=== PATIENT | male | born 1970 | race Caucasian/White ===

== ENCOUNTER 2016-07-06 11:00 | Emergency (ER) | payer OTHER, MEDICARE ==
[~2016-07-06 11:00] MED LIST: CEFU1TAB43 PO; CIPR500T93 PO; COLL30OI3 TOP; DIAZ5TAB PO; DILA2TAB2; ENAL10TA7 PO; FLAG250T PO; FURO1TAB93 PO; GABA300C3 PO; LOSA25TA31 PO; METH5SOL3 PO; METO10 PO; NOVOLOGP2 SQ; OXYC10TA8 PO; PANT20 PO; POTA10IN2 PO; SSD1CRE TOP; TRAD5TAB PO; WHEEMIS3 XX; ZOFR8TAB PO; [UNRECOGNIZED DRUG - CODE] PO
[2016-07-06 11:25] VITALS: BP 140/83; PULSE 93; RESP 18; TEMP 98.3; O2SAT 96
[2016-07-06] MEDS ORDERED: SODIUM CHLORIDE 0.9% FLUSH 10 ML FLUSH IVF PRN (11:45)
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
[2016-07-06 12:36] LABS: AUTOMATED NEUTROPHIL # 9.2 TH/MM3 (1.8-7.7); BASOPHIL # 0.1 TH/MM3 (0-0.2); BASOPHIL % 0.8 % (0.0-2.0); EOSINOPHIL # 0.2 TH/MM3 (0-0.4); EOSINOPHIL % 1.6 % (0.0-4.0); HEMATOCRIT 43.3 % (39.0-51.0); LYMPH % 15.5 % (9.0-44.0); MEAN CELL VOLUME 84.3 FL (80.0-100.0); MEAN CORPUSCULAR HEMOGLOBIN 28.3 PG (27.0-34.0); MEAN CORPUSCULAR HGB CONC 33.6 % (32.0-36.0); NEUT % 72.1 % (16.0-70.0); PLATELET COUNT 203 TH/MM3 (150-450); RED BLOOD COUNT 5.14 MIL/MM3 (4.50-5.90); WHITE BLOOD COUNT 12.8 TH/MM3 (4.0-11.0)
[2016-07-06 12:42] LABS: HEMO FLAGS AUTO DIFF
[2016-07-06 12:50] LABS: APTT (PATIENT) 20.6 SEC (24.3-30.1); INTERNATIONAL NORMALIZED RATIO 0.9 RATIO; PROTHROMBIN TIME - PATIENT 9.6 SEC (9.8-11.6)
[2016-07-06 12:51] LABS: ALKALINE PHOSPHATASE 80 U/L (45-117); TOTAL BILIRUBIN ADULT 0.3 MG/DL (0.2-1.0)
[2016-07-06 12:52] LABS: ALT (GPT) 21 U/L (12-78); ANION GAP 7 MEQ/L (5-15); AST (GOT) 22 U/L (15-37); BICARBONATE 25.7 MEQ/L (21.0-32.0); BLOOD UREA NITROGEN 16 MG/DL (7-18); CHLORIDE 106 MEQ/L (98-107); GLOMERULAR FILTRATION RATE 79 ML/MIN (>89); POTASSIUM 4.5 MEQ/L (3.5-5.1); SODIUM (NA) 139 MEQ/L (136-145)
[2016-07-06] MEDS ORDERED: KETOROLAC TROMETHAMINE 30 MG/ML (IVP) VIAL IV PUSH ONE (13:00)
[2016-07-06] MEDS ORDERED: ORPHENADRINE INJ 60 MG/2 ML AMP IV ONE (13:00)
[2016-07-06 13:15] LABS: PLATELET ESTIMATE SMEAR NORMAL (NORMAL)
[2016-07-06 13:16] LABS: PLATELET MORPHOLOGY NORMAL (NORMAL); SCAN/DIFF AUTO DIFF CONFIRMED
[2016-07-06] MEDS ORDERED: IOHEXOL 350 MG/ML 10 ML VIAL (for RAD DIAG) IV ONE (14:10)
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
[2016-07-06] MEDS ORDERED: CYCL1TAB29 PO (14:41)
[2016-07-06] MEDS ORDERED: MOBI15TA PO (14:41)
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
[2016-07-06 15:04] VITALS: BP 139/78
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
== END 2016-07-06 15:27 | disposition home or self-care (01) ==
LOC: NEDAMB 11:00
DX: M62.838 Other muscle spasm (principal); T14.8 Other injury of unspecified body region; V43.62XA Car passenger injured in collision with other type car in traffic accident, initial encounter; W22.12XA Striking against or struck by front passenger side automobile airbag, initial encounter; Y93.9 Activity, unspecified; Y92.9 Unspecified place or not applicable; Y99.9 Unspecified external cause status; E11.9 Type 2 diabetes mellitus without complications; Z86.14 Personal history of Methicillin resistant Staphylococcus aureus infection; I10 Essential (primary) hypertension; Z89.512 Acquired absence of left leg below knee; F17.210 Nicotine dependence, cigarettes, uncomplicated
CPT/HCPCS: 70450; 71020; 72125; 72131; 74177; 80053; 85025; 85610; 85730; 96374; 96375; 99284; J1885; J2360; Q9967

== ENCOUNTER 2016-07-13 15:06 | Emergency (ER) | payer MEDICARE, OTHER ==
[~2016-07-13] VITALS: Ht 177.8 cm; Wt 107.5 kg
[~2016-07-13 15:06] MED LIST changes: +CYCL1TAB29 PO; +MOBI15TA PO
[2016-07-13 15:08] VITALS: BP 132/82; PULSE 118; RESP 18; TEMP 102.7; O2SAT 96
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
[2016-07-14] MEDS ORDERED: POTA10TA8 PO (06:40)
[2016-07-14] MEDS ORDERED: AMLO5TAB2 PO (06:40)
[2016-07-14] MEDS ORDERED: NOVOLOGP2 SQ (06:40)
[2016-07-14] MEDS ORDERED: VIAG100T PO (06:40)
[2016-07-14] MEDS ORDERED: PANT20TA2 PO (06:40)
[2016-07-14] MEDS ORDERED: ERYT250T PO (06:40)
[2016-07-14] MEDS ORDERED: FURO1TAB60 PO (06:40)
[2016-07-14] MEDS ORDERED: ZOFR4TAB PO (06:40)
[2016-07-14] MEDS ORDERED: GABA400C5 PO ×2 (06:40→09:38)
[2016-07-14] MEDS ORDERED: tresiba SQ (06:40)
[2016-07-14] MEDS ORDERED: DIAZ10TA PO (06:40)
[2016-07-14] MEDS ORDERED: METO10TA PO (06:40)
[2016-07-14] MEDS ORDERED: METH10TA PO (06:40)
[2016-07-14] MEDS ORDERED: OXYC-395 PO (09:38)
== END 2016-07-13 21:00 | disposition left against medical advice (07) ==
LOC: NED 15:06
DX: S89.91XA Unspecified injury of right lower leg, initial encounter (principal); Z53.21 Procedure and treatment not carried out due to patient leaving prior to being seen by health care provider; V49.9XXA Car occupant (driver) (passenger) injured in unspecified traffic accident, initial encounter
CPT/HCPCS: 99282

== ENCOUNTER 2016-07-14 05:18 | Inpatient (IN) | payer MEDICARE, OTHER ==
[2016-07-14] VITALS (11 sets, daily range): BP systolic 100–115; BP diastolic 58–68; PULSE 67–118; RESP 16–18; TEMP 96.5–100.4; O2SAT 93–100
[~2016-07-14] VITALS: Ht 177.8 cm; Wt 109.3 kg
[2016-07-14] MEDS ORDERED: SODIUM CHLORIDE 0.9% FLUSH 10 ML FLUSH IV FLUSH PRN (05:30)
[2016-07-14] MEDS ORDERED: VANCOMYCIN INJ 1,000 MG in SODIUM CHLOR 0.9% 250 ML INJ 250 ML IV ONE ×2 (05:45→12:00)
[2016-07-14] MEDS ORDERED: AZTREONAM INJ 2,000 MG in SODIUM CHLORIDE 0.9% INJ 100 ML IV ONE (05:45)
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
[2016-07-14 06:23] LABS: AUTOMATED NEUTROPHIL # 12.2 TH/MM3 (1.8-7.7); BASOPHIL % 0.3 % (0.0-2.0); EOSINOPHIL # 0.1 TH/MM3 (0-0.4); EOSINOPHIL % 0.5 % (0.0-4.0); HEMATOCRIT 35.3 % (39.0-51.0); LYMPH % 5.8 % (9.0-44.0); LYMPHOCYTE # 0.9 TH/MM3 (1.0-4.8); MEAN CELL VOLUME 84.2 FL (80.0-100.0); MEAN CORPUSCULAR HEMOGLOBIN 27.6 PG (27.0-34.0); MEAN CORPUSCULAR HGB CONC 32.7 % (32.0-36.0); MONO % 15.5 % (0.0-8.0); NEUT % 77.9 % (16.0-70.0); PLATELET COUNT 239 TH/MM3 (150-450); RED BLOOD COUNT 4.19 MIL/MM3 (4.50-5.90); RED CELL DISTRIBUTION WIDTH 15.2 % (11.6-17.2); WHITE BLOOD COUNT 15.7 TH/MM3 (4.0-11.0)
[2016-07-14 06:29] LABS: HEMO FLAGS AUTO DIFF
[2016-07-14 06:32] LABS: APTT (PATIENT) 29.6 SEC (24.3-30.1); PROTHROMBIN TIME - PATIENT 11.2 SEC (9.8-11.6)
[2016-07-14] MEDS ORDERED: FURO1TAB60 PO (06:40)
[2016-07-14] MEDS ORDERED: NOVOLOGP2 SQ (06:40)
[2016-07-14] MEDS ORDERED: GABA400C5 PO ×2 (06:40→09:38)
[2016-07-14] MEDS ORDERED: tresiba SQ (06:40)
[2016-07-14] MEDS ORDERED: AMLO5TAB2 PO (06:40)
[2016-07-14] MEDS ORDERED: METH10TA PO (06:40)
[2016-07-14] MEDS ORDERED: PANT20TA2 PO (06:40)
[2016-07-14] MEDS ORDERED: DIAZ10TA PO (06:40)
[2016-07-14] MEDS ORDERED: METO10TA PO (06:40)
[2016-07-14] MEDS ORDERED: POTA10TA8 PO (06:40)
[2016-07-14] MEDS ORDERED: VIAG100T PO (06:40)
[2016-07-14] MEDS ORDERED: ZOFR4TAB PO (06:40)
[2016-07-14] MEDS ORDERED: ERYT250T PO (06:40)
[2016-07-14 06:46] LABS: ALT (GPT) 24 U/L (12-78); ANION GAP 11 MEQ/L (5-15); AST (GOT) 33 U/L (15-37); BICARBONATE 23.7 MEQ/L (21.0-32.0); BLOOD UREA NITROGEN 42 MG/DL (7-18); CHLORIDE 93 MEQ/L (98-107); GLOMERULAR FILTRATION RATE 33 ML/MIN (>89); POTASSIUM 4.3 MEQ/L (3.5-5.1); SODIUM (NA) 128 MEQ/L (136-145)
[2016-07-14 06:48] LABS: ALKALINE PHOSPHATASE 108 U/L (45-117); TOTAL BILIRUBIN ADULT 0.6 MG/DL (0.2-1.0)
[2016-07-14 07:22] LABS: BANDS 18 % (0-6); EOSINOPHILS 2 % (0-4); MYELOCYTES 1 % (0-0); PLATELET ESTIMATE SMEAR NORMAL (NORMAL); PLATELET MORPHOLOGY ENLARGED (NORMAL); POLYS (SEG NEUTROPHILS) 64 % (16-70); WBC DIFF SAMPLE 100
[2016-07-14 07:23] LABS: SCAN/DIFF FINAL DIFF MANUAL
--- NOTE | 2016-07-14 07:41 | PD ---
Physical Exam Date Seen by Provider: Jul 14, 2016 Time Seen by Provider: 07:38 Narrative 45-year-old male came to the emergency room with history of right leg swelling and redness and pain since past 10 days. Patient had a temperature of 100.4 in the ER. His primary care sent him to the emergency room for infection and rule out DVT. Patient is a diabetic. He was seen by the previous ER physician. Please refer to his notes for details. Patient has his blood test results back and he has leukocytosis. Differential came back and shows bandemia. Currently he is waiting for an ultrasound to be done and reported. He has received Azactam and vancomycin ordered by the previous physician. Patient will require admission once the ultrasound report is back. I put a call out for podiatry. Waiting for them to call back. I looked at the leg and it is red, warm to touch , swollen and looks infected. He definitely would require surgery. There is a good chance this underlying osteomyelitis. I will go ahead and order an MRI as well. Data Data Last Documented VS Vital Signs Date Time Temp Pulse Resp B/P Pulse Ox O2 Delivery O2 Flow Rate FiO2 07/14/16 07:17 98.4 98 18 105/58 97 Nasal Cannula 2 Orders Complete Blood Count With Diff (07/14/16 05:27) Comprehensive Metabolic Panel (07/14/16 05:27) Lactic Acid (07/14/16 05:27) Prothrombin Time / Inr (Pt) (07/14/16 05:27) Act Partial Throm Time (Ptt) (07/14/16 05:27) Iv Access Insert/Monitor (07/14/16 05:27) Ecg Monitoring (07/14/16 05:27) Oximetry (07/14/16 05:27) Sodium Chloride 0.9% Flush (Ns Flush) (07/14/16 05:30) Electrocardiogram (07/14/16 05:27) Blood Culture (07/14/16 05:30) Vancomycin Inj (Vancomycin Inj) (07/14/16 05:45) Aztreonam Inj (Azactam Inj) (07/14/16 05:45) C-Reactive Protein (Crp) (07/14/16 05:41) Westergren Sedimentation Rate (07/14/16 05:41) Us Leg Venous Doppler (07/14/16 05:50) Mri Foot W&W/O Contrast (07/14/16 ) Admit Order (Ed Use Only) (07/14/16 08:43) Labs Laboratory Tests Test 07/14/16 05:54 White Blood Count 15.7 TH/MM3 Red Blood Count 4.19 MIL/MM3 Hemoglobin 11.5 GM/DL Hematocrit 35.3 % Mean Corpuscular Volume 84.2 FL Mean Corpuscular Hemoglobin 27.6 PG Mean Corpuscular Hemoglobin 32.7 % Concent Red Cell Distribution Width 15.2 % Platelet Count 239 TH/MM3 Mean Platelet Volume 9.9 FL Neutrophils (%) (Auto) 77.9 % Lymphocytes (%) (Auto) 5.8 % Monocytes (%) (Auto) 15.5 % Eosinophils (%) (Auto) 0.5 % Basophils (%) (Auto) 0.3 % Neutrophils # (Auto) 12.2 TH/MM3 Lymphocytes # (Auto) 0.9 TH/MM3 Monocytes # (Auto) 2.4 TH/MM3 Eosinophils # (Auto) 0.1 TH/MM3 Basophils # (Auto) 0.0 TH/MM3 CBC Comment AUTO DIFF Differential Total Cells 100 Counted Neutrophils % (Manual) 64 % Band Neutrophils % 18 % Lymphocytes % 5 % Monocytes % 10 % Eosinophils % 2 % Neutrophils # (Manual) 13.0 TH/MM3 Myelocytes 1 % Differential Comment FINAL DIFF MANUAL Atypical Lymphocytes % Platelet Estimate NORMAL Platelet Morphology Comment ENLARGED Erythrocyte Sedimentation Rate 37 mm/hr Prothrombin Time 11.2 SEC Prothromb Time International 1.0 RATIO Ratio Activated Partial 29.6 SEC Thromboplast Time Sodium Level 128 MEQ/L Potassium Level 4.3 MEQ/L Chloride Level 93 MEQ/L Carbon Dioxide Level 23.7 MEQ/L Anion Gap 11 MEQ/L Blood Urea Nitrogen 42 MG/DL Creatinine 2.16 MG/DL Estimat Glomerular Filtration 33 ML/MIN Rate Random Glucose 268 MG/DL Hemoglobin A1c 8.9 % Lactic Acid Level 1.3 mmol/L Calcium Level 8.5 MG/DL Total Bilirubin 0.6 MG/DL Aspartate Amino Transf 33 U/L (AST/SGOT) Alanine Aminotransferase 24 U/L (ALT/SGPT) Alkaline Phosphatase 108 U/L C-Reactive Protein 26.00 MG/DL Total Protein 6.5 GM/DL Albumin 2.0 GM/DL MDM Supervised Visit with AMBER: No Narrative Course 8:41 AM I spoke with Dr. Orona from podiatry. She was aware of this patient since her partner had mentioned last night. She wanted to make sure that the ultrasound was done which it has been but the report has not been generated yet. Awaiting for that. She wanted an MRI to be ordered which has been ordered. She would plan to take this patient to the OR at some point. She was in agreement with the antibiotic and the management so far. I discussed the case with the hospitalist with has accepted the patient. Patient was requesting for pain medication since he said his pain was coming back in 1 was ordered. 8:52 AM ultrasound called to let me know that they did not see any DVT in that leg. Physician Communication Physician Communication Dr. Orona, Dr. Gamez Diagnosis Primary Impression: SIRS (systemic inflammatory response syndrome) Additional Impressions: Osteomyelitis Qualified Code: M86.9 - Osteomyelitis of right foot, unspecified type Swollen leg Admitting Information Admitting Physician Requests: it Lulu Howard MD Jul 14, 2016 07:41
--- NOTE | 2016-07-14 09:05 | RADRPT ---
EXAM DATE/TIME: 07/14/2016 07:37 [facility] COMPARISON: No previous studies available for comparison. INDICATIONS : Right leg pain and swelling. MEDICAL HISTORY : Osteoarthritis. Head injury. Right foot neuropathy. Gastroparesis. Diabetes. MRSA. SURGICAL HISTORY : Left below the knee amputation. Right ankle screws. Face reconstruction. ENCOUNTER: Initial ACUITY: 2 weeks PAIN SCORE: 8/10 LOCATION: Right leg. TECHNIQUE: Venous ultrasound of the leg was performed from the inguinal ligament to the proximal calf. Real-emir e, color Doppler and spectral tracing, compression and augmentation techniques were used. FINDINGS: There is normal compressibility of the deep venous system from the inguinal region to the proximal ca lf. No echogenic clot is seen in the lumen of the common femoral, femoral, popliteal, and posterior tibial veins. There is a normal response of the venous system to proximal and distal augmentation an d respiration. CONCLUSION: Normal examination. Shaun Conner MD on July 14, 2016 at 9:03 Board Certified Radiologist. This report was verified electronically.
[2016-07-14] MEDS ORDERED: Vancomycin Consult Pharmacy 1 EA OTHER SCH (09:15)
[2016-07-14] MEDS ORDERED: ACETAMINOPHEN 325 MG TAB PO PRN (09:15)
[2016-07-14] MEDS ORDERED: OXYC-395 PO (09:38)
[2016-07-14] MEDS: HYDROmorphone HCL PF 1 MG/ML VIAL IV PUSH PRN ×2 (10:37→18:40)
[2016-07-14] MEDS: SODIUM CHLOR 0.9% 1000 ML INJ 1,000 ML IV SCH (10:37)
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
[2016-07-14] MEDS ORDERED: GADOBENATE DIM PF 529 MG/ML 20ML VIAL (for RAD MRI) IV ONE (11:53)
[2016-07-14] MEDS: METHADONE HCL 10 MG TAB PO SCH ×3 (12:06→22:21)
[2016-07-14] MEDS: METOCLOPRAMIDE HCL 10 MG TAB PO SCH ×2 (12:08→18:37)
[2016-07-14] MEDS: INSULIN ASPART SUPPLEMENTAL SCALE SQ SCH ×3 (12:11→22:20)
[2016-07-14] MEDS ORDERED: GABAPENTIN 400 MG CAP PO SCH (13:00)
--- NOTE | 2016-07-14 13:49 | RADRPT ---
EXAM DATE/TIME: 07/14/2016 11:10 [facility] COMPARISON: No previous studies available for comparison. INDICATIONS : Osteomyelitis. CONTRAST: 20 cc Multihance (gadobenate) IV MEDICAL HISTORY : Diabetes mellitus type 2. Hypertension. Methicillin-resistant Staphylococcus aureus. SURGICAL HISTORY : Amputation left leg. ENCOUNTER: Initial ACUITY: 4-6 days PAIN SCORE: 5/10 LOCATION: Right foot/ankle TECHNIQUE: Multiplanar, multisequence MRI examination was performed without contrast and after the intravenous a dministration of gadolinium. FINDINGS: There is a hourglass shaped abscess between the second and third metatarsals extending both dorsal an d plantar to the bones in aggregate measuring 3.5 x 1.5 CM. This extends dorsally over the tarsal bon es with multiple small locules of abscess at the level of the tarsals. There is extensive enhancement involving the musculature of the foot characteristic of myositis. There is marrow edema involving th e proximal half of the second and third metatarsals as well as the cuneiforms characteristic of osteo myelitis. The hindfoot appears intact. CONCLUSION: 1. Bodies left myelitis involving the second and third metatarsals as well as the cuneiforms. 2. Multilocular abscess is present as described above predominantly between the second and third meta tarsals. Cuong Roldan MD on July 14, 2016 at 13:42 Board Certified Radiologist. This report was verified electronically.
[2016-07-14] MEDS: DIAZEPAM 10 MG TAB PO PRN (15:22)
[2016-07-14] MEDS: AZTREONAM INJ 2,000 MG in SODIUM CHLORIDE 0.9% INJ 100 ML IV SCH ×2 (15:43→22:21)
[2016-07-14 15:47] LABS: HEMOGLOBIN A1a 0.7 %; HEMOGLOBIN A1b 2.5 %; HEMOGLOBIN Ao 78.4 %; HEMOGLOBIN LA1C 3.3 %; HEMOGLOBIN P3 5.4 %
--- NOTE | 2016-07-14 17:08 | EKG ---
Date Performed: 07/14/2016 Time Performed: 06:44:19 PTAGE: 45 years EKG: SINUS TACHYCARDIA MODERATE VOLTAGE CRITERIA FOR LVH, CONSIDER NORMAL VARIANT WHEN COMPARED TO PRIOR TRACING PATIENT HAS MODERATE VOLTAGE CRITERIA FOR LVH. ABNORMAL RHYTHM ECG PREVIOUS TRACING : 12/17/2015 19.03 DOCTOR: Ellen Dick Interpretating Date/Time 07/14/2016 17:08:15
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
[2016-07-14] MEDS: GABAPENTIN 400 MG CAP PO SCH (22:22)
[2016-07-15] VITALS (9 sets, daily range): BP systolic 109–124; BP diastolic 62–71; PULSE 80–107; RESP 16–48; TEMP 97.4–98.3; O2SAT 92–97
[2016-07-15] MEDS: SODIUM CHLOR 0.9% 1000 ML INJ 1,000 ML IV SCH ×3 (00:05→23:58)
[2016-07-15] MEDS: HYDROmorphone HCL PF 1 MG/ML VIAL IV PUSH PRN ×2 (00:36→08:26)
[2016-07-15 05:56] LABS: BASOPHIL # 0.1 TH/MM3 (0-0.2); BASOPHIL % 0.6 % (0.0-2.0); EOSINOPHIL # 0.2 TH/MM3 (0-0.4); EOSINOPHIL % 1.7 % (0.0-4.0); HEMATOCRIT 31.9 % (39.0-51.0); HEMO FLAGS DIFF FINAL; LYMPH % 8.9 % (9.0-44.0); LYMPHOCYTE # 1.2 TH/MM3 (1.0-4.8); MEAN CELL VOLUME 84.3 FL (80.0-100.0); MEAN CORPUSCULAR HEMOGLOBIN 27.2 PG (27.0-34.0); MEAN CORPUSCULAR HGB CONC 32.3 % (32.0-36.0); MONO % 15.5 % (0.0-8.0); NEUT % 73.3 % (16.0-70.0); PLATELET COUNT 286 TH/MM3 (150-450); RED BLOOD COUNT 3.79 MIL/MM3 (4.50-5.90); RED CELL DISTRIBUTION WIDTH 15.3 % (11.6-17.2); WHITE BLOOD COUNT 13.6 TH/MM3 (4.0-11.0)
[2016-07-15] MEDS: AZTREONAM INJ 2,000 MG in SODIUM CHLORIDE 0.9% INJ 100 ML IV SCH ×3 (06:16→23:53)
[2016-07-15 06:20] LABS: BICARBONATE 23.5 MEQ/L (21.0-32.0); MAGNESIUM 2.3 MG/DL (1.5-2.5); POTASSIUM 4.1 MEQ/L (3.5-5.1)
[2016-07-15] MEDS: INSULIN ASPART SUPPLEMENTAL SCALE SQ SCH ×4 (06:21→22:12)
[2016-07-15] MEDS: PANTOPRAZOLE SOD 40 MG DELAYED RELEASE TAB PO SCH (08:25)
[2016-07-15] MEDS: METOCLOPRAMIDE HCL 10 MG TAB PO SCH ×3 (08:25→16:37)
[2016-07-15] MEDS: GABAPENTIN 400 MG CAP PO SCH ×2 (08:25→21:00)
[2016-07-15] MEDS: METHADONE HCL 10 MG TAB PO SCH ×4 (08:26→21:00)
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
[2016-07-15] MEDS ORDERED: PANTOPRAZOLE SOD 20 MG DELAYED RELEASE TAB PO SCH (09:00)
[2016-07-15] MEDS ORDERED: HEPARIN SODIUM - SQ 10,000 UNITS/ML VIAL SQ SCH (09:00)
[2016-07-15] MEDS ORDERED: PANTOPRAZOLE SOD 40 MG DELAYED RELEASE TAB PO SCH (09:00)
[2016-07-15] MEDS ORDERED: amLODIPine BESYLATE 5 MG TAB PO SCH ×2 (09:00)
[2016-07-15] MEDS ORDERED: PROPOFOL 200 MG/20 ML AMP IV ONE (09:08)
[2016-07-15] MEDS ORDERED: ONDANSETRON HCL 4 MG/2 ML VIAL IV PUSH ONE (09:08)
[2016-07-15] MEDS: VANCOMYCIN INJ 1,500 MG in SODIUM CHLORID 0.9% 500 ML INJ 500 ML IV SCH (12:21)
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
[2016-07-15] MEDS ORDERED: ACETAMINOPHEN 1000 MG/100 ML VIAL IV ONE (20:03)
[2016-07-15] MEDS ORDERED: fentaNYL CITRATE 250 MCG/5 ML AMP ONE (20:22)
[2016-07-15] MEDS ORDERED: INSULIN DETEMIR 100 UNITS/ML VIAL SQ SCH (21:00)
[2016-07-16] VITALS (7 sets, daily range): BP systolic 88–132; BP diastolic 62–76; PULSE 68–90; RESP 17–20; TEMP 96.1–97.9; O2SAT 94–98
[2016-07-16] MEDS: AZTREONAM INJ 2,000 MG in SODIUM CHLORIDE 0.9% INJ 100 ML IV SCH ×3 (06:13→23:06)
[2016-07-16] MEDS: INSULIN ASPART SUPPLEMENTAL SCALE SQ SCH ×4 (06:13→21:52)
[2016-07-16 06:18] LABS: AUTOMATED NEUTROPHIL # 10.8 TH/MM3 (1.8-7.7); BASOPHIL # 0.1 TH/MM3 (0-0.2); BASOPHIL % 0.5 % (0.0-2.0); EOSINOPHIL # 0.1 TH/MM3 (0-0.4); EOSINOPHIL % 0.6 % (0.0-4.0); HEMATOCRIT 30.2 % (39.0-51.0); LYMPH % 5.2 % (9.0-44.0); LYMPHOCYTE # 0.7 TH/MM3 (1.0-4.8); MEAN CELL VOLUME 84.9 FL (80.0-100.0); MEAN CORPUSCULAR HEMOGLOBIN 28.2 PG (27.0-34.0); MEAN CORPUSCULAR HGB CONC 33.2 % (32.0-36.0); MONO % 15.8 % (0.0-8.0); NEUT % 77.9 % (16.0-70.0); PLATELET COUNT 361 TH/MM3 (150-450); RED BLOOD COUNT 3.55 MIL/MM3 (4.50-5.90); RED CELL DISTRIBUTION WIDTH 15.7 % (11.6-17.2); WHITE BLOOD COUNT 13.9 TH/MM3 (4.0-11.0)
[2016-07-16 06:34] LABS: HEMO FLAGS AUTO DIFF
[2016-07-16 06:45] LABS: BICARBONATE 22.7 MEQ/L (21.0-32.0); MAGNESIUM 2.3 MG/DL (1.5-2.5); POTASSIUM 4.6 MEQ/L (3.5-5.1)
[2016-07-16 07:52] LABS: NEUTROPHIL # MANUAL DIFF 10.1 TH/MM3 (1.8-7.7); PLATELET ESTIMATE SMEAR NORMAL (NORMAL); PLATELET MORPHOLOGY NORMAL (NORMAL); POLYS (SEG NEUTROPHILS) 73 % (16-70); SCAN/DIFF FINAL DIFF MANUAL; WBC DIFF SAMPLE 100
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
[2016-07-16] MEDS ORDERED: LACTULOSE SYRUP 20 GM/30 ML CUP PO ONE (08:45)
[2016-07-16] MEDS: HEPARIN SODIUM - SQ 10,000 UNITS/ML VIAL SQ SCH ×2 (09:00→21:39)
--- NOTE | 2016-07-16 09:12 | HHI.IDPN ---
Subjective Subjective Remarks Notes reviewed Temps ok Feels better Had OR yesterday - I and D R foot with bone biopsy C/S pending WBC still 13K ESR 37 CRP 26 Antibiotics Azactam Vancomycin Lines PIV Past Medical History Diabetes mellitus HTN Hyperlipidemia Chronic pain syndrome Gastroparesis Depression/Anxiety Morbid obesity Peripheral neuropathy PVD PIPPA Previous diabetic foot infections Past Surgical History Right 5th ray amputation in 04/2016 Left BKA in 2004 Right ankle surgery with hardware placement in 1984 Facial reconstructive surgery in 1982 Allergies: Coded Allergies: Enalapril (Verified Allergy, Severe, Rash, 07/14/16) Penicillin (Verified Allergy, Severe, MRSA, 07/14/16) *MDRO Multi-Drug Resistant Organism (Verified Adverse Reaction, Unknown, ) MRSA (wound) - 2002 MRSA PCR Screens NEGATIVE - 12/31/15 & 01/02/2016 CLEARED BY INFECTION CONTROL Objective . Vital Signs Date Time Temp Pulse Resp B/P Pulse Ox O2 Delivery O2 Flow Rate FiO2 07/16/16 08:00 96.1 68 18 88/63 97 07/16/16 04:00 96.6 90 17 101/64 94 07/15/16 23:05 107 07/15/16 23:00 98.2 107 18 124/66 97 07/15/16 22:45 99.1 109 15 151/70 97 Nasal Cannula 2 07/15/16 22:30 112 16 136/71 97 Nasal Cannula 2 07/15/16 22:15 106 16 157/80 95 Nasal Cannula 2 07/15/16 22:00 110 17 153/75 97 Nasal Cannula 2 07/15/16 21:55 99.0 100 19 182/79 95 Nasal Cannula 2 07/15/16 20:01 100.9 94 18 138/71 94 07/15/16 19:55 93 07/15/16 16:00 98.2 81 18 124/62 92 07/15/16 12:00 98.0 80 18 121/66 94 07/15/16 07/15/16 07/16/16 15:00 23:00 07:00 Intake Total 600 ml 2220 ml 480 ml Output Total 300 ml 10 ml 550 ml Balance 300 ml 2210 ml -70 ml Intake Oral 600 ml 360 ml 480 ml IV Total 1260 ml Other 600 ml Output Urine Total 300 ml 550 ml Estimated Blood Loss 10 ml . Laboratory Tests Test 07/15/16 07/16/16 04:37 05:46 White Blood Count 13.6 TH/MM3 13.9 TH/MM3 Red Blood Count 3.79 MIL/MM3 3.55 MIL/MM3 Hemoglobin 10.3 GM/DL 10.0 GM/DL Hematocrit 31.9 % 30.2 % Mean Corpuscular Volume 84.3 FL 84.9 FL Mean Corpuscular Hemoglobin 27.2 PG 28.2 PG Mean Corpuscular Hemoglobin 32.3 % 33.2 % Concent Red Cell Distribution Width 15.3 % 15.7 % Platelet Count 286 TH/MM3 361 TH/MM3 Mean Platelet Volume 9.6 FL 9.3 FL Neutrophils (%) (Auto) 73.3 % 77.9 % Lymphocytes (%) (Auto) 8.9 % 5.2 % Monocytes (%) (Auto) 15.5 % 15.8 % Eosinophils (%) (Auto) 1.7 % 0.6 % Basophils (%) (Auto) 0.6 % 0.5 % Neutrophils # (Auto) 10.0 TH/MM3 10.8 TH/MM3 Lymphocytes # (Auto) 1.2 TH/MM3 0.7 TH/MM3 Monocytes # (Auto) 2.1 TH/MM3 2.2 TH/MM3 Eosinophils # (Auto) 0.2 TH/MM3 0.1 TH/MM3 Basophils # (Auto) 0.1 TH/MM3 0.1 TH/MM3 CBC Comment DIFF FINAL AUTO DIFF Differential Comment FINAL DIFF MANUAL Differential Total Cells 100 Counted Neutrophils % (Manual) 73 % Lymphocytes % 10 % Monocytes % 17 % Neutrophils # (Manual) 10.1 TH/MM3 Platelet Estimate NORMAL Platelet Morphology Comment NORMAL Red Cell Morphology Comment NORMAL Laboratory Tests Test 07/15/16 07/16/16 04:37 05:46 Sodium Level 130 MEQ/L 130 MEQ/L Potassium Level 4.1 MEQ/L 4.6 MEQ/L Chloride Level 95 MEQ/L 99 MEQ/L Carbon Dioxide Level 23.5 MEQ/L 22.7 MEQ/L Anion Gap 12 MEQ/L 8 MEQ/L Blood Urea Nitrogen 51 MG/DL 55 MG/DL Creatinine 1.85 MG/DL 1.93 MG/DL Estimat Glomerular Filtration 40 ML/MIN 38 ML/MIN Rate Random Glucose 186 MG/DL 264 MG/DL Calcium Level 8.9 MG/DL 8.6 MG/DL Magnesium Level 2.3 MG/DL 2.3 MG/DL Microbiology Date/Time Procedure Status Source Growth 07/14/16 05:50 Aerobic Blood Culture - Preliminary Resulted Blood Peripheral NO GROWTH IN 1 DAY 07/14/16 05:50 Anaerobic Blood Culture - Preliminary Resulted Blood Peripheral NO GROWTH IN 1 DAY 07/14/16 06:00 Aerobic Blood Culture - Preliminary Resulted Blood Peripheral NO GROWTH IN 1 DAY 07/14/16 06:00 Anaerobic Blood Culture - Preliminary Resulted Blood Peripheral NO GROWTH IN 1 DAY 07/15/16 21:15 Gram Stain - Final Resulted Wound Foot 07/15/16 21:15 Wound Culture Resulted Wound Foot Pending 07/15/16 21:15 Acid Fast Stain Received Wound Foot Pending 07/15/16 21:15 Mycobacterial Culture Received Wound Foot Pending 07/15/16 21:15 Fungal Smear - Final Resulted Wound Foot NO FUNGAL ELEMENTS SEEN. 07/15/16 21:15 Fungal Culture Resulted Wound Foot Pending 07/15/16 21:16 Gram Stain - Final Resulted Wound Foot 07/15/16 21:16 Wound Culture Resulted Wound Foot Pending 07/15/16 21:16 Acid Fast Stain Received Wound Foot Pending 07/15/16 21:16 Mycobacterial Culture Received Wound Foot Pending 07/15/16 21:16 Fungal Smear - Final Resulted Wound Foot NO FUNGAL ELEMENTS SEEN. 07/15/16 21:16 Fungal Culture Resulted Wound Foot Pending Imaging Last Impressions Lower Extremity Ultrasound 07/14/16 0550 Signed Impressions: Service Date/Time: Thursday, July 14, 2016 07:37 - CONCLUSION: Normal examination. Shaun Conner MD Foot MRI 07/14/16 0000 Signed Impressions: Service Date/Time: Thursday, July 14, 2016 11:10 - CONCLUSION: 1. Bodies left myelitis involving the second and third metatarsals as well as the cuneiforms. 2. Multilocular abscess is present as described above predominantly between the second and third metatarsals. Cuong Roldan MD Physical Exam GENERAL: obese male, awake and alert, in no apparent distress. SKIN: Warm and moist. No generalized rash or ecchymosis. HEENT: [place] conjunctivae. No scleral icterus. No injection or drainage. Moist oral mucosa. NECK: Trachea midline. No JVD or lymphadenopathy. Supple, nontender, no meningeal signs. CARDIOVASCULAR: Regular rate and rhythm without murmurs, gallops, or rubs. RESPIRATORY: Clear to auscultation. Breath sounds equal bilaterally. No wheezes , rales, or rhonchi. Decreased breath sounds at the bases. GASTROINTESTINAL: Abdomen soft, obese, non-tender, nondistended. Sounds are present and normoactive. No hepato-splenomegaly, or palpable masses. No guarding. MUSCULOSKELETAL: He is status post left BKA in the left lower extremity, with a well-healed stump. RLE very edematous, has dressing in place. No calf tenderness. Negative Homans sign bilaterally. NEUROLOGICAL: Non-focal PSYCH: Normal affect, calm and cooperative LINE: PIV with no evidence of infection Assessment & Plan Remarks IMPRESSION Sepsis on adm due to infection R foot DFI R foot with abscess and oste 2nd and 3rd MT Previous amp R 5th toe and ray resection MT April 2016 Hx previous DFI S/P L BKA Obesity Renal insufficiency, worsened by sepsis Allergies to penicillin, but tolerates cephalosporins RECOMMENDATION Continue Vanco Continue Azactam Follow OR culture Monitor temps Monitor progress Will determine course of Rx once biopsy results and C/S finalized, and also if there are any other surgical intervention that will be done Brenda Watson MD Jul 16, 2016 09:12
[2016-07-16] MEDS: PANTOPRAZOLE SOD 40 MG DELAYED RELEASE TAB PO SCH (09:18)
[2016-07-16] MEDS: GABAPENTIN 400 MG CAP PO SCH ×2 (09:18→21:36)
[2016-07-16] MEDS: METHADONE HCL 10 MG TAB PO SCH ×4 (09:18→21:36)
[2016-07-16] MEDS: INSULIN DETEMIR 100 UNITS/ML VIAL SQ SCH ×2 (09:18→21:51)
[2016-07-16] MEDS: DOCUSATE SODIUM 100 MG CAP PO SCH ×2 (09:18→21:36)
[2016-07-16] MEDS: METOCLOPRAMIDE HCL 10 MG TAB PO SCH ×3 (09:19→16:31)
[2016-07-16] MEDS: VANCOMYCIN INJ 1,500 MG in SODIUM CHLORID 0.9% 500 ML INJ 500 ML IV SCH (11:58)
[2016-07-16 14:15] LABS: BLOOD, URINE MOD (NEG); GLUCOSE,URINE NEG (NEG); HYALINE CAST, URINE 4 /lpf (RARE); KETONE, URINE NEG (NEG); NITRITE,URINE NEG (NEG); URINE COLOR YELLOW (YELLW/STRAW)
[2016-07-16 14:16] LABS: COMMENT (UR) CULT NOT INDICATED; CULTURE IF INDICATED CULT NOT INDICATED
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
[2016-07-16] MEDS: DIAZEPAM 10 MG TAB PO PRN ×2 (16:35→23:05)
[2016-07-16] MEDS: SODIUM CHLOR 0.9% 1000 ML INJ 1,000 ML IV SCH (23:08)
[2016-07-17] VITALS (8 sets, daily range): BP systolic 117–130; BP diastolic 60–76; PULSE 83–95; RESP 17–18; TEMP 96.2–97.4; O2SAT 94–98
[2016-07-17] MEDS: AZTREONAM INJ 2,000 MG in SODIUM CHLORIDE 0.9% INJ 100 ML IV SCH ×3 (06:20→23:15)
[2016-07-17] MEDS: INSULIN ASPART SUPPLEMENTAL SCALE SQ SCH ×4 (06:27→20:36)
[2016-07-17 07:30] LABS: AUTOMATED NEUTROPHIL # 6.4 TH/MM3 (1.8-7.7); BASOPHIL # 0.1 TH/MM3 (0-0.2); BASOPHIL % 0.7 % (0.0-2.0); EOSINOPHIL # 0.3 TH/MM3 (0-0.4); EOSINOPHIL % 2.8 % (0.0-4.0); HEMATOCRIT 29.5 % (39.0-51.0); HEMO FLAGS DIFF FINAL; LYMPH % 12.3 % (9.0-44.0); LYMPHOCYTE # 1.2 TH/MM3 (1.0-4.8); MEAN CELL VOLUME 84.6 FL (80.0-100.0); MEAN CORPUSCULAR HEMOGLOBIN 27.5 PG (27.0-34.0); MEAN CORPUSCULAR HGB CONC 32.5 % (32.0-36.0); MONO % 16.9 % (0.0-8.0); NEUT % 67.3 % (16.0-70.0); PLATELET COUNT 426 TH/MM3 (150-450); RED BLOOD COUNT 3.48 MIL/MM3 (4.50-5.90); RED CELL DISTRIBUTION WIDTH 15.8 % (11.6-17.2); WHITE BLOOD COUNT 9.5 TH/MM3 (4.0-11.0)
[2016-07-17 07:57] LABS: POTASSIUM 4.4 MEQ/L (3.5-5.1)
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
[2016-07-17] MEDS: GABAPENTIN 400 MG CAP PO SCH ×2 (09:00→20:19)
[2016-07-17] MEDS: INSULIN DETEMIR 100 UNITS/ML VIAL SQ SCH ×2 (09:00→20:20)
[2016-07-17] MEDS: PANTOPRAZOLE SOD 40 MG DELAYED RELEASE TAB PO SCH (09:00)
[2016-07-17] MEDS: DOCUSATE SODIUM 100 MG CAP PO SCH ×2 (09:00→20:19)
[2016-07-17] MEDS: METOCLOPRAMIDE HCL 10 MG TAB PO SCH ×3 (09:00→16:34)
[2016-07-17] MEDS: HEPARIN SODIUM - SQ 10,000 UNITS/ML VIAL SQ SCH ×2 (09:00→20:20)
[2016-07-17] MEDS: METHADONE HCL 10 MG TAB PO SCH ×4 (09:01→20:19)
[2016-07-17] MEDS: SODIUM CHLOR 0.9% 1000 ML INJ 1,000 ML IV SCH ×2 (09:04→23:18)
[2016-07-17] MEDS ORDERED: PHARMACY ORDERED LAB ONE (11:45)
[2016-07-17] MEDS: VANCOMYCIN INJ 1,500 MG in SODIUM CHLORID 0.9% 500 ML INJ 500 ML IV SCH (12:40)
--- NOTE | 2016-07-17 15:36 | HHI.IDPN ---
Subjective Subjective Remarks Notes reviewed Temps ok resting S/P I and D and bone biopsy prelim C/S with Enterococcus Bone biopsy - path pending ESR 37 CRP 26 WBC down to normal Antibiotics Azactam Vancomycin Lines PIV Past Medical History Diabetes mellitus HTN Hyperlipidemia Chronic pain syndrome Gastroparesis Depression/Anxiety Morbid obesity Peripheral neuropathy PVD PIPPA Previous diabetic foot infections Past Surgical History Right 5th ray amputation in 04/2016 Left BKA in 2004 Right ankle surgery with hardware placement in 1984 Facial reconstructive surgery in 1982 Allergies: Coded Allergies: Enalapril (Verified Allergy, Severe, Rash, 07/14/16) Penicillin (Verified Allergy, Severe, MRSA, 07/14/16) *MDRO Multi-Drug Resistant Organism (Verified Adverse Reaction, Unknown, ) MRSA (wound) - 2002 MRSA PCR Screens NEGATIVE - 12/31/15 & 01/02/2016 CLEARED BY INFECTION CONTROL Objective . Vital Signs Date Time Temp Pulse Resp B/P Pulse Ox O2 Delivery O2 Flow Rate FiO2 07/17/16 12:00 96.6 85 18 128/64 96 07/17/16 08:05 83 07/17/16 08:00 96.2 92 18 128/67 96 07/17/16 07:00 20 07/17/16 04:00 96.7 88 18 121/69 96 07/17/16 00:00 97.4 84 17 117/60 94 07/16/16 21:00 80 07/16/16 20:15 20 07/16/16 20:00 97.2 88 18 132/62 96 07/16/16 16:00 97.0 80 18 128/76 97 07/16/16 07/16/16 07/17/16 15:00 23:00 07:00 Intake Total 960 ml 240 ml 4974 ml Output Total 500 ml 475 ml Balance 460 ml 240 ml 4499 ml Intake Oral 960 ml 240 ml 1200 ml IV Total 3774 ml Output Urine Total 500 ml 475 ml . Laboratory Tests Test 07/16/16 07/17/16 05:46 06:10 White Blood Count 13.9 TH/MM3 9.5 TH/MM3 Red Blood Count 3.55 MIL/MM3 3.48 MIL/MM3 Hemoglobin 10.0 GM/DL 9.6 GM/DL Hematocrit 30.2 % 29.5 % Mean Corpuscular Volume 84.9 FL 84.6 FL Mean Corpuscular Hemoglobin 28.2 PG 27.5 PG Mean Corpuscular Hemoglobin 33.2 % 32.5 % Concent Red Cell Distribution Width 15.7 % 15.8 % Platelet Count 361 TH/MM3 426 TH/MM3 Mean Platelet Volume 9.3 FL 8.7 FL Neutrophils (%) (Auto) 77.9 % 67.3 % Lymphocytes (%) (Auto) 5.2 % 12.3 % Monocytes (%) (Auto) 15.8 % 16.9 % Eosinophils (%) (Auto) 0.6 % 2.8 % Basophils (%) (Auto) 0.5 % 0.7 % Neutrophils # (Auto) 10.8 TH/MM3 6.4 TH/MM3 Lymphocytes # (Auto) 0.7 TH/MM3 1.2 TH/MM3 Monocytes # (Auto) 2.2 TH/MM3 1.6 TH/MM3 Eosinophils # (Auto) 0.1 TH/MM3 0.3 TH/MM3 Basophils # (Auto) 0.1 TH/MM3 0.1 TH/MM3 CBC Comment AUTO DIFF DIFF FINAL Differential Total Cells 100 Counted Neutrophils % (Manual) 73 % Lymphocytes % 10 % Monocytes % 17 % Neutrophils # (Manual) 10.1 TH/MM3 Differential Comment FINAL DIFF MANUAL Platelet Estimate NORMAL Platelet Morphology Comment NORMAL Red Cell Morphology Comment NORMAL Laboratory Tests Test 07/16/16 07/17/16 05:46 06:10 Sodium Level 130 MEQ/L 136 MEQ/L Potassium Level 4.6 MEQ/L 4.4 MEQ/L Chloride Level 99 MEQ/L 104 MEQ/L Carbon Dioxide Level 22.7 MEQ/L 24.0 MEQ/L Anion Gap 8 MEQ/L 8 MEQ/L Blood Urea Nitrogen 55 MG/DL 45 MG/DL Creatinine 1.93 MG/DL 1.23 MG/DL Estimat Glomerular Filtration 38 ML/MIN 63 ML/MIN Rate Random Glucose 264 MG/DL 152 MG/DL Calcium Level 8.6 MG/DL 8.4 MG/DL Magnesium Level 2.3 MG/DL Microbiology Date/Time Procedure Status Source Growth 07/15/16 21:15 Gram Stain - Final Resulted Wound Foot 07/15/16 21:15 Wound Culture - Preliminary Resulted Group D Enterococcus 07/15/16 21:15 Acid Fast Stain - Final Resulted Wound Foot NO ACID FAST BACILLI SEEN 07/15/16 21:15 Mycobacterial Culture Resulted Wound Foot Pending 07/15/16 21:15 Fungal Smear - Final Resulted Wound Foot NO FUNGAL ELEMENTS SEEN. 07/15/16 21:15 Fungal Culture Resulted Wound Foot Pending 07/15/16 21:16 Gram Stain - Final Resulted Wound Foot 07/15/16 21:16 Wound Culture - Preliminary Resulted Group D Enterococcus 07/15/16 21:16 Acid Fast Stain - Final Resulted Wound Foot NO ACID FAST BACILLI SEEN 07/15/16 21:16 Mycobacterial Culture Resulted Wound Foot Pending 07/15/16 21:16 Fungal Smear - Final Resulted Wound Foot NO FUNGAL ELEMENTS SEEN. 07/15/16 21:16 Fungal Culture Resulted Wound Foot Pending Imaging Last Impressions Lower Extremity Ultrasound 07/14/16 0550 Signed Impressions: Service Date/Time: Thursday, July 14, 2016 07:37 - CONCLUSION: Normal examination. Shaun Conner MD Foot MRI 07/14/16 0000 Signed Impressions: Service Date/Time: Thursday, July 14, 2016 11:10 - CONCLUSION: 1. Bodies left myelitis involving the second and third metatarsals as well as the cuneiforms. 2. Multilocular abscess is present as described above predominantly between the second and third metatarsals. Cuong Roldan MD Physical Exam GENERAL: NAD SKIN: Warm and moist. No generalized rash or ecchymosis. HEENT: [place] conjunctivae. No scleral icterus. No injection or drainage. Moist oral mucosa. NECK: Supple, nontender, no meningeal signs. CARDIOVASCULAR: Regular rate and rhythm without murmurs, gallops, or rubs. RESPIRATORY: Clear to auscultation. Breath sounds equal bilaterally. No wheezes , rales, or rhonchi. Decreased breath sounds at the bases. GASTROINTESTINAL: Abdomen soft, obese, non-tender, nondistended. . No guarding. MUSCULOSKELETAL: He is status post left BKA in the left lower extremity, with a well-healed stump. RLE very edematous, has dressing in place. No calf tenderness. Negative Homans sign bilaterally. NEUROLOGICAL: Non-focal PSYCH: Normal affect, calm and cooperative LINE: PIV with no evidence of infection Assessment & Plan Remarks IMPRESSION Sepsis on adm due to infection R foot DFI R foot with abscess and oste 2nd and 3rd MT Previous amp R 5th toe and ray resection April 2016 Hx previous DFI S/P L BKA Obesity Renal insufficiency, worsened by sepsis Allergies to penicillin, but tolerates cephalosporins RECOMMENDATION Continue Vanco Continue Azactam - if no GNR on C/S, D/C Follow culture Monitor temps Monitor progress Await biopsy result Will determine course of Rx once biopsy results and C/S finalized, and also if there are any other surgical intervention that will be done Brenda Watson MD Jul 17, 2016 15:36
--- NOTE | 2016-07-17 19:31 | MP ---
cc: CATY ORONA DATE OF SURGERY: 07/15/2016. PREOPERATIVE DIAGNOSIS: 1. Right foot multiple abscesses. 2. Right foot suspected osteomyelitis. POSTOPERATIVE DIAGNOSIS: OPERATION: 1. Incision and drainage x3. 2. Second metatarsal bone biopsy SURGEON: Caty Orona DPM. PERIANESTHESIA NURSE: None. PATHOLOGY SENT: Soft tissue culture sent for microbiology. Bone biopsy of second metatarsal sent for microbiology. Bone biopsy of second metatarsal sent for pathology. ESTIMATED BLOOD LOSS: Less than 20 mL. MATERIALS USED: 3-0 Prolene. 1/4 inch packing. COMPLICATIONS: None. INDICATIONS FOR THE PROCEDURE: Mr. Randhawa is a 45-year-old patient well-known to my partner, Dr. Jay, with a history of foot ulcerations who presented to the hospital with severe edema and erythema. DVT was ruled out but an MRI did show multiple small abscesses throughout foot. Decision was made to take him to the operating room for an incision and drainage. The consent was signed. The procedure was explained. No guarantees were given. DESCRIPTION OF THE PROCEDURE IN DETAIL: Under mild sedation, the patient was brought to the operating room and placed on the operating table in supine position following IV sedation the foot was scrubbed, prepped and draped in the usual aseptic manner. Attention was directed to the dorsal aspect of the second metatarsal space and a 1-1/2 inch linear longitudinal incision was created and deepened through skin and subcutaneous tissue with care being taken to identify and retract any vital neurovascular structures. Blunt dissection was deepened to the level of the plantar tissues with a hemostat and there was a small amount of thick purulent fluid noted which was cultured. There was some thick liquefied type fat indicative of a chronic abscess untreated as well. Once the area was sufficiently manipulated and free of purulent drainage, attention was then directed to a small wound on the lateral aspect of the foot measuring approximately 0.5 x 0.5. A hemostat was used to probe any channels and purulent drainage was noted. An incision was made over that area measuring approximately 1 inch similar to the fashion of the dorsal incision and once all the purulent drainage had been manually excised, attention was then directed to an area of skin compromise on the medial aspect of the foot where a linear incision was created and deep purulent drainage was manually excised. Again all wounds were again focused on. A manual squeeze was performed as well as blunt probe with a hemostat and deemed that all purulent material had been removed. Pulse lavage was then used and 3000 mL of sterile saline were expelled through all three incision sites. Using only clean instrumentation, a Jamshidi needle was then used to remove a small piece of bone from the base of the second metatarsal part of which was sent to microbiology and part of which was sent to pathology for further evaluation. All three incision sites were partially closed and partially packed. Adaptic, sterile abdominal pads, cast padding and light EVAN wrap were then applied. The patient tolerated the procedure and the anesthesia well and will recover in the post-anesthesia care unit for a period of time before being discharged home with written and oral postoperative instructions. Caty GALDAMEZ/WENCESLAO /9:54 PM /7:21 PM MTDRose
[2016-07-17] MEDS: DIAZEPAM 10 MG TAB PO PRN (20:32)
[2016-07-17] MEDS: LACTULOSE SYRUP 20 GM/30 ML CUP PO PRN (21:35)
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
[2016-07-18] VITALS (8 sets, daily range): BP systolic 121–152; BP diastolic 62–70; PULSE 81–100; RESP 17–20; TEMP 96.5–99.2; O2SAT 95–98
[2016-07-18] MEDS: AZTREONAM INJ 2,000 MG in SODIUM CHLORIDE 0.9% INJ 100 ML IV SCH ×3 (06:30→22:38)
[2016-07-18] MEDS: DIAZEPAM 10 MG TAB PO PRN (06:33)
[2016-07-18] MEDS: INSULIN ASPART SUPPLEMENTAL SCALE SQ SCH ×4 (06:36→21:14)
[2016-07-18 08:33] LABS: BICARBONATE 25.6 MEQ/L (21.0-32.0); POTASSIUM 4.5 MEQ/L (3.5-5.1)
[2016-07-18] MEDS ORDERED: INSULIN DETEMIR 100 UNITS/ML VIAL SQ SCH (09:00)
[2016-07-18] MEDS: GABAPENTIN 400 MG CAP PO SCH ×2 (09:17→19:45)
[2016-07-18] MEDS: METHADONE HCL 10 MG TAB PO SCH ×4 (09:17→21:08)
[2016-07-18] MEDS: METOCLOPRAMIDE HCL 10 MG TAB PO SCH ×3 (09:17→16:32)
[2016-07-18] MEDS: DOCUSATE SODIUM 100 MG CAP PO SCH ×2 (09:17→19:45)
[2016-07-18] MEDS: HEPARIN SODIUM - SQ 10,000 UNITS/ML VIAL SQ SCH ×2 (09:18→19:52)
[2016-07-18] MEDS: PANTOPRAZOLE SOD 40 MG DELAYED RELEASE TAB PO SCH (09:18)
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
[2016-07-18] MEDS: VANCOMYCIN INJ 1,500 MG in SODIUM CHLORID 0.9% 500 ML INJ 500 ML IV SCH (11:55)
[2016-07-18] MEDS ORDERED: FUROSEMIDE 40 MG/4 ML VIAL IV PUSH ONE (19:45)
[2016-07-18] MEDS: INSULIN DETEMIR 100 UNITS/ML VIAL SQ SCH (21:14)
[2016-07-19] VITALS (8 sets, daily range): BP systolic 111–133; BP diastolic 57–71; PULSE 85–92; RESP 17–20; TEMP 97.5–98.7; O2SAT 93–96
[2016-07-19] MEDS: AZTREONAM INJ 2,000 MG in SODIUM CHLORIDE 0.9% INJ 100 ML IV SCH ×3 (06:29→23:08)
[2016-07-19] MEDS: INSULIN ASPART SUPPLEMENTAL SCALE SQ SCH ×4 (06:48→21:31)
[2016-07-19] MEDS: GABAPENTIN 400 MG CAP PO SCH ×2 (08:50→21:31)
[2016-07-19] MEDS: HEPARIN SODIUM - SQ 10,000 UNITS/ML VIAL SQ SCH ×2 (08:50→21:31)
[2016-07-19] MEDS: DOCUSATE SODIUM 100 MG CAP PO SCH ×2 (08:50→21:31)
[2016-07-19] MEDS: METOCLOPRAMIDE HCL 10 MG TAB PO SCH ×3 (08:50→15:19)
[2016-07-19] MEDS: PANTOPRAZOLE SOD 40 MG DELAYED RELEASE TAB PO SCH (08:50)
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
[2016-07-19] MEDS: INSULIN DETEMIR 100 UNITS/ML VIAL SQ SCH ×2 (08:51→21:31)
[2016-07-19] MEDS: METHADONE HCL 10 MG TAB PO SCH ×4 (08:51→21:30)
[2016-07-19] MEDS: FUROSEMIDE 40 MG TAB PO SCH ×2 (09:22→18:00)
[2016-07-19 10:47] LABS: BICARBONATE 26.6 MEQ/L (21.0-32.0); MAGNESIUM 1.6 MG/DL (1.5-2.5); POTASSIUM 4.3 MEQ/L (3.5-5.1)
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
[2016-07-19] MEDS ORDERED: PHARMACY ORDERED LAB ONE (11:45)
[2016-07-19] MEDS: VANCOMYCIN INJ 1,500 MG in SODIUM CHLORID 0.9% 500 ML INJ 500 ML IV SCH (11:55)
[2016-07-19] MEDS ORDERED: SODIUM CHLORIDE 0.9% FLUSH 10 ML FLUSH IV FLUSH PRN (13:15)
--- NOTE | 2016-07-19 13:39 | RADRPT ---
EXAM DATE/TIME: 07/19/2016 12:59 [facility] COMPARISON: CHEST SINGLE AP, December 17, 2015, 18:08. INDICATIONS : PICC line placement. MEDICAL HISTORY : None. SURGICAL HISTORY : None. ENCOUNTER: Initial ACUITY: 1 day PAIN SCORE: 0/10 LOCATION: Bilateral chest FINDINGS: There has been interval placement of a right-sided PICC line with the tip overlying the distal SVC. T he heart size appears mildly enlarged which may be secondary to portable technique. The pulmonary vas culature is mildly prominent without clear evidence of cephalization. The lungs are clear. CONCLUSION: Appropriately positioned right-sided PICC line. The radiographic findings of the chest may be seconda ry to portable technique. Amanda Abraham MD on July 19, 2016 at 13:36 Board Certified Radiologist. This report was verified electronically.
[2016-07-20] VITALS (7 sets, daily range): BP systolic 120–131; BP diastolic 60–79; PULSE 80–88; RESP 14–19; TEMP 97–98.7; O2SAT 95–97
[2016-07-20] MEDS: METOCLOPRAMIDE HCL 10 MG TAB PO SCH ×3 (06:19→17:00)
[2016-07-20] MEDS: INSULIN ASPART SUPPLEMENTAL SCALE SQ SCH ×4 (06:19→21:55)
[2016-07-20] MEDS: AZTREONAM INJ 2,000 MG in SODIUM CHLORIDE 0.9% INJ 100 ML IV SCH (06:49)
[2016-07-20 07:17] LABS: BICARBONATE 27.8 MEQ/L (21.0-32.0)
[2016-07-20 07:19] LABS: POTASSIUM 5.5 MEQ/L (3.5-5.1)
[2016-07-20] MEDS: HEPARIN SODIUM - SQ 10,000 UNITS/ML VIAL SQ SCH ×2 (09:00→21:00)
[2016-07-20] MEDS: INSULIN DETEMIR 100 UNITS/ML VIAL SQ SCH ×2 (09:00→21:54)
[2016-07-20] MEDS: FUROSEMIDE 40 MG TAB PO SCH ×3 (09:00→17:49)
[2016-07-20] MEDS: METHADONE HCL 10 MG TAB PO SCH ×4 (09:00→21:53)
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
[2016-07-20] MEDS ORDERED: VANCOMYCIN INJ 2,000 MG in SODIUM CHLORID 0.9% 500 ML INJ 500 ML IV SCH (12:00)
[2016-07-20] MEDS: HYDROmorphone HCL PF 1 MG/ML VIAL IV PUSH PRN (13:59)
--- NOTE | 2016-07-20 14:08 | HHI.IDPN ---
Subjective Subjective Remarks Notes reviewed Temps ok C/O pain R foot To OR again this afternoon Biopsy C/W acute osteo C/S Enterococcus ESR 37 CRP 26 No diarrhea No rash or itching Antibiotics Azactam Vancomycin Lines PIV Past Medical History Diabetes mellitus HTN Hyperlipidemia Chronic pain syndrome Gastroparesis Depression/Anxiety Morbid obesity Peripheral neuropathy PVD PIPPA Previous diabetic foot infections Past Surgical History Right 5th ray amputation in 04/2016 Left BKA in 2004 Right ankle surgery with hardware placement in 1984 Facial reconstructive surgery in 1982 Allergies: Coded Allergies: Enalapril (Verified Allergy, Severe, Rash, 07/14/16) Penicillin (Verified Allergy, Severe, MRSA, 07/14/16) *MDRO Multi-Drug Resistant Organism (Verified Adverse Reaction, Unknown, ) MRSA (wound) - 2002 MRSA PCR Screens NEGATIVE - 12/31/15 & 01/02/2016 CLEARED BY INFECTION CONTROL Objective . Vital Signs Date Time Temp Pulse Resp B/P Pulse Ox O2 Delivery O2 Flow Rate FiO2 07/20/16 12:00 97.6 80 18 125/60 95 07/20/16 08:00 97.3 84 14 127/65 97 07/20/16 04:00 98.3 85 19 131/63 95 07/20/16 00:00 98.7 88 19 128/62 97 07/19/16 20:29 87 07/19/16 20:00 98.6 91 17 133/60 96 07/19/16 15:50 98.6 90 20 131/62 94 07/19/16 07/19/16 07/20/16 15:00 23:00 07:00 Intake Total 610 ml 480 ml 120 ml Output Total 1150 ml 1600 ml 600 ml Balance -540 ml -1120 ml -480 ml Intake Oral 360 ml 480 ml 0 ml IV Total 250 ml 120 ml Output Urine Total 1150 ml 1600 ml 600 ml # Bowel Movements 0 0 0 . Laboratory Tests Test 07/19/16 07/20/16 08:50 05:40 Sodium Level 141 MEQ/L 141 MEQ/L Potassium Level 4.3 MEQ/L 5.5 MEQ/L Chloride Level 107 MEQ/L 106 MEQ/L Carbon Dioxide Level 26.6 MEQ/L 27.8 MEQ/L Anion Gap 7 MEQ/L 7 MEQ/L Blood Urea Nitrogen 21 MG/DL 17 MG/DL Creatinine 0.88 MG/DL 0.80 MG/DL Estimat Glomerular Filtration 93 ML/MIN 104 ML/MIN Rate Random Glucose 127 MG/DL 167 MG/DL Calcium Level 8.6 MG/DL 8.6 MG/DL Magnesium Level 1.6 MG/DL Imaging Last Impressions Lower Extremity Ultrasound 07/14/16 0550 Signed Impressions: Service Date/Time: Thursday, July 14, 2016 07:37 - CONCLUSION: Normal examination. Shaun Conner MD Foot MRI 07/14/16 0000 Signed Impressions: Service Date/Time: Thursday, July 14, 2016 11:10 - CONCLUSION: 1. Bodies left myelitis involving the second and third metatarsals as well as the cuneiforms. 2. Multilocular abscess is present as described above predominantly between the second and third metatarsals. uCong Roldan MD Physical Exam GENERAL: NAD SKIN: Warm and moist. No generalized rash or ecchymosis. HEENT: Eek conjunctivae. No scleral icterus. No injection or drainage. Moist oral mucosa. NECK: Supple, nontender, no meningeal signs. CARDIOVASCULAR: Regular rate and rhythm without murmurs, gallops, or rubs. RESPIRATORY: Clear to auscultation. Breath sounds equal bilaterally. No wheezes , rales, or rhonchi. Decreased breath sounds at the bases. GASTROINTESTINAL: Abdomen soft, obese, non-tender, nondistended. . No guarding. MUSCULOSKELETAL: He is status post left BKA in the left lower extremity, with a well-healed stump. RLE very edematous, has dry dressing in place. No calf tenderness. NEUROLOGICAL: Non-focal PSYCH: Normal affect, calm and cooperative LINE: PIV with no evidence of infection Assessment & Plan Remarks IMPRESSION Sepsis on adm due to infection R foot DFI R foot with abscess and oste 2nd and 3rd MT Previous amp R 5th toe and ray resection MT April 2016 Hx previous DFI S/P L BKA Obesity Renal insufficiency, worsened by sepsis Allergies to penicillin, but tolerates cephalosporins RECOMMENDATION Continue Vanco Stop Azactam OR again today Follow culture Monitor temps Monitor progress Final ID after this surgical intervention done; if no further amputation, 6 weeks IV Abx D/W Dr Zacarias Explained plan to patient D/W Brenda Kyle MD Jul 20, 2016 14:07
[2016-07-20] MEDS: PANTOPRAZOLE SOD 40 MG DELAYED RELEASE TAB PO SCH (15:26)
[2016-07-20] MEDS: DOCUSATE SODIUM 100 MG CAP PO SCH ×2 (15:27→21:53)
[2016-07-20] MEDS: GABAPENTIN 400 MG CAP PO SCH ×2 (15:27→21:53)
[2016-07-20] MEDS: SODIUM CHLORIDE 0.9% FLUSH 10 ML FLUSH IV FLUSH SCH (15:28)
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
[2016-07-21] VITALS: BP 110/58; PULSE 85; RESP 18; TEMP 97.6; O2SAT 95
[2016-07-21 04:00] VITALS: BP 127/72; PULSE 89; RESP 18; TEMP 98.2; O2SAT 95
[2016-07-21 05:41] LABS: BASOPHIL # 0.1 TH/MM3 (0-0.2); BASOPHIL % 0.8 % (0.0-2.0); EOSINOPHIL # 0.2 TH/MM3 (0-0.4); EOSINOPHIL % 2.2 % (0.0-4.0); HEMATOCRIT 32.2 % (39.0-51.0); HEMO FLAGS DIFF FINAL; LYMPH % 16.2 % (9.0-44.0); LYMPHOCYTE # 1.7 TH/MM3 (1.0-4.8); MEAN CORPUSCULAR HEMOGLOBIN 27.5 PG (27.0-34.0); MEAN CORPUSCULAR HGB CONC 32.3 % (32.0-36.0); MONO % 14.1 % (0.0-8.0); NEUT % 66.7 % (16.0-70.0); PLATELET COUNT 561 TH/MM3 (150-450); RED BLOOD COUNT 3.79 MIL/MM3 (4.50-5.90); RED CELL DISTRIBUTION WIDTH 15.6 % (11.6-17.2); WHITE BLOOD COUNT 10.5 TH/MM3 (4.0-11.0)
[2016-07-21] MEDS: INSULIN ASPART SUPPLEMENTAL SCALE SQ SCH ×4 (05:47→20:59)
[2016-07-21 06:08] LABS: BICARBONATE 32.9 MEQ/L (21.0-32.0); MAGNESIUM 1.5 MG/DL (1.5-2.5); POTASSIUM 3.9 MEQ/L (3.5-5.1)
[2016-07-21] MEDS: METOCLOPRAMIDE HCL 10 MG TAB PO SCH ×3 (07:56→17:00)
[2016-07-21] MEDS: DOCUSATE SODIUM 100 MG CAP PO SCH ×2 (07:56→20:48)
[2016-07-21] MEDS: GABAPENTIN 400 MG CAP PO SCH ×3 (07:56→20:48)
[2016-07-21] MEDS: PANTOPRAZOLE SOD 40 MG DELAYED RELEASE TAB PO SCH (07:56)
[2016-07-21] MEDS: INSULIN DETEMIR 100 UNITS/ML VIAL SQ SCH ×2 (07:57→20:59)
[2016-07-21] MEDS: FUROSEMIDE 40 MG TAB PO SCH ×2 (07:57→16:59)
[2016-07-21 08:00] VITALS: BP 123/54; PULSE 72; RESP 18; TEMP 97.5; O2SAT 98
[2016-07-21] MEDS: METHADONE HCL 10 MG TAB PO SCH ×4 (08:05→20:48)
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
--- NOTE | 2016-07-21 10:21 | HHI.IDPN ---
Subjective Subjective Remarks Notes reviewed Scheduled for surgery today Podiatry notes reviewed No further amputation planned Will have more debridement Temps ok C/O pain R foot Biopsy C/W acute osteo C/S Enterococcus ESR 37 CRP 26 No diarrhea No rash or itching Antibiotics Vancomycin Lines PICC Past Medical History Diabetes mellitus HTN Hyperlipidemia Chronic pain syndrome Gastroparesis Depression/Anxiety Morbid obesity Peripheral neuropathy PVD PIPPA Previous diabetic foot infections Past Surgical History Right 5th ray amputation in 04/2016 Left BKA in 2004 Right ankle surgery with hardware placement in 1984 Facial reconstructive surgery in 1982 Allergies: Coded Allergies: Enalapril (Verified Allergy, Severe, Rash, 07/14/16) Penicillin (Verified Allergy, Severe, MRSA, 07/14/16) *MDRO Multi-Drug Resistant Organism (Verified Adverse Reaction, Unknown, ) MRSA (wound) - 2002 MRSA PCR Screens NEGATIVE - 12/31/15 & 01/02/2016 CLEARED BY INFECTION CONTROL Objective . Vital Signs Date Time Temp Pulse Resp B/P Pulse Ox O2 Delivery O2 Flow Rate FiO2 07/21/16 08:00 97.5 72 18 123/54 98 07/21/16 04:00 98.2 89 18 127/72 95 07/21/16 00:00 97.6 85 18 110/58 95 07/20/16 20:00 98.1 84 18 127/79 96 07/20/16 16:00 97.0 81 18 120/67 96 07/20/16 12:00 97.6 80 18 125/60 95 07/20/16 07/20/16 07/21/16 14:59 22:59 06:59 Intake Total 0 ml 480 ml 240 ml Output Total 900 ml 1775 ml 1300 ml Balance -900 ml -1295 ml -1060 ml Intake Oral 0 ml 480 ml 240 ml Output Urine Total 900 ml 1775 ml 1300 ml # Bowel Movements 0 . Laboratory Tests Test 07/21/16 04:50 White Blood Count 10.5 TH/MM3 Red Blood Count 3.79 MIL/MM3 Hemoglobin 10.4 GM/DL Hematocrit 32.2 % Mean Corpuscular Volume 85.0 FL Mean Corpuscular Hemoglobin 27.5 PG Mean Corpuscular Hemoglobin 32.3 % Concent Red Cell Distribution Width 15.6 % Platelet Count 561 TH/MM3 Mean Platelet Volume 8.0 FL Neutrophils (%) (Auto) 66.7 % Lymphocytes (%) (Auto) 16.2 % Monocytes (%) (Auto) 14.1 % Eosinophils (%) (Auto) 2.2 % Basophils (%) (Auto) 0.8 % Neutrophils # (Auto) 7.0 TH/MM3 Lymphocytes # (Auto) 1.7 TH/MM3 Monocytes # (Auto) 1.5 TH/MM3 Eosinophils # (Auto) 0.2 TH/MM3 Basophils # (Auto) 0.1 TH/MM3 CBC Comment DIFF FINAL Differential Comment Laboratory Tests Test 07/20/16 07/21/16 05:40 04:50 Sodium Level 141 MEQ/L 142 MEQ/L Potassium Level 5.5 MEQ/L 3.9 MEQ/L Chloride Level 106 MEQ/L 102 MEQ/L Carbon Dioxide Level 27.8 MEQ/L 32.9 MEQ/L Anion Gap 7 MEQ/L 7 MEQ/L Blood Urea Nitrogen 17 MG/DL 14 MG/DL Creatinine 0.80 MG/DL 0.84 MG/DL Estimat Glomerular Filtration 104 ML/MIN 98 ML/MIN Rate Random Glucose 167 MG/DL 118 MG/DL Calcium Level 8.6 MG/DL 8.7 MG/DL Magnesium Level 1.5 MG/DL Imaging Last Impressions Lower Extremity Ultrasound 07/14/16 0550 Signed Impressions: Service Date/Time: Thursday, July 14, 2016 07:37 - CONCLUSION: Normal examination. Shaun Conner MD Foot MRI 07/14/16 0000 Signed Impressions: Service Date/Time: Thursday, July 14, 2016 11:10 - CONCLUSION: 1. Bodies left myelitis involving the second and third metatarsals as well as the cuneiforms. 2. Multilocular abscess is present as described above predominantly between the second and third metatarsals. Cuong Roldan MD Physical Exam GENERAL: NAD SKIN: Warm and moist. No generalized rash HEENT: [place] conjunctivae. No scleral icterus. Moist oral mucosa. NECK: Supple, nontender, no meningeal signs. CARDIOVASCULAR: Regular rate and rhythm without murmurs, gallops, or rubs. RESPIRATORY: Clear to auscultation. Breath sounds equal bilaterally. No wheezes , rales, or rhonchi. Decreased breath sounds at the bases. GASTROINTESTINAL: Abdomen soft, obese, non-tender, nondistended. . No guarding. MUSCULOSKELETAL: He is status post left BKA in the left lower extremity, with a well-healed stump. RLE very edematous, has dry dressing in place. No calf tenderness. NEUROLOGICAL: Non-focal PSYCH: Normal affect, calm and cooperative LINE: PIV with no evidence of infection Assessment & Plan Remarks IMPRESSION Sepsis on adm due to infection R foot DFI R foot with abscess and oste 2nd and 3rd MT Previous amp R 5th toe and ray resection MT April 2016 Hx previous DFI S/P L BKA Obesity Renal insufficiency, worsened by sepsis Allergies to penicillin, but tolerates cephalosporins RECOMMENDATION Continue Vanco - spoke with pharm - will make dosing q12H since trough only 9 OR again today Follow culture Monitor temps Monitor progress D/W Dr Zacarias Explained plan to patient D/W Brenda Kyle MD Jul 21, 2016 10:21
[2016-07-21 12:00] VITALS: BP 147/75; PULSE 82; RESP 18; TEMP 98; O2SAT 95
[2016-07-21] MEDS: HEPARIN SODIUM - SQ 10,000 UNITS/ML VIAL SQ SCH ×2 (12:28→20:48)
[2016-07-21] MEDS: VANCOMYCIN INJ 1,500 MG in SODIUM CHLORID 0.9% 500 ML INJ 500 ML IV SCH (12:29)
[2016-07-21] MEDS: SODIUM CHLORIDE 0.9% FLUSH 10 ML FLUSH IV FLUSH SCH (12:35)
[2016-07-21 16:00] VITALS: BP 113/72; PULSE 80; RESP 18; TEMP 96.7; O2SAT 95
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
[2016-07-21 20:00] VITALS: BP 128/63; PULSE 86; RESP 16; TEMP 98.1; O2SAT 93
[2016-07-21] MEDS: HYDROmorphone HCL PF 1 MG/ML VIAL IV PUSH PRN (20:47)
[2016-07-22] VITALS: BP 116/58; PULSE 86; RESP 18; TEMP 98.4; O2SAT 93
[2016-07-22] MEDS: VANCOMYCIN INJ 1,500 MG in SODIUM CHLORID 0.9% 500 ML INJ 500 ML IV SCH ×3 (00:04→22:30)
[2016-07-22] MEDS: ONDANSETRON HCL 4 MG/2 ML VIAL IV PRN ×2 (03:56→17:36)
[2016-07-22 04:20] VITALS: BP 163/76; PULSE 88; RESP 16; TEMP 98.9; O2SAT 92
[2016-07-22] MEDS: INSULIN ASPART SUPPLEMENTAL SCALE SQ SCH ×4 (06:03→22:28)
[2016-07-22 08:00] VITALS: BP 129/66; PULSE 83; RESP 18; TEMP 98; O2SAT 94
[2016-07-22] MEDS: INSULIN DETEMIR 100 UNITS/ML VIAL SQ SCH ×2 (09:00→22:27)
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
[2016-07-22] MEDS: SODIUM CHLORIDE 0.9% FLUSH 10 ML FLUSH IV FLUSH SCH (09:45)
[2016-07-22] MEDS: GABAPENTIN 400 MG CAP PO SCH ×2 (09:53→22:29)
[2016-07-22] MEDS: PANTOPRAZOLE SOD 40 MG DELAYED RELEASE TAB PO SCH (09:53)
[2016-07-22] MEDS: HEPARIN SODIUM - SQ 10,000 UNITS/ML VIAL SQ SCH ×2 (09:53→22:28)
[2016-07-22] MEDS: DOCUSATE SODIUM 100 MG CAP PO SCH ×2 (09:54→22:28)
[2016-07-22] MEDS: METOCLOPRAMIDE HCL 10 MG TAB PO SCH ×3 (09:54→17:29)
[2016-07-22] MEDS: METHADONE HCL 10 MG TAB PO SCH ×4 (09:54→22:29)
[2016-07-22] MEDS: FUROSEMIDE 40 MG TAB PO SCH ×2 (09:54→17:30)
[2016-07-22] MEDS ORDERED: PHARMACY ORDERED LAB ONE (10:45)
[2016-07-22 12:00] VITALS: BP 133/70; PULSE 79; RESP 18; TEMP 98; O2SAT 96
[2016-07-22 16:00] VITALS: BP 127/72; PULSE 86; RESP 18; TEMP 98.2; O2SAT 96
[2016-07-22 21:22] VITALS: BP 114/66; PULSE 82; RESP 16; TEMP 98; O2SAT 93
[2016-07-23 00:07] VITALS: BP 145/70; PULSE 84; RESP 16; TEMP 98.8; O2SAT 94
[2016-07-23 04:03] VITALS: BP 141/67; PULSE 86; RESP 16; TEMP 98.6; O2SAT 96
[2016-07-23] MEDS: DIAZEPAM 10 MG TAB PO PRN ×2 (04:07→16:14)
[2016-07-23] MEDS: INSULIN ASPART SUPPLEMENTAL SCALE SQ SCH ×4 (04:18→22:00)
[2016-07-23 06:11] LABS: AUTOMATED NEUTROPHIL # 7.3 TH/MM3 (1.8-7.7); BASOPHIL # 0.1 TH/MM3 (0-0.2); BASOPHIL % 0.6 % (0.0-2.0); EOSINOPHIL # 0.2 TH/MM3 (0-0.4); EOSINOPHIL % 1.6 % (0.0-4.0); HEMATOCRIT 31.4 % (39.0-51.0); HEMO FLAGS DIFF FINAL; LYMPH % 17.7 % (9.0-44.0); LYMPHOCYTE # 1.9 TH/MM3 (1.0-4.8); MEAN CELL VOLUME 84.7 FL (80.0-100.0); MEAN CORPUSCULAR HEMOGLOBIN 28.7 PG (27.0-34.0); MEAN CORPUSCULAR HGB CONC 33.9 % (32.0-36.0); MONO % 12.1 % (0.0-8.0); PLATELET COUNT 508 TH/MM3 (150-450); RED BLOOD COUNT 3.71 MIL/MM3 (4.50-5.90); RED CELL DISTRIBUTION WIDTH 15.5 % (11.6-17.2); WHITE BLOOD COUNT 10.7 TH/MM3 (4.0-11.0)
[2016-07-23 06:40] LABS: BICARBONATE 36.1 MEQ/L (21.0-32.0); MAGNESIUM 1.6 MG/DL (1.5-2.5); POTASSIUM 3.8 MEQ/L (3.5-5.1)
[2016-07-23 08:00] VITALS: BP 140/70; PULSE 80; RESP 18; TEMP 97.4; O2SAT 95
[2016-07-23] MEDS: DOCUSATE SODIUM 100 MG CAP PO SCH ×2 (09:49→21:54)
[2016-07-23] MEDS: METOCLOPRAMIDE HCL 10 MG TAB PO SCH ×3 (09:49→18:20)
[2016-07-23] MEDS: FUROSEMIDE 40 MG TAB PO SCH ×2 (09:50→18:21)
[2016-07-23] MEDS: PANTOPRAZOLE SOD 40 MG DELAYED RELEASE TAB PO SCH (09:50)
[2016-07-23] MEDS: HEPARIN SODIUM - SQ 10,000 UNITS/ML VIAL SQ SCH ×2 (09:50→21:55)
[2016-07-23] MEDS: GABAPENTIN 400 MG CAP PO SCH ×2 (09:50→21:55)
[2016-07-23] MEDS: METHADONE HCL 10 MG TAB PO SCH ×4 (09:50→22:01)
[2016-07-23] MEDS: INSULIN DETEMIR 100 UNITS/ML VIAL SQ SCH ×2 (09:51→21:55)
[2016-07-23] MEDS ORDERED: PHARMACY ORDERED LAB ONE (10:45)
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
[2016-07-23 12:00] VITALS: BP 122/58; PULSE 82; RESP 18; TEMP 97.6; O2SAT 94
[2016-07-23] MEDS: SODIUM CHLORIDE 0.9% FLUSH 10 ML FLUSH IV FLUSH SCH (12:24)
[2016-07-23 16:00] VITALS: BP 145/79; PULSE 80; RESP 18; TEMP 98.6; O2SAT 96
[2016-07-23] MEDS: VANCOMYCIN INJ 1,250 MG in SODIUM CHLOR 0.9% 250 ML INJ 250 ML IV SCH (16:14)
[2016-07-23 20:00] VITALS: BP 126/61; PULSE 86; RESP 16; TEMP 98.9; O2SAT 94
[2016-07-24 00:08] VITALS: BP 149/69; PULSE 88; RESP 16; TEMP 98.7; O2SAT 92
[2016-07-24] MEDS: VANCOMYCIN INJ 1,250 MG in SODIUM CHLOR 0.9% 250 ML INJ 250 ML IV SCH (01:17)
[2016-07-24] MEDS: HYDROmorphone HCL PF 1 MG/ML VIAL IV PUSH PRN (02:00)
[2016-07-24] MEDS: INSULIN ASPART SUPPLEMENTAL SCALE SQ SCH ×4 (03:37→21:55)
[2016-07-24 04:17] VITALS: BP 144/71; PULSE 77; RESP 16; TEMP 97.7; O2SAT 92
[2016-07-24 08:00] VITALS: BP 138/61; PULSE 80; RESP 16; TEMP 97.6; O2SAT 94
--- NOTE | 2016-07-24 09:22 | HHI.IDPN ---
Subjective Subjective Remarks Notes reviewed No fever No new complaint Patient states he had wash out of his R foot yesterday Asked him about his PCN allergy - states he did not any reaction but was told by him MD not to have it because he had MRSA Biopsy C/W acute osteo C/S Enterococcus ESR 37 CRP 26 No diarrhea No rash or itching Antibiotics Vancomycin Lines PICC Past Medical History Diabetes mellitus HTN Hyperlipidemia Chronic pain syndrome Gastroparesis Depression/Anxiety Morbid obesity Peripheral neuropathy PVD PIPPA Previous diabetic foot infections Past Surgical History Right 5th ray amputation in 04/2016 Left BKA in 2004 Right ankle surgery with hardware placement in 1984 Facial reconstructive surgery in 1982 Allergies: Coded Allergies: Enalapril (Verified Allergy, Severe, Rash, 07/14/16) *MDRO Multi-Drug Resistant Organism (Verified Adverse Reaction, Unknown, ) MRSA (wound) - 2002 MRSA PCR Screens NEGATIVE - 12/31/15 & 01/02/2016 CLEARED BY INFECTION CONTROL Objective . Vital Signs Date Time Temp Pulse Resp B/P Pulse Ox O2 Delivery O2 Flow Rate FiO2 07/24/16 04:17 97.7 77 16 144/71 92 07/24/16 02:27 16 07/24/16 02:27 16 07/24/16 00:08 98.7 88 16 149/69 92 07/23/16 23:51 18 07/23/16 20:00 98.9 86 16 126/61 94 07/23/16 16:00 98.6 80 18 145/79 96 07/23/16 12:00 97.6 82 18 122/58 94 07/23/16 07/23/16 07/24/16 15:00 23:00 07:00 Intake Total 1080 ml 360 ml 450 ml Output Total 1500 ml 800 ml 1800 ml Balance -420 ml -440 ml -1350 ml Intake Oral 1080 ml 360 ml 450 ml Output Urine Total 1500 ml 800 ml 1800 ml # Bowel Movements 0 0 . Laboratory Tests Test 07/23/16 04:15 White Blood Count 10.7 TH/MM3 Red Blood Count 3.71 MIL/MM3 Hemoglobin 10.6 GM/DL Hematocrit 31.4 % Mean Corpuscular Volume 84.7 FL Mean Corpuscular Hemoglobin 28.7 PG Mean Corpuscular Hemoglobin 33.9 % Concent Red Cell Distribution Width 15.5 % Platelet Count 508 TH/MM3 Mean Platelet Volume 8.0 FL Neutrophils (%) (Auto) 68.0 % Lymphocytes (%) (Auto) 17.7 % Monocytes (%) (Auto) 12.1 % Eosinophils (%) (Auto) 1.6 % Basophils (%) (Auto) 0.6 % Neutrophils # (Auto) 7.3 TH/MM3 Lymphocytes # (Auto) 1.9 TH/MM3 Monocytes # (Auto) 1.3 TH/MM3 Eosinophils # (Auto) 0.2 TH/MM3 Basophils # (Auto) 0.1 TH/MM3 CBC Comment DIFF FINAL Differential Comment Laboratory Tests Test 07/23/16 07/24/16 04:15 03:35 Sodium Level 140 MEQ/L Potassium Level 3.8 MEQ/L Chloride Level 99 MEQ/L Carbon Dioxide Level 36.1 MEQ/L Anion Gap 5 MEQ/L Blood Urea Nitrogen 14 MG/DL Creatinine 1.07 MG/DL 1.07 MG/DL Estimat Glomerular Filtration 74 ML/MIN 74 ML/MIN Rate Random Glucose 168 MG/DL Calcium Level 8.6 MG/DL Magnesium Level 1.6 MG/DL Imaging Last Impressions Lower Extremity Ultrasound 07/14/16 0550 Signed Impressions: Service Date/Time: Thursday, July 14, 2016 07:37 - CONCLUSION: Normal examination. Shaun Conner MD Foot MRI 07/14/16 0000 Signed Impressions: Service Date/Time: Thursday, July 14, 2016 11:10 - CONCLUSION: 1. Bodies left myelitis involving the second and third metatarsals as well as the cuneiforms. 2. Multilocular abscess is present as described above predominantly between the second and third metatarsals. Cuong Roldan MD Physical Exam GENERAL: NAD SKIN: Warm and moist. No generalized rash HEENT: [place] conjunctivae. No scleral icterus. Moist oral mucosa. NECK: Supple, nontender, no meningeal signs. CARDIOVASCULAR: Regular rate and rhythm without murmurs, gallops, or rubs. RESPIRATORY: Clear to auscultation. Breath sounds equal bilaterally. No wheezes , rales, or rhonchi. Decreased breath sounds at the bases. GASTROINTESTINAL: Abdomen soft, obese, non-tender, nondistended. . No guarding. MUSCULOSKELETAL: He is status post left BKA in the left lower extremity, with a well-healed stump. RLE very edematous, has dry dressing in place. No calf tenderness. NEUROLOGICAL: Non-focal PSYCH: Normal affect, calm and cooperative LINE: PICC with no evidence of infection Assessment & Plan Remarks IMPRESSION Sepsis on adm due to infection R foot DFI R foot with abscess and oste 2nd and 3rd MT Previous amp R 5th toe and ray resection MT April 2016 Hx previous DFI S/P L BKA Obesity Renal insufficiency, worsened by sepsis It seem that he is not allergic to PCN - he has received Augmentin in past RECOMMENDATION Change Vanco to IV PCN Will still monitor closely if he gets an reaction Further washout per podiatry then decide if further amputation needed Monitor temps Monitor progress I have removed PCN from his allergy list I will see patient again on Wednesday Please call ID correctional cook if with any ID questions, issues or problems this Explained plan to patient Brenda Watson MD Jul 24, 2016 09:22
[2016-07-24] MEDS: GABAPENTIN 400 MG CAP PO SCH ×2 (09:42→21:54)
[2016-07-24] MEDS: METOCLOPRAMIDE HCL 10 MG TAB PO SCH ×3 (09:42→17:56)
[2016-07-24] MEDS: PANTOPRAZOLE SOD 40 MG DELAYED RELEASE TAB PO SCH (09:42)
[2016-07-24] MEDS: FUROSEMIDE 40 MG TAB PO SCH ×2 (09:42→17:56)
[2016-07-24] MEDS: METHADONE HCL 10 MG TAB PO SCH ×4 (09:42→21:54)
[2016-07-24] MEDS: HEPARIN SODIUM - SQ 10,000 UNITS/ML VIAL SQ SCH ×2 (09:43→21:55)
[2016-07-24] MEDS: LACTULOSE SYRUP 20 GM/30 ML CUP PO PRN (09:44)
[2016-07-24] MEDS: INSULIN DETEMIR 100 UNITS/ML VIAL SQ SCH ×2 (09:44→21:55)
[2016-07-24] MEDS: DOCUSATE SODIUM 100 MG CAP PO SCH ×2 (09:51→21:00)
[2016-07-24] MEDS: SODIUM CHLORIDE 0.9% FLUSH 10 ML FLUSH IV FLUSH SCH (09:52)
[2016-07-24] MEDS ORDERED: PHARMACY ORDERED LAB ONE (10:45)
[2016-07-24] MEDS ORDERED: PENICILLIN G SODIUM INJ 3,000,000 UNITS in SODIUM CHLORIDE 0.9% INJ 100 ML IV SCH (11:00)
[2016-07-24 12:00] VITALS: BP 121/65; PULSE 81; RESP 16; TEMP 97.5; O2SAT 97
[2016-07-24] MEDS: LEVOFLOXACIN 750 MG TAB PO SCH (12:00)
[2016-07-24] MEDS: DIAZEPAM 10 MG TAB PO PRN ×2 (13:00→22:06)
[2016-07-24 16:00] VITALS: BP 136/69; PULSE 92; RESP 16; TEMP 96.9; O2SAT 93
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
--- NOTE | 2016-07-24 17:39 | PD.CAR.PN ---
CVT Progress Note Subjective/Hospital Course: Consult received Will see patient in am tomorrow Full dictation to follow Myra Landrum Objective: Vital Signs Date Time Temp Pulse Resp B/P Pulse Ox O2 Delivery O2 Flow Rate FiO2 07/24/16 14:17 16 07/24/16 13:01 16 07/24/16 04:17 97.7 77 16 144/71 92 07/24/16 02:27 16 07/24/16 00:08 98.7 88 16 149/69 92 07/23/16 20:00 98.9 86 16 126/61 94 Result Diagram: 07/23/16 0415 07/24/16 0335 Poly Duque MD Jul 24, 2016 17:39
[2016-07-24] MEDS: PENICILLIN G SODIUM INJ 3,000,000 UNITS in SODIUM CHLORIDE 0.9% INJ 100 ML IV SCH ×2 (17:55→21:53)
[2016-07-24 20:00] VITALS: BP 123/70; PULSE 85; RESP 16; TEMP 98; O2SAT 95
[2016-07-25 00:26] VITALS: BP 122/58; PULSE 99; RESP 18; TEMP 98.7; O2SAT 95
[2016-07-25] MEDS: PENICILLIN G SODIUM INJ 3,000,000 UNITS in SODIUM CHLORIDE 0.9% INJ 100 ML IV SCH ×6 (00:49→20:23)
[2016-07-25] MEDS ORDERED: PHARMACY ORDERED LAB ONE (02:45)
[2016-07-25 04:36] VITALS: BP 136/74; PULSE 103; RESP 20; TEMP 97.5; O2SAT 95
[2016-07-25] MEDS: INSULIN ASPART SUPPLEMENTAL SCALE SQ SCH ×4 (05:43→20:24)
[2016-07-25 08:00] VITALS: BP 121/67; PULSE 80; RESP 16; TEMP 96.9; O2SAT 92
[2016-07-25] MEDS: SODIUM CHLORIDE 0.9% FLUSH 10 ML FLUSH IV FLUSH SCH (08:54)
[2016-07-25] MEDS: FUROSEMIDE 40 MG TAB PO SCH ×2 (08:59→17:48)
[2016-07-25] MEDS: HEPARIN SODIUM - SQ 10,000 UNITS/ML VIAL SQ SCH ×2 (08:59→20:12)
[2016-07-25] MEDS: DOCUSATE SODIUM 100 MG CAP PO SCH ×2 (08:59→20:23)
[2016-07-25] MEDS: LEVOFLOXACIN 750 MG TAB PO SCH (08:59)
[2016-07-25] MEDS: GABAPENTIN 400 MG CAP PO SCH ×2 (08:59→20:23)
[2016-07-25] MEDS: INSULIN DETEMIR 100 UNITS/ML VIAL SQ SCH ×2 (08:59→20:24)
[2016-07-25] MEDS: METOCLOPRAMIDE HCL 10 MG TAB PO SCH ×3 (09:00→16:41)
[2016-07-25] MEDS: METHADONE HCL 10 MG TAB PO SCH ×4 (09:00→20:23)
[2016-07-25] MEDS: PANTOPRAZOLE SOD 40 MG DELAYED RELEASE TAB PO SCH (09:00)
[2016-07-25] MEDS: ONDANSETRON HCL 4 MG/2 ML VIAL IV PRN (09:01)
[2016-07-25 12:45] VITALS: BP 110/70; PULSE 84; RESP 16; TEMP 97.1; O2SAT 90
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
[2016-07-25] MEDS: DIAZEPAM 10 MG TAB PO PRN (13:19)
[2016-07-25 16:00] VITALS: BP 103/60; PULSE 74; RESP 16; TEMP 96.9; O2SAT 92
--- NOTE | 2016-07-25 19:20 | PD.CAR.PN ---
CVT Progress Note Subjective/Hospital Course: Consult received Will see patient in am tomorrow Full dictation to follow Myra Landrum 07/25/2016 Patient with osteomyelitis and non-reconstructable infection of the left foot It is the opinion of the podiatry that at this time all options have been exhausted and the only option is to the higher level amputation I agree with podiatry Full consult dictated Will need second opinion from second vascular surgeon per recent [place] policy and I will ask Dr. Evans and Dr. Larios to see the patient and render the same Objective: Vital Signs Date Time Temp Pulse Resp B/P Pulse Ox O2 Delivery O2 Flow Rate FiO2 07/25/16 16:00 96.9 74 16 103/60 92 07/25/16 12:45 97.1 84 16 110/70 90 07/25/16 08:00 96.9 80 16 121/67 92 07/25/16 04:36 97.5 103 20 136/74 95 07/25/16 00:26 98.7 99 18 122/58 95 07/24/16 20:00 98.0 85 16 123/70 95 Result Diagram: 07/23/16 0415 07/24/16 0335 Poly Duque MD Jul 25, 2016 19:20
[2016-07-25 20:00] VITALS: BP 115/59; PULSE 79; RESP 18; TEMP 96.9; O2SAT 94
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
[2016-07-26] VITALS: BP 120/67; PULSE 76; RESP 18; TEMP 96.8; O2SAT 96
[2016-07-26] MEDS: PENICILLIN G SODIUM INJ 3,000,000 UNITS in SODIUM CHLORIDE 0.9% INJ 100 ML IV SCH ×6 (00:07→21:29)
[2016-07-26 04:00] VITALS: BP 112/73; PULSE 73; RESP 19; TEMP 96.6; O2SAT 95
[2016-07-26] MEDS: INSULIN ASPART SUPPLEMENTAL SCALE SQ SCH ×4 (05:52→21:00)
[2016-07-26] MEDS ORDERED: METOPROLOL TARTRATE 25 MG TAB PO PRN (06:45)
[2016-07-26] MEDS ORDERED: LACTATED RINGER'S 1000 ML IV PRN (06:45)
[2016-07-26] MEDS ORDERED: SODIUM CHLORID 0.9% 500 ML IV PRN (06:45)
[2016-07-26] MEDS ORDERED: POVIDONE IODINE 5% (ANTISEPSIS KIT) 4 APPLICATIONS EACH NARE PRN (06:45)
[2016-07-26] MEDS ORDERED: INSULIN HUMAN REGULAR 1,000 UNITS/10 ML VIAL SQ PRN (06:45)
[2016-07-26] MEDS ORDERED: CHLORHEXIDINE GLUCONATE 2 % 1 PACK (2 CLOTHS) TOPICAL PRN (06:45)
[2016-07-26 07:50] VITALS: BP 135/66; PULSE 78; RESP 20; TEMP 97.2; O2SAT 97
[2016-07-26] MEDS: INSULIN DETEMIR 100 UNITS/ML VIAL SQ SCH ×2 (09:46→21:29)
[2016-07-26] MEDS: GABAPENTIN 400 MG CAP PO SCH ×2 (09:47→21:28)
[2016-07-26] MEDS: DOCUSATE SODIUM 100 MG CAP PO SCH ×2 (09:47→21:28)
[2016-07-26] MEDS: FUROSEMIDE 40 MG TAB PO SCH ×2 (09:47→17:13)
[2016-07-26] MEDS: METOCLOPRAMIDE HCL 10 MG TAB PO SCH ×3 (09:47→17:13)
[2016-07-26] MEDS: PANTOPRAZOLE SOD 40 MG DELAYED RELEASE TAB PO SCH (09:47)
[2016-07-26] MEDS: LEVOFLOXACIN 750 MG TAB PO SCH (09:47)
[2016-07-26] MEDS: METHADONE HCL 10 MG TAB PO SCH ×4 (09:47→21:27)
[2016-07-26] MEDS: SODIUM CHLORIDE 0.9% FLUSH 10 ML FLUSH IV FLUSH SCH (09:48)
[2016-07-26] MEDS: HEPARIN SODIUM - SQ 10,000 UNITS/ML VIAL SQ SCH ×2 (09:53→19:28)
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
[2016-07-26 11:50] VITALS: BP 121/66; PULSE 88; RESP 20; TEMP 98.5; O2SAT 95
[2016-07-26] MEDS: ONDANSETRON HCL 4 MG/2 ML VIAL IV PRN (15:00)
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
[2016-07-26 15:50] VITALS: BP 109/57; PULSE 80; RESP 20; TEMP 98.3; O2SAT 94
[2016-07-26 20:00] VITALS: BP 119/80; PULSE 81; RESP 18; TEMP 96.5; O2SAT 96
[2016-07-26] MEDS: DIAZEPAM 10 MG TAB PO PRN (21:35)
[2016-07-27] VITALS: BP 105/56; PULSE 83; RESP 19; TEMP 97.5; O2SAT 95
[2016-07-27] MEDS: PENICILLIN G SODIUM INJ 3,000,000 UNITS in SODIUM CHLORIDE 0.9% INJ 100 ML IV SCH ×5 (00:39→21:52)
[2016-07-27 04:00] VITALS: BP 117/55; PULSE 80; RESP 19; TEMP 97; O2SAT 96
[2016-07-27] MEDS: INSULIN ASPART SUPPLEMENTAL SCALE SQ SCH ×3 (05:30→22:12)
[2016-07-27 08:00] VITALS: BP 131/63; PULSE 81; RESP 20; TEMP 97.8; O2SAT 95
[2016-07-27] MEDS ORDERED: ROPIVACAINE 0.5% PF INJ 30 ML VIAL NERV BLOCK ONE (08:06)
[2016-07-27] MEDS: DOCUSATE SODIUM 100 MG CAP PO SCH ×2 (08:28→21:50)
[2016-07-27] MEDS: LEVOFLOXACIN 750 MG TAB PO SCH (08:28)
[2016-07-27] MEDS: METOCLOPRAMIDE HCL 10 MG TAB PO SCH ×3 (08:28→18:00)
[2016-07-27] MEDS: FUROSEMIDE 40 MG TAB PO SCH ×2 (08:28→18:00)
[2016-07-27] MEDS: GABAPENTIN 400 MG CAP PO SCH ×2 (08:29→21:50)
[2016-07-27] MEDS: PANTOPRAZOLE SOD 40 MG DELAYED RELEASE TAB PO SCH (08:29)
[2016-07-27] MEDS: METHADONE HCL 10 MG TAB PO SCH ×4 (08:29→21:51)
[2016-07-27] MEDS: DIAZEPAM 10 MG TAB PO PRN (08:34)
[2016-07-27] MEDS: INSULIN DETEMIR 100 UNITS/ML VIAL SQ SCH ×2 (08:39→21:52)
[2016-07-27] MEDS: HEPARIN SODIUM - SQ 10,000 UNITS/ML VIAL SQ SCH ×2 (08:41→21:52)
[2016-07-27] MEDS: SODIUM CHLORIDE 0.9% FLUSH 10 ML FLUSH IV FLUSH SCH (09:00)
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
[2016-07-27] MEDS ORDERED: ONDANSETRON HCL 4 MG/2 ML VIAL IV PUSH ONE (12:00)
[2016-07-27] MEDS ORDERED: SODIUM CHLOR 0.9% 1000 ML INJ 1,000 ML IV ONE (12:00)
[2016-07-27] MEDS ORDERED: NORMOSOL R INJ 1,000 ML IV ONE ×2 (12:00)
[2016-07-27] MEDS ORDERED: PHENYLEPH/NS 1000 MCG/10 ML SYR IV ONE (12:00)
[2016-07-27] MEDS ORDERED: ePHEDrine/NS 25 MG/5 ML SYR IV ONE (12:00)
[2016-07-27] MEDS ORDERED: PROPOFOL 200 MG/20 ML AMP IV ONE (12:00)
[2016-07-27] MEDS ORDERED: ACETAMINOPHEN 1000 MG/100 ML VIAL IV ONE (13:43)
[2016-07-27 15:49] LABS: HEMATOCRIT 27.9 % (39.0-51.0); REVIEW FLAG FINAL
[2016-07-27] MEDS ORDERED: DO NOT ADM ANY ANTICOAGULANT DRUGS PRN (16:31)
[2016-07-27] MEDS ORDERED: fentaNYL CITRATE 250 MCG/5 ML AMP ONE (17:08)
[2016-07-27] MEDS ORDERED: MIDAZOLAM HCL 2 MG/2 ML VIAL ONE (17:09)
[2016-07-27 20:00] VITALS: BP 103/63; PULSE 97; RESP 21; TEMP 97.2; O2SAT 94
[2016-07-28] VITALS: BP 101/65; PULSE 101; RESP 16; TEMP 97.3; O2SAT 95
[2016-07-28] MEDS: HYDROmorphone HCL PF 1 MG/ML VIAL IV PUSH PRN ×4 (00:35→19:15)
[2016-07-28] MEDS: PENICILLIN G SODIUM INJ 3,000,000 UNITS in SODIUM CHLORIDE 0.9% INJ 100 ML IV SCH ×7 (00:35→23:47)
[2016-07-28] MEDS: DIAZEPAM 10 MG TAB PO PRN (04:42)
[2016-07-28] MEDS: INSULIN ASPART SUPPLEMENTAL SCALE SQ SCH ×4 (06:42→21:54)
[2016-07-28] MEDS: METOCLOPRAMIDE HCL 10 MG TAB PO SCH ×3 (06:42→17:11)
[2016-07-28 06:57] LABS: BICARBONATE 32.4 MEQ/L (21.0-32.0); POTASSIUM 3.7 MEQ/L (3.5-5.1)
[2016-07-28 08:00] VITALS: BP 133/63; PULSE 106; RESP 18; TEMP 99.2; O2SAT 92
[2016-07-28] MEDS: DOCUSATE SODIUM 100 MG CAP PO SCH ×2 (09:00→21:53)
[2016-07-28] MEDS: LEVOFLOXACIN 750 MG TAB PO SCH (09:53)
[2016-07-28] MEDS: HEPARIN SODIUM - SQ 10,000 UNITS/ML VIAL SQ SCH ×2 (09:53→21:53)
[2016-07-28] MEDS: PANTOPRAZOLE SOD 40 MG DELAYED RELEASE TAB PO SCH (09:54)
[2016-07-28] MEDS: METHADONE HCL 10 MG TAB PO SCH ×4 (09:54→21:53)
[2016-07-28] MEDS: GABAPENTIN 400 MG CAP PO SCH ×2 (09:55→21:53)
[2016-07-28] MEDS: SODIUM CHLORIDE 0.9% FLUSH 10 ML FLUSH IV FLUSH SCH (09:55)
[2016-07-28] MEDS: FUROSEMIDE 40 MG TAB PO SCH (09:55)
[2016-07-28] MEDS: INSULIN DETEMIR 100 UNITS/ML VIAL SQ SCH ×2 (09:56→21:54)
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
[2016-07-28 12:00] VITALS: BP 104/55; PULSE 97; RESP 16; TEMP 98.5; O2SAT 96
--- NOTE | 2016-07-28 12:35 | HHI.IDPN ---
Subjective Subjective Remarks Notes reviewed No fever S/P RBKA 07/27 Pain under control Biopsy C/W acute osteo C/S Enterococcus ESR 37 CRP 26 No diarrhea No rash or itching Antibiotics PCN IV Levaquin Lines PICC Past Medical History Diabetes mellitus HTN Hyperlipidemia Chronic pain syndrome Gastroparesis Depression/Anxiety Morbid obesity Peripheral neuropathy PVD PIPPA Previous diabetic foot infections Past Surgical History Right 5th ray amputation in 04/2016 Left BKA in 2004 Right ankle surgery with hardware placement in 1984 Facial reconstructive surgery in 1982 Allergies: Coded Allergies: Enalapril (Verified Allergy, Severe, Rash, 07/14/16) *MDRO Multi-Drug Resistant Organism (Verified Adverse Reaction, Unknown, ) MRSA (wound) - 2002 MRSA PCR Screens NEGATIVE - 12/31/15 & 01/02/2016 CLEARED BY INFECTION CONTROL Objective . Vital Signs Date Time Temp Pulse Resp B/P Pulse Ox O2 Delivery O2 Flow Rate FiO2 07/28/16 08:00 99.2 106 18 133/63 92 07/28/16 00:00 97.3 101 16 101/65 95 07/27/16 20:00 97.2 97 21 103/63 94 07/27/16 19:00 97.9 83 17 108/69 98 Nasal Cannula 2 07/27/16 18:15 82 17 112/71 98 Nasal Cannula 2 07/27/16 17:45 85 17 112/69 95 Nasal Cannula 2 07/27/16 17:33 85 17 102/65 95 Nasal Cannula 2 07/27/16 17:15 87 15 104/67 95 Nasal Cannula 2 07/27/16 17:00 88 15 88/54 97 Nasal Cannula 2 07/27/16 16:45 88 15 98/60 97 Nasal Cannula 2 07/27/16 16:29 97.6 91 15 94/69 98 Nasal Cannula 2 07/27/16 07/27/16 07/28/16 15:00 23:00 07:00 Intake Total 0 ml 3040 ml 340 ml Output Total 2075 ml 1100 ml 1000 ml Balance -2075 ml 1940 ml -660 ml Intake Oral 0 ml 240 ml 240 ml IV Total 1200 ml 100 ml Other 1600 ml Output Urine Total 2075 ml 300 ml 1000 ml Estimated Blood Loss 800 ml # Bowel Movements 0 0 . Laboratory Tests Test 07/27/16 13:24 Hemoglobin 9.3 GM/DL Hematocrit 27.9 % Laboratory Tests Test 07/28/16 05:51 Sodium Level 139 MEQ/L Potassium Level 3.7 MEQ/L Chloride Level 101 MEQ/L Carbon Dioxide Level 32.4 MEQ/L Anion Gap 6 MEQ/L Blood Urea Nitrogen 22 MG/DL Creatinine 1.33 MG/DL Estimat Glomerular Filtration 58 ML/MIN Rate Random Glucose 174 MG/DL Calcium Level 8.0 MG/DL Imaging Last Impressions Lower Extremity Ultrasound 07/14/16 0550 Signed Impressions: Service Date/Time: Thursday, July 14, 2016 07:37 - CONCLUSION: Normal examination. Shaun Conner MD Foot MRI 07/14/16 0000 Signed Impressions: Service Date/Time: Thursday, July 14, 2016 11:10 - CONCLUSION: 1. Bodies left myelitis involving the second and third metatarsals as well as the cuneiforms. 2. Multilocular abscess is present as described above predominantly between the second and third metatarsals. Cuong Roldan MD Physical Exam GENERAL: NAD SKIN: Warm and moist. No generalized rash HEENT: [place] conjunctivae. No scleral icterus. Moist oral mucosa. NECK: Supple, nontender, no meningeal signs. CARDIOVASCULAR: Regular rate and rhythm without murmurs, gallops, or rubs. RESPIRATORY: Clear to auscultation. Breath sounds equal bilaterally. No wheezes , rales, or rhonchi. Decreased breath sounds at the bases. GASTROINTESTINAL: Abdomen soft, obese, non-tender, nondistended. . No guarding. MUSCULOSKELETAL: He is status post left BKA in the left lower extremity, with a well-healed stump. Has intact and dry dressing to his RBKA stump NEUROLOGICAL: Non-focal PSYCH: Normal affect, calm and cooperative LINE: PICC with no evidence of infection Assessment & Plan Remarks IMPRESSION Sepsis on adm due to infection R foot DFI R foot with abscess and oste 2nd and 3rd MT Previous amp R 5th toe and ray resection MT April 2016 Hx previous DFI S/P L BKA Obesity Renal insufficiency, worsened by sepsis It seem that he is not allergic to PCN - he has received Augmentin in past RECOMMENDATION Continue IV PCN Also on Levaquin Should be able to change to oral Abx in a few days Monitor progress Brenda Watson MD Jul 28, 2016 12:35
[2016-07-28] MEDS ORDERED: HYDROmorphone HCL PF 1 MG/ML VIAL IV PUSH ONE (14:30)
[2016-07-28 16:00] VITALS: BP 118/60; PULSE 96; RESP 16; TEMP 97.9; O2SAT 96
--- NOTE | 2016-07-28 17:54 | PD.CAR.PN ---
CVT Progress Note Subjective/Hospital Course: Consult received Will see patient in am tomorrow Full dictation to follow Myra Landrum 07/25/2016 Patient with osteomyelitis and non-reconstructable infection of the left foot It is the opinion of the podiatry that at this time all options have been exhausted and the only option is to the higher level amputation I agree with podiatry Full consult dictated Will need second opinion from second vascular surgeon per recent [place] policy and I will ask Dr. Evans and Dr. Larios to see the patient and render the same 07/28/16 Patient status post left below-knee amputation This was quite complex procedure in the face of severe edema organized phlebolith thrombosis sequela and lipoma fibrosis with lymph stasis in the left leg Patient however did well dressing is intact and should stay so for next 48 hours We will remove the dressing on and until then patient should have leg elevated to minimize the swelling Objective: Vital Signs Date Time Temp Pulse Resp B/P Pulse Ox O2 Delivery O2 Flow Rate FiO2 07/28/16 16:00 97.9 96 16 118/60 96 07/28/16 12:00 98.5 97 16 104/55 96 07/28/16 08:00 99.2 106 18 133/63 92 07/28/16 00:00 97.3 101 16 101/65 95 07/27/16 20:00 97.2 97 21 103/63 94 07/27/16 19:00 97.9 83 17 108/69 98 Nasal Cannula 2 07/27/16 18:15 82 17 112/71 98 Nasal Cannula 2 Result Diagram: 07/27/16 1324 07/28/16 0551 Poly Duque MD Jul 28, 2016 17:54
[2016-07-28 20:00] VITALS: BP 121/63; PULSE 104; RESP 18; TEMP 98.8; O2SAT 92
[2016-07-29] VITALS: BP 117/67; PULSE 103; RESP 18; TEMP 98.7; O2SAT 95
[2016-07-29] MEDS: HYDROmorphone HCL PF 1 MG/ML VIAL IV PUSH PRN ×4 (00:56→22:00)
[2016-07-29 05:49] LABS: AUTOMATED NEUTROPHIL # 9.4 TH/MM3 (1.8-7.7); BASOPHIL # 0.1 TH/MM3 (0-0.2); BASOPHIL % 0.4 % (0.0-2.0); EOSINOPHIL # 0.1 TH/MM3 (0-0.4); HEMATOCRIT 23.5 % (39.0-51.0); HEMO FLAGS DIFF FINAL; LYMPH % 12.1 % (9.0-44.0); LYMPHOCYTE # 1.6 TH/MM3 (1.0-4.8); MEAN CELL VOLUME 84.2 FL (80.0-100.0); MEAN CORPUSCULAR HEMOGLOBIN 27.3 PG (27.0-34.0); MEAN CORPUSCULAR HGB CONC 32.5 % (32.0-36.0); MONO % 13.7 % (0.0-8.0); NEUT % 72.8 % (16.0-70.0); PLATELET COUNT 304 TH/MM3 (150-450); RED BLOOD COUNT 2.79 MIL/MM3 (4.50-5.90); RED CELL DISTRIBUTION WIDTH 14.9 % (11.6-17.2)
[2016-07-29] MEDS: PENICILLIN G SODIUM INJ 3,000,000 UNITS in SODIUM CHLORIDE 0.9% INJ 100 ML IV SCH ×5 (06:00→20:51)
[2016-07-29] MEDS: INSULIN ASPART SUPPLEMENTAL SCALE SQ SCH ×4 (06:01→21:00)
[2016-07-29 06:11] LABS: BICARBONATE 32.9 MEQ/L (21.0-32.0); POTASSIUM 3.5 MEQ/L (3.5-5.1)
--- NOTE | 2016-07-29 07:21 | MP ---
cc: POLY CRAMER MD DATE OF SURGERY 07/27/2016 PREOPERATIVE DIAGNOSES Gangrene of amputation of the foot. Recurrent osteomyelitis. Sepsis. Massive edema of the right leg. Obesity. POSTOPERATIVE DIAGNOSES Gangrene of amputation of the foot. Recurrent osteomyelitis. Sepsis. Massive edema of the right leg. Obesity. PROCEDURES Right below-knee amputation. SURGEON MD Neto ANESTHESIA General. ESTIMATED BLOOD LOSS 700 cc. PROCEDURE The patient is prepped and draped in the usual fashion and incision outlined on the skin. Anterior portion of incision made with 10 blade, deepened down. The patient has very large veins which are surrounded by organized fibro-liposis and fibrotic tissue so these have to be ligated individually with 2-0 Vicryl stick ties. The incision is deepened down to the level of the tibia, then medially to the fascia and then fascia is longitudinally opened with cautery creating the medial portion of the flap. The same is done laterally and then anterior tibial artery and veins are clamped, divided and ligated with 2-0 Vicryl stick ties. The fibula is exposed. With the periosteal elevator, the periosteum is elevated about 2 inches above the level of the incision and then with oscillating saw the tibia and fibula are transected. While this last portion is carried out, the tourniquet is inflated on the thigh to minimize the bleeding. The amputation knife is now used to remove the specimen and to create the posterior flap. In one fell swoop, the specimen is now removed. Meticulous hemostasis is obtained with 0 Vicryl stick ties of the branches of the trifurcation and with cautery for small bleeders. The stump is now irrigated with saline and then the posterior flap is tailored, removing some additional tissue. The anterior tibial nerve is allowed to retract. The flap is now turned upward and then incision closed [id number] with 0 Vicryl interrupted stitches and skin with 2-0 Prolene interrupted stitches. Dressing applied. The patient tolerated the procedure well. Poly CHEN/DELVIS /6:15 PM /7:00 AM
[2016-07-29 08:00] VITALS: BP 133/66; PULSE 103; RESP 18; TEMP 99.1; O2SAT 92
[2016-07-29] MEDS: METOCLOPRAMIDE HCL 10 MG TAB PO SCH ×3 (08:00→17:21)
[2016-07-29] MEDS: SODIUM CHLORIDE 0.9% FLUSH 10 ML FLUSH IV FLUSH SCH (09:00)
[2016-07-29] MEDS: INSULIN DETEMIR 100 UNITS/ML VIAL SQ SCH ×2 (09:50→20:54)
[2016-07-29] MEDS: DOCUSATE SODIUM 100 MG CAP PO SCH ×2 (09:50→20:51)
[2016-07-29] MEDS: FUROSEMIDE 40 MG TAB PO SCH ×2 (09:50→17:21)
[2016-07-29] MEDS: METHADONE HCL 10 MG TAB PO SCH ×4 (09:50→20:52)
[2016-07-29] MEDS: PANTOPRAZOLE SOD 40 MG DELAYED RELEASE TAB PO SCH (09:50)
[2016-07-29] MEDS: LEVOFLOXACIN 750 MG TAB PO SCH (09:50)
[2016-07-29] MEDS: HEPARIN SODIUM - SQ 10,000 UNITS/ML VIAL SQ SCH ×2 (09:51→20:51)
[2016-07-29] MEDS: GABAPENTIN 400 MG CAP PO SCH ×3 (09:51→20:52)
[2016-07-29 12:00] VITALS: BP 115/67; PULSE 95; RESP 17; TEMP 99.3; O2SAT 93
[2016-07-29] MEDS ORDERED: HYDROmorphone HCL PF 1 MG/ML VIAL IV PUSH ONE (12:15)
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
[2016-07-29] MEDS: LACTULOSE SYRUP 20 GM/30 ML CUP PO SCH (12:30)
[2016-07-29 16:00] VITALS: BP 111/61; PULSE 95; RESP 17; TEMP 98.4; O2SAT 93
[2016-07-29 20:27] VITALS: BP 108/77; PULSE 90; RESP 18; TEMP 99.2; O2SAT 98
[2016-07-29 23:52] VITALS: BP 106/57; PULSE 88; RESP 18; TEMP 98.6; O2SAT 98
[2016-07-30] MEDS: PENICILLIN G SODIUM INJ 3,000,000 UNITS in SODIUM CHLORIDE 0.9% INJ 100 ML IV SCH ×5 (01:23→19:48)
[2016-07-30] MEDS: HYDROmorphone HCL PF 1 MG/ML VIAL IV PUSH PRN ×3 (02:25→13:11)
[2016-07-30 05:19] LABS: AUTOMATED NEUTROPHIL # 9.7 TH/MM3 (1.8-7.7); BASOPHIL # 0.1 TH/MM3 (0-0.2); BASOPHIL % 0.5 % (0.0-2.0); EOSINOPHIL # 0.1 TH/MM3 (0-0.4); HEMATOCRIT 22.7 % (39.0-51.0); HEMO FLAGS DIFF FINAL; LYMPH % 12.3 % (9.0-44.0); LYMPHOCYTE # 1.7 TH/MM3 (1.0-4.8); MEAN CELL VOLUME 83.9 FL (80.0-100.0); MEAN CORPUSCULAR HEMOGLOBIN 27.9 PG (27.0-34.0); MEAN CORPUSCULAR HGB CONC 33.2 % (32.0-36.0); MONO % 15.1 % (0.0-8.0); NEUT % 71.1 % (16.0-70.0); PLATELET COUNT 341 TH/MM3 (150-450); RED CELL DISTRIBUTION WIDTH 14.8 % (11.6-17.2); WHITE BLOOD COUNT 13.6 TH/MM3 (4.0-11.0)
[2016-07-30] MEDS: INSULIN ASPART SUPPLEMENTAL SCALE SQ SCH ×4 (06:00→19:51)
[2016-07-30 08:00] VITALS: BP 109/67; PULSE 88; RESP 18; TEMP 98.4; O2SAT 99
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
[2016-07-30] MEDS: HEPARIN SODIUM - SQ 10,000 UNITS/ML VIAL SQ SCH ×2 (09:43→19:49)
[2016-07-30] MEDS: LACTULOSE SYRUP 20 GM/30 ML CUP PO SCH (09:44)
[2016-07-30] MEDS: FUROSEMIDE 40 MG TAB PO SCH ×2 (09:44→18:13)
[2016-07-30] MEDS: GABAPENTIN 400 MG CAP PO SCH ×3 (09:44→19:48)
[2016-07-30] MEDS: DOCUSATE SODIUM 100 MG CAP PO SCH ×2 (09:45→19:48)
[2016-07-30] MEDS: PANTOPRAZOLE SOD 40 MG DELAYED RELEASE TAB PO SCH (09:45)
[2016-07-30] MEDS: METOCLOPRAMIDE HCL 10 MG TAB PO SCH ×3 (09:46→18:13)
[2016-07-30] MEDS: INSULIN DETEMIR 100 UNITS/ML VIAL SQ SCH ×2 (09:46→19:49)
[2016-07-30] MEDS: METHADONE HCL 10 MG TAB PO SCH ×4 (09:46→21:10)
[2016-07-30] MEDS: SODIUM CHLORIDE 0.9% FLUSH 10 ML FLUSH IV FLUSH SCH (09:48)
[2016-07-30 12:00] VITALS: BP 112/69; PULSE 85; RESP 18; TEMP 97.9; O2SAT 100
--- NOTE | 2016-07-30 12:51 | PD.CAR.PN ---
CVT Progress Note Subjective/Hospital Course: Consult received Will see patient in am tomorrow Full dictation to follow Myra Landrum 07/25/2016 Patient with osteomyelitis and non-reconstructable infection of the left foot It is the opinion of the podiatry that at this time all options have been exhausted and the only option is to the higher level amputation I agree with podiatry Full consult dictated Will need second opinion from second vascular surgeon per recent [place] policy and I will ask Dr. Evans and Dr. Larios to see the patient and render the same 07/28/16 Patient status post left below-knee amputation This was quite complex procedure in the face of severe edema organized phlebolith thrombosis sequela and lipoma fibrosis with lymph stasis in the left leg Patient however did well dressing is intact and should stay so for next 48 hours We will remove the dressing on and until then patient should have leg elevated to minimize the swelling 07/30/2016 Stump and nice clean and dry healing well No drainage Stitches intact Nothing to add to care at this time stitches will stay in for about 3 weeks Objective: Vital Signs Date Time Temp Pulse Resp B/P Pulse Ox O2 Delivery O2 Flow Rate FiO2 07/30/16 12:00 97.9 85 18 112/69 100 07/30/16 08:00 98.4 88 18 109/67 99 07/30/16 05:57 18 07/30/16 02:24 17 07/29/16 23:52 98.6 88 18 106/57 98 07/29/16 21:52 18 07/29/16 20:27 99.2 90 18 108/77 98 07/29/16 16:00 98.4 95 17 111/61 93 Labs: Laboratory Tests Test 07/30/16 07/30/16 04:45 11:20 White Blood Count 13.6 TH/MM3 (4.0-11.0) Red Blood Count 2.70 MIL/MM3 (4.50-5.90) Hemoglobin 7.5 GM/DL (13.0-17.0) Hematocrit 22.7 % (39.0-51.0) Mean Corpuscular Volume 83.9 FL (80.0-100.0) Mean Corpuscular Hemoglobin 27.9 PG (27.0-34.0) Mean Corpuscular Hemoglobin 33.2 % Concent (32.0-36.0) Red Cell Distribution Width 14.8 % (11.6-17.2) Platelet Count 341 TH/MM3 (150-450) Mean Platelet Volume 8.4 FL (7.0-11.0) Neutrophils (%) (Auto) 71.1 % (16.0-70.0) Lymphocytes (%) (Auto) 12.3 % (9.0-44.0) Monocytes (%) (Auto) 15.1 % (0.0-8.0) Eosinophils (%) (Auto) 1.0 % (0.0-4.0) Basophils (%) (Auto) 0.5 % (0.0-2.0) Neutrophils # (Auto) 9.7 TH/MM3 (1.8-7.7) Lymphocytes # (Auto) 1.7 TH/MM3 (1.0-4.8) Monocytes # (Auto) 2.1 TH/MM3 (0-0.9) Eosinophils # (Auto) 0.1 TH/MM3 (0-0.4) Basophils # (Auto) 0.1 TH/MM3 (0-0.2) CBC Comment DIFF FINAL Differential Comment Blood Type A POSITIVE Antibody Screen NEGATIVE Crossmatch Leukocyte-Reduced Red Blood Cells Blood Bank Comment Result Diagram: 07/30/16 0445 07/29/16 0458 Poly Duque MD Jul 30, 2016 12:51
[2016-07-30 14:14] VITALS: BP 108/67; PULSE 95; RESP 17; TEMP 98.4; O2SAT 95
[2016-07-30 15:25] VITALS: BP 124/59; PULSE 85; RESP 17; TEMP 97.5; O2SAT 95
[2016-07-30 16:00] VITALS: BP 122/76; PULSE 88; RESP 19; TEMP 97.9; O2SAT 99
[2016-07-30 20:00] VITALS: BP 119/64; PULSE 92; RESP 18; TEMP 97.8; O2SAT 95
[2016-07-31] VITALS: BP 122/60; PULSE 81; RESP 18; TEMP 98.8; O2SAT 94
[2016-07-31] MEDS: PENICILLIN G SODIUM INJ 3,000,000 UNITS in SODIUM CHLORIDE 0.9% INJ 100 ML IV SCH ×6 (00:52→21:38)
[2016-07-31] MEDS: HYDROmorphone HCL PF 1 MG/ML VIAL IV PUSH PRN (00:53)
[2016-07-31 05:07] LABS: AUTOMATED NEUTROPHIL # 7.1 TH/MM3 (1.8-7.7); BASOPHIL # 0.1 TH/MM3 (0-0.2); BASOPHIL % 0.9 % (0.0-2.0); EOSINOPHIL # 0.2 TH/MM3 (0-0.4); EOSINOPHIL % 1.7 % (0.0-4.0); HEMATOCRIT 24.3 % (39.0-51.0); HEMO FLAGS DIFF FINAL; LYMPH % 17.5 % (9.0-44.0); LYMPHOCYTE # 1.9 TH/MM3 (1.0-4.8); MEAN CELL VOLUME 83.7 FL (80.0-100.0); MEAN CORPUSCULAR HGB CONC 33.5 % (32.0-36.0); MONO % 15.9 % (0.0-8.0); PLATELET COUNT 308 TH/MM3 (150-450); RED CELL DISTRIBUTION WIDTH 14.7 % (11.6-17.2); WHITE BLOOD COUNT 11.1 TH/MM3 (4.0-11.0)
[2016-07-31] MEDS: INSULIN ASPART SUPPLEMENTAL SCALE SQ SCH ×4 (05:29→21:46)
[2016-07-31 08:00] VITALS: BP 123/64; PULSE 78; RESP 10; TEMP 97.7; O2SAT 95
[2016-07-31] MEDS: GABAPENTIN 400 MG CAP PO SCH ×3 (08:23→21:39)
[2016-07-31] MEDS: PANTOPRAZOLE SOD 40 MG DELAYED RELEASE TAB PO SCH (08:23)
[2016-07-31] MEDS: INSULIN DETEMIR 100 UNITS/ML VIAL SQ SCH ×2 (08:23→21:40)
[2016-07-31] MEDS: METOCLOPRAMIDE HCL 10 MG TAB PO SCH ×3 (08:23→17:23)
[2016-07-31] MEDS: METHADONE HCL 10 MG TAB PO SCH ×4 (08:24→21:39)
[2016-07-31] MEDS: FUROSEMIDE 40 MG TAB PO SCH ×2 (08:24→17:23)
[2016-07-31] MEDS: LACTULOSE SYRUP 20 GM/30 ML CUP PO SCH (08:24)
[2016-07-31] MEDS: DOCUSATE SODIUM 100 MG CAP PO SCH ×2 (08:24→21:39)
[2016-07-31] MEDS: HEPARIN SODIUM - SQ 10,000 UNITS/ML VIAL SQ SCH ×2 (08:25→21:39)
[2016-07-31] MEDS: SODIUM CHLORIDE 0.9% FLUSH 10 ML FLUSH IV FLUSH SCH (08:25)
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
[2016-07-31 12:00] VITALS: BP 122/69; PULSE 77; RESP 12; TEMP 97.6; O2SAT 95
[2016-07-31 16:00] VITALS: BP 110/59; PULSE 80; RESP 11; TEMP 97.2; O2SAT 96
[2016-07-31 20:00] VITALS: BP 130/64; PULSE 80; RESP 20; TEMP 98.1; O2SAT 95
[2016-08-01] VITALS: BP 119/61; PULSE 84; RESP 20; TEMP 98.6; O2SAT 95
[2016-08-01] MEDS: PENICILLIN G SODIUM INJ 3,000,000 UNITS in SODIUM CHLORIDE 0.9% INJ 100 ML IV SCH ×6 (00:19→21:24)
[2016-08-01] MEDS: INSULIN ASPART SUPPLEMENTAL SCALE SQ SCH ×4 (06:30→21:00)
[2016-08-01 08:00] VITALS: BP 128/65; PULSE 77; RESP 18; TEMP 98.2; O2SAT 98
[2016-08-01] MEDS: PANTOPRAZOLE SOD 40 MG DELAYED RELEASE TAB PO SCH (09:00)
[2016-08-01] MEDS: SODIUM CHLORIDE 0.9% FLUSH 10 ML FLUSH IV FLUSH SCH (09:00)
[2016-08-01] MEDS: LACTULOSE SYRUP 20 GM/30 ML CUP PO SCH (09:00)
[2016-08-01] MEDS: DOCUSATE SODIUM 100 MG CAP PO SCH ×2 (09:01→21:24)
[2016-08-01] MEDS: GABAPENTIN 400 MG CAP PO SCH ×3 (09:01→21:23)
[2016-08-01] MEDS: HEPARIN SODIUM - SQ 10,000 UNITS/ML VIAL SQ SCH ×2 (09:02→21:24)
[2016-08-01] MEDS: METOCLOPRAMIDE HCL 10 MG TAB PO SCH ×3 (09:03→16:38)
[2016-08-01] MEDS: INSULIN DETEMIR 100 UNITS/ML VIAL SQ SCH ×2 (09:03→21:26)
[2016-08-01] MEDS: METHADONE HCL 10 MG TAB PO SCH ×4 (09:04→21:24)
[2016-08-01] MEDS: FUROSEMIDE 40 MG TAB PO SCH ×2 (09:09→17:24)
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
[2016-08-01 12:00] VITALS: BP 123/75; PULSE 86; RESP 20; TEMP 98; O2SAT 95
[2016-08-01] MEDS ORDERED: MAGNESIUM CITRATE SOLN 300 ML BTL PO ONE (12:15)
[2016-08-01 16:00] VITALS: BP 120/62; PULSE 70; RESP 17; TEMP 97.3; O2SAT 95
[2016-08-01 20:00] VITALS: BP 125/66; PULSE 84; RESP 17; TEMP 97; O2SAT 96
[2016-08-01] MEDS: DIAZEPAM 10 MG TAB PO PRN (21:30)
[2016-08-02] VITALS: BP 143/69; PULSE 87; RESP 17; TEMP 97.7; O2SAT 98
[2016-08-02] MEDS: PENICILLIN G SODIUM INJ 3,000,000 UNITS in SODIUM CHLORIDE 0.9% INJ 100 ML IV SCH ×6 (01:07→21:16)
[2016-08-02] MEDS: INSULIN ASPART SUPPLEMENTAL SCALE SQ SCH ×4 (05:28→21:19)
[2016-08-02 08:00] VITALS: BP 138/70; PULSE 67; RESP 19; TEMP 97.6; O2SAT 95
[2016-08-02] MEDS: METOCLOPRAMIDE HCL 10 MG TAB PO SCH ×3 (08:00→16:11)
[2016-08-02] MEDS: LACTULOSE SYRUP 20 GM/30 ML CUP PO SCH (08:14)
[2016-08-02] MEDS: INSULIN DETEMIR 100 UNITS/ML VIAL SQ SCH ×2 (08:14→21:18)
[2016-08-02] MEDS: FUROSEMIDE 40 MG TAB PO SCH ×2 (08:15→18:03)
[2016-08-02] MEDS: METHADONE HCL 10 MG TAB PO SCH ×4 (08:15→21:16)
[2016-08-02] MEDS: GABAPENTIN 400 MG CAP PO SCH ×3 (08:15→21:15)
[2016-08-02] MEDS: PANTOPRAZOLE SOD 40 MG DELAYED RELEASE TAB PO SCH (08:15)
[2016-08-02] MEDS: DOCUSATE SODIUM 100 MG CAP PO SCH ×2 (08:15→21:15)
[2016-08-02] MEDS: HEPARIN SODIUM - SQ 10,000 UNITS/ML VIAL SQ SCH ×2 (08:16→21:15)
[2016-08-02] MEDS: SODIUM CHLORIDE 0.9% FLUSH 10 ML FLUSH IV FLUSH SCH (09:00)
--- NOTE | 2016-08-02 10:45 | HHI.IDPN ---
Subjective Subjective Remarks Notes reviewed No fever S/P RBKA 07/27 Pain under control Plans for D/C to rehab Biopsy C/W acute osteo C/S Enterococcus ESR 37 CRP 26 No diarrhea No rash or itching Antibiotics PCN IV Lines PICC Past Medical History Diabetes mellitus HTN Hyperlipidemia Chronic pain syndrome Gastroparesis Depression/Anxiety Morbid obesity Peripheral neuropathy PVD PIPPA Previous diabetic foot infections Past Surgical History Right 5th ray amputation in 04/2016 Left BKA in 2004 Right ankle surgery with hardware placement in 1984 Facial reconstructive surgery in 1982 Allergies: Coded Allergies: Enalapril (Verified Allergy, Severe, Rash, 07/14/16) *MDRO Multi-Drug Resistant Organism (Verified Adverse Reaction, Unknown, ) MRSA (wound) - 2002 MRSA PCR Screens NEGATIVE - 12/31/15 & 01/02/2016 CLEARED BY INFECTION CONTROL Objective . Vital Signs Date Time Temp Pulse Resp B/P Pulse Ox O2 Delivery O2 Flow Rate FiO2 08/02/16 09:02 18 08/02/16 08:00 97.6 67 19 138/70 95 08/02/16 00:00 97.7 87 17 143/69 98 08/01/16 20:00 97.0 84 17 125/66 96 08/01/16 16:00 97.3 70 17 120/62 95 08/01/16 13:23 18 08/01/16 12:00 98.0 86 20 123/75 95 08/01/16 08/01/16 08/02/16 15:00 23:00 07:00 Intake Total 480 ml 240 ml 240 ml Output Total 1300 ml 1200 ml 1300 ml Balance -820 ml -960 ml -1060 ml Intake Oral 480 ml 240 ml 240 ml IV Total 0 ml Output Urine Total 1300 ml 1200 ml 1300 ml # Bowel Movements 0 Imaging Last Impressions Lower Extremity Ultrasound 07/14/16 0550 Signed Impressions: Service Date/Time: Thursday, July 14, 2016 07:37 - CONCLUSION: Normal examination. Shaun Conner MD Foot MRI 07/14/16 0000 Signed Impressions: Service Date/Time: Thursday, July 14, 2016 11:10 - CONCLUSION: 1. Bodies left myelitis involving the second and third metatarsals as well as the cuneiforms. 2. Multilocular abscess is present as described above predominantly between the second and third metatarsals. Cuong Roldan MD Physical Exam GENERAL: NAD SKIN: Warm and moist. No generalized rash HEENT: [place] conjunctivae. No scleral icterus. Moist oral mucosa. NECK: Supple, nontender, no meningeal signs. CARDIOVASCULAR: Regular rate and rhythm without murmurs, gallops, or rubs. RESPIRATORY: Clear to auscultation. GASTROINTESTINAL: Abdomen soft, obese, non-tender, nondistended. . No guarding. MUSCULOSKELETAL: He is status post left BKA in the left lower extremity, with a well-healed stump. Has intact and dry dressing to his RBKA stump NEUROLOGICAL: Non-focal PSYCH: Normal affect, calm and cooperative LINE: PICC with no evidence of infection Assessment & Plan Remarks IMPRESSION Sepsis on adm due to infection R foot resolved DFI R foot with abscess and oste 2nd and 3rd MT - S/P BKA Previous amp R 5th toe and ray resection MT April 2016 Hx previous DFI S/P L BKA Obesity Renal insufficiency, worsened by sepsis It seem that he is not allergic to PCN - he has received Augmentin in past RECOMMENDATION Continue IV PCN - stop when he gets D/C Clinically doing well from ID standpoint I will be available prn Please call if with any new ID issue or question Brenda Watson MD Aug 02, 2016 10:45
[2016-08-02 12:00] VITALS: BP 137/76; PULSE 93; RESP 20; TEMP 97; O2SAT 97
--- NOTE | 2016-08-02 15:00 | PD.CAR.PN ---
CVT Progress Note Subjective/Hospital Course: Consult received Will see patient in am tomorrow Full dictation to follow Myra Landrum 07/25/2016 Patient with osteomyelitis and non-reconstructable infection of the left foot It is the opinion of the podiatry that at this time all options have been exhausted and the only option is to the higher level amputation I agree with podiatry Full consult dictated Will need second opinion from second vascular surgeon per recent [place] policy and I will ask Dr. Evans and Dr. Larios to see the patient and render the same 07/28/16 Patient status post left below-knee amputation This was quite complex procedure in the face of severe edema organized phlebolith thrombosis sequela and lipoma fibrosis with lymph stasis in the left leg Patient however did well dressing is intact and should stay so for next 48 hours We will remove the dressing on and until then patient should have leg elevated to minimize the swelling 07/30/2016 Stump and nice clean and dry healing well No drainage Stitches intact Nothing to add to care at this time stitches will stay in for about 3 weeks 08/02/16 Incision is dry and clean and stump is healing nicely Nothing to add to care Objective: Vital Signs Date Time Temp Pulse Resp B/P Pulse Ox O2 Delivery O2 Flow Rate FiO2 08/02/16 13:39 18 08/02/16 12:00 97.0 93 20 137/76 97 08/02/16 11:26 18 08/02/16 08:00 97.6 67 19 138/70 95 08/02/16 00:00 97.7 87 17 143/69 98 08/01/16 20:00 97.0 84 17 125/66 96 08/01/16 16:00 97.3 70 17 120/62 95 Result Diagram: 07/31/16 0455 07/29/16 0458 Poly Duque MD Aug 02, 2016 15:00
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
[2016-08-02] MEDS ORDERED: DOCU1CAP39 PO (15:58)
[2016-08-02] MEDS ORDERED: FURO1TAB60 PO (15:58)
[2016-08-02] MEDS ORDERED: METH10TA PO (15:58)
[2016-08-02] MEDS ORDERED: DIAZ10TA PO (15:58)
[2016-08-02] MEDS ORDERED: LACT10SO PO (15:58)
[2016-08-02] MEDS ORDERED: GABA400C5 PO (15:58)
[2016-08-02] MEDS ORDERED: LEVEMIR SQ ×2 (15:58)
[2016-08-02] MEDS ORDERED: OXYC-395 PO (15:58)
--- NOTE | 2016-08-02 15:59 | HHI.DCPOC ---
Discharge Care Plan Diagnosis: (1) Cellulitis of right lower extremity (2) Osteomyelitis of foot (3) CHF (congestive heart failure) (4) Acute kidney injury (5) Dehydration (6) HTN (hypertension) (7) Diabetes mellitus (8) Gastroparesis Goals to Promote Your Health * To prevent worsening of your condition and complications * To maintain your health at the optimal level Directions to Meet Your Goals Take your medications as prescribed Follow your dietary instruction Follow activity as directed Keep your appointments as scheduled Take your immunizations and boosters as scheduled If your symptoms worsen call your PCP, if no PCP go to Urgent Care Center or Emergency Room Smoking is Dangerous to Your Health. Avoid second hand smoke Call the 24-hour hour crisis hotline for domestic abuse at Stan Potts MD Aug 02, 2016 15:59
[2016-08-02 16:00] VITALS: BP 119/63; PULSE 84; RESP 19; TEMP 97.4; O2SAT 96
[2016-08-02] MEDS ORDERED: BEDSIDE COMMODE1 MI1 (16:09)
[2016-08-02] MEDS ORDERED: WHEEMIS3 (16:09)
[2016-08-02] MEDS ORDERED: POTASSIUM CHLORIDE 20 MEQ CONTROLLED RELEASE TAB PO ONE (16:15)
[2016-08-02 20:00] VITALS: BP 132/78; PULSE 86; RESP 17; TEMP 97.5; O2SAT 96
[2016-08-02] MEDS: DIAZEPAM 10 MG TAB PO PRN (21:15)
[2016-08-03] VITALS: BP 124/70; PULSE 77; RESP 17; TEMP 96.9; O2SAT 96
[2016-08-03] MEDS: PENICILLIN G SODIUM INJ 3,000,000 UNITS in SODIUM CHLORIDE 0.9% INJ 100 ML IV SCH ×4 (00:20→13:00)
[2016-08-03] MEDS: INSULIN ASPART SUPPLEMENTAL SCALE SQ SCH ×2 (05:39→11:00)
[2016-08-03 08:00] VITALS: BP 136/72; PULSE 77; RESP 16; TEMP 96.5; O2SAT 97
[2016-08-03] MEDS: METHADONE HCL 10 MG TAB PO SCH ×2 (09:23→14:08)
[2016-08-03] MEDS: GABAPENTIN 400 MG CAP PO SCH ×2 (09:23→14:08)
[2016-08-03] MEDS: PANTOPRAZOLE SOD 40 MG DELAYED RELEASE TAB PO SCH (09:23)
[2016-08-03] MEDS: METOCLOPRAMIDE HCL 10 MG TAB PO SCH ×2 (09:24→14:14)
[2016-08-03] MEDS: INSULIN DETEMIR 100 UNITS/ML VIAL SQ SCH (09:24)
[2016-08-03] MEDS: LACTULOSE SYRUP 20 GM/30 ML CUP PO SCH (09:24)
[2016-08-03] MEDS: DOCUSATE SODIUM 100 MG CAP PO SCH (09:24)
[2016-08-03] MEDS: SODIUM CHLORIDE 0.9% FLUSH 10 ML FLUSH IV FLUSH SCH (09:24)
[2016-08-03] MEDS: FUROSEMIDE 40 MG TAB PO SCH (09:24)
[2016-08-03] MEDS: HEPARIN SODIUM - SQ 10,000 UNITS/ML VIAL SQ SCH (09:25)
[2016-08-03 12:00] VITALS: BP 134/77; PULSE 79; RESP 18; TEMP 96.3; O2SAT 97
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
== END 2016-08-03 14:30 | DRG 617 ==
LOC: NEPE 05:18 → NEDA 08:44 → HOCA 13:29 → N05B 07-27 17:41 → N07B 07-27 18:16
PROVIDERS: ADMIT Hospitalist; ATTEND Hospitalist
PROC: 0QBN0ZX Excision of Right Metatarsal, Open Approach, Diagnostic (ICD-10-PCS; 2016-07-15)
PROC: 0J9Q0ZZ Drainage of Right Foot Subcutaneous Tissue and Fascia, Open Approach (ICD-10-PCS; 2016-07-15)
PROC: 02HV33Z Insertion of Infusion Device into Superior Vena Cava, Percutaneous Approach (ICD-10-PCS; 2016-07-19)
PROC: 0Y6H0Z1 Detachment at Right Lower Leg, High, Open Approach (ICD-10-PCS; principal; 2016-07-27 13:57)
PROC: 30253N1 (ICD-10-PCS; 2016-07-30)
DX: E11.69 Type 2 diabetes mellitus with other specified complication (principal); M86.171 Other acute osteomyelitis, right ankle and foot; N17.0 Acute kidney failure with tubular necrosis; K31.84 Gastroparesis; E87.70 Fluid overload, unspecified; E66.01 Morbid (severe) obesity due to excess calories; E11.43 Type 2 diabetes mellitus with diabetic autonomic (poly)neuropathy; E11.52 Type 2 diabetes mellitus with diabetic peripheral angiopathy with gangrene; L03.115 Cellulitis of right lower limb; L02.611 Cutaneous abscess of right foot; G54.6 Phantom limb syndrome with pain; E11.42 Type 2 diabetes mellitus with diabetic polyneuropathy; E86.0 Dehydration; B95.2 Enterococcus as the cause of diseases classified elsewhere; E78.5 Hyperlipidemia, unspecified; G47.33 Obstructive sleep apnea (adult) (pediatric); I10 Essential (primary) hypertension; D64.9 Anemia, unspecified; R60.0 Localized edema; M60.9 Myositis, unspecified; G89.29 Other chronic pain; F17.210 Nicotine dependence, cigarettes, uncomplicated; Z85.828 Personal history of other malignant neoplasm of skin; Z79.4 Long term (current) use of insulin; Z68.34 Body mass index [BMI] 34.0-34.9, adult; Z89.512 Acquired absence of left leg below knee; Z88.8 Allergy status to other drugs, medicaments and biological substances
CPT/HCPCS: 36430; 36569; 71010; 73720; 76937; 80048; 80053; 80202; 81001; 82565; 82948; 83036; 83605; 83735; 84132; 84300; 85007; 85014; 85018; 85025; 85027; 85610; 85652; 85730; 86140; 86850; 86900; 86901; 86920; 87015; 87040; 87070; 87077; 87102; 87116; 87186; 87205; 87206; 88304; 88307; 88311; 93005; 93971; 96365; 96368; 99282; A9577; J0131; J1170; J1642; J1644; J1815; J1940; J2250; J2370; J2405; J2795; J3010; J3370; J7030; J7040; J7050; P9016

== ENCOUNTER 2016-09-23 04:36 | Inpatient (IN) | payer MEDICARE, OTHER ==
[~2016-09-23 04:36] MED LIST changes: +AMLO5TAB2 PO; +BEDSIDE COMMODE1 MI1; -CEFU1TAB43 PO; -CIPR500T93 PO; -COLL30OI3 TOP; -CYCL1TAB29 PO; +DIAZ10TA PO; -DIAZ5TAB PO; -DILA2TAB2; +DOCU1CAP39 PO; -ENAL10TA7 PO; -FLAG250T PO; +FURO1TAB60 PO; -FURO1TAB93 PO; -GABA300C3 PO; +GABA400C5 PO; +LACT10SO PO; +LEVEMIR SQ; -LOSA25TA31 PO; +METH10TA PO; -METH5SOL3 PO; -METO10 PO; +METO10TA PO; -MOBI15TA PO; -NOVOLOGP2 SQ; +OXYC-395 PO; -OXYC10TA8 PO; -PANT20 PO; +PANT20TA2 PO; -POTA10IN2 PO; +POTA10TA8 PO; -SSD1CRE TOP; -TRAD5TAB PO; +WHEEMIS3; -WHEEMIS3 XX; +ZOFR4TAB PO; -ZOFR8TAB PO; -[UNRECOGNIZED DRUG - CODE] PO
[2016-09-23 08:30] VITALS: BP 122/77; PULSE 80; RESP 16; TEMP 96.4; O2SAT 98
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
[2016-09-23 11:28] LABS: ALKALINE PHOSPHATASE 69 U/L (45-117); TOTAL BILIRUBIN ADULT 0.3 MG/DL (0.2-1.0)
[2016-09-23 11:30] LABS: ALT (GPT) 15 U/L (12-78); ANION GAP 7 MEQ/L (5-15); AST (GOT) 14 U/L (15-37); BICARBONATE 28.5 MEQ/L (21.0-32.0); BLOOD UREA NITROGEN 13 MG/DL (7-18); CHLORIDE 106 MEQ/L (98-107); GLOMERULAR FILTRATION RATE 100 ML/MIN (>89); POTASSIUM 4.3 MEQ/L (3.5-5.1); SODIUM (NA) 141 MEQ/L (136-145)
[2016-09-23] MEDS ORDERED: GLUCAGON 1 MG/ML VIAL OTHER PRN (11:30)
[2016-09-23] MEDS ORDERED: DEXTROSE 50% IN WATER 50 ML VIAL(D50) IV PUSH PRN (11:30)
[2016-09-23] MEDS: METOCLOPRAMIDE HCL 10 MG TAB PO SCH ×2 (11:53→16:42)
[2016-09-23] MEDS: METHADONE HCL 10 MG TAB PO SCH ×3 (11:53→21:02)
[2016-09-23] MEDS ORDERED: PROPOFOL 200 MG/20 ML AMP IV ONE (12:00)
[2016-09-23] MEDS ORDERED: NEOSTIGMINE 3 MG/3 ML SYR IV ONE (12:00)
[2016-09-23] MEDS ORDERED: ONDANSETRON HCL 4 MG/2 ML VIAL IV PUSH ONE (12:00)
[2016-09-23] MEDS ORDERED: ePHEDrine/NS 25 MG/5 ML SYR IV ONE (12:00)
[2016-09-23] MEDS ORDERED: HYDROmorphone HCL PF 2 MG/ML VIAL ONE (12:13)
[2016-09-23] MEDS ORDERED: FAMOTIDINE 20 MG/2 ML VIAL ONE (12:13)
[2016-09-23] MEDS ORDERED: MIDAZOLAM HCL 2 MG/2 ML VIAL ONE (12:48)
[2016-09-23] MEDS ORDERED: BUPIVACAINE HCL PF 0.5% 30 ML VIAL ONE (12:55)
[2016-09-23] MEDS ORDERED: BACITRACIN TOP OINT 15 GM TUBE ONE (12:56)
[2016-09-23] MEDS ORDERED: ceFAZolin INJ 1,000 MG VIAL IV ONE (13:50)
[2016-09-23] MEDS ORDERED: *HYDROmorphone PF 1 MG VIAL PERIprocedural Use ONLY ONE (14:31)
[2016-09-23] MEDS ORDERED: MORPHINE SULFATE 4 MG/ML INJ ONE (14:35)
--- NOTE | 2016-09-23 14:39 | PD.CAR.PN ---
CVT Progress Note Subjective/Hospital Course: Patient with dehiscence of the right BKA stump after trauma to the stump and some unconventional therapy by an outside institution Patient underwent debridement of the stump today and placement of the wound VAC Patient will need wound VAC for about 2 weeks after which we will again debridement and secondarily close the stump Patient will have to be very careful not to hit it against anything and to be compliant with his care Objective: Vital Signs Date Time Temp Pulse Resp B/P Pulse Ox O2 Delivery O2 Flow Rate FiO2 09/23/16 14:25 97.5 83 13 140/72 95 Nasal Cannula 3 09/23/16 08:30 96.4 80 16 122/77 98 Labs: Laboratory Tests Test 09/23/16 10:50 Sodium Level 141 MEQ/L (136-145) Potassium Level 4.3 MEQ/L (3.5-5.1) Chloride Level 106 MEQ/L (98-107) Carbon Dioxide Level 28.5 MEQ/L (21.0-32.0) Anion Gap 7 MEQ/L (5-15) Blood Urea Nitrogen 13 MG/DL (7-18) Creatinine 0.83 MG/DL (0.60-1.30) Estimat Glomerular Filtration 100 ML/MIN Rate (>89) Random Glucose 212 MG/DL (74-106) Calcium Level 9.1 MG/DL (8.5-10.1) Total Bilirubin 0.3 MG/DL (0.2-1.0) Aspartate Amino Transf 14 U/L (15-37) (AST/SGOT) Alanine Aminotransferase 15 U/L (12-78) (ALT/SGPT) Alkaline Phosphatase 69 U/L (45-117) Total Protein 6.1 GM/DL (6.4-8.2) Albumin 2.8 GM/DL (3.4-5.0) Result Diagram: 09/23/16 1050 Poly Duque MD Sep 23, 2016 2:39 pm
[2016-09-23] MEDS ORDERED: DO NOT ADM ANY ANTICOAGULANT DRUGS PRN (15:00)
[2016-09-23 16:00] VITALS: BP 135/75; PULSE 82; RESP 18; TEMP 95.6; O2SAT 99
[2016-09-23] MEDS: INSULIN ASPART SUPPLEMENTAL SCALE SQ SCH ×2 (16:00→21:12)
[2016-09-23] MEDS: DIAZEPAM 10 MG TAB PO PRN (16:42)
[2016-09-23] MEDS: ONDANSETRON ODT 4 MG TAB PO PRN (16:44)
[2016-09-23] MEDS: SODIUM CHLOR 0.9% 1000 ML INJ 1,000 ML IV SCH (16:54)
[2016-09-23] MEDS: FUROSEMIDE 40 MG TAB PO SCH (18:00)
[2016-09-23] MEDS: DOCUSATE SODIUM 100 MG CAP PO SCH (21:00)
[2016-09-23] MEDS ORDERED: GABAPENTIN 400 MG CAP PO SCH (21:00)
[2016-09-23] MEDS: GABAPENTIN 400 MG CAP PO SCH (21:02)
[2016-09-23] MEDS: INSULIN DETEMIR 100 UNITS/ML VIAL SQ SCH (21:11)
[2016-09-23 21:23] VITALS: BP 123/63; PULSE 82; RESP 18; TEMP 96.8; O2SAT 97
[2016-09-24] MEDS: SODIUM CHLOR 0.9% 1000 ML INJ 1,000 ML IV SCH ×2 (06:13→10:05)
[2016-09-24] MEDS: INSULIN ASPART SUPPLEMENTAL SCALE SQ SCH ×5 (06:18→20:41)
[2016-09-24 08:00] VITALS: BP 118/76; PULSE 112; RESP 20; TEMP 98.6; O2SAT 93
[2016-09-24] MEDS: LACTULOSE SYRUP 20 GM/30 ML CUP PO SCH (09:00)
[2016-09-24] MEDS: amLODIPine BESYLATE 5 MG TAB PO SCH (09:16)
[2016-09-24] MEDS: PANTOPRAZOLE SOD 20 MG DELAYED RELEASE TAB PO SCH (09:16)
[2016-09-24] MEDS: GABAPENTIN 400 MG CAP PO SCH ×3 (09:16→20:32)
[2016-09-24] MEDS: DOCUSATE SODIUM 100 MG CAP PO SCH ×2 (09:17→20:32)
[2016-09-24] MEDS: METOCLOPRAMIDE HCL 10 MG TAB PO SCH ×3 (09:17→16:37)
[2016-09-24] MEDS: METHADONE HCL 10 MG TAB PO SCH ×4 (09:17→20:34)
[2016-09-24] MEDS: POTASSIUM CHLORIDE 10 MEQ CONTROLLED RELEASE TAB PO SCH (09:17)
[2016-09-24] MEDS: FUROSEMIDE 40 MG TAB PO SCH ×2 (09:17→18:00)
[2016-09-24] MEDS: INSULIN DETEMIR 100 UNITS/ML VIAL SQ SCH ×2 (09:21→20:41)
[2016-09-24 09:30] VITALS: O2SAT 95
--- NOTE | 2016-09-24 09:32 | HHI.PR ---
Subjective Remarks Pt reports that he slept well last night and that his pain is fairly well controlled this morning but states that he thinks his pain medication regimen needs to be changed. He normally takes his Methadone 10mg QID and the Roxicodone 10mg five times daily and we have his Roxicodone written for Q6H PRN Objective Vitals Vital Signs Date Time Temp Pulse Resp B/P Pulse Ox O2 Delivery O2 Flow Rate FiO2 09/24/16 08:00 98.6 112 20 118/76 93 09/23/16 21:23 96.8 82 18 123/63 97 09/23/16 16:30 16 09/23/16 16:00 95.6 82 18 135/75 99 09/23/16 15:01 16 09/23/16 15:00 98.6 80 16 115/76 96 Nasal Cannula 3 09/23/16 14:45 79 16 119/72 95 Nasal Cannula 3 09/23/16 14:30 80 15 127/75 94 Nasal Cannula 3 09/23/16 14:25 97.5 83 13 140/72 95 Nasal Cannula 3 09/23/16 09/23/16 09/24/16 14:59 22:59 06:59 Intake Total 700 ml 410 ml 641 ml Output Total 100 ml 100 ml 225 ml Balance 600 ml 310 ml 416 ml Intake Oral 0 ml IV Total 410 ml 641 ml Other 700 ml Output Urine Total 0 ml 100 ml 225 ml Drainage Total 0 ml 0 ml Estimated Blood Loss 100 ml # Voids 0 # Bowel Movements 0 Result Diagram: 09/23/16 1050 Other Results Laboratory Tests Test 09/23/16 10:50 Sodium Level 141 MEQ/L Potassium Level 4.3 MEQ/L Chloride Level 106 MEQ/L Carbon Dioxide Level 28.5 MEQ/L Anion Gap 7 MEQ/L Blood Urea Nitrogen 13 MG/DL Creatinine 0.83 MG/DL Estimat Glomerular Filtration 100 ML/MIN Rate Random Glucose 212 MG/DL Calcium Level 9.1 MG/DL Total Bilirubin 0.3 MG/DL Aspartate Amino Transf 14 U/L (AST/SGOT) Alanine Aminotransferase 15 U/L (ALT/SGPT) Alkaline Phosphatase 69 U/L Total Protein 6.1 GM/DL Albumin 2.8 GM/DL Objective Remarks General: NAD, AAOx3 Chest: CTA Cardiac: Regular Abd: +BS, soft ND/NT Ext: Bilateral BKA, right BKA with wound vac in place A/P Problem List: (1) Wound dehiscence Status: Acute Plan: - Pt was admitted for RLE cellulitis/osteomyelitis of metatarsal 2 and 3 with associated abscess and myositis in July On 07/15/16 pt went to OR for abscess drainage and bone bx. Culture grew out group d enterococcus. Bone bx indicated acute osteo of the 2nd metatarsal. At that time the right foot infection not improving. He was seen by podiatry and 2 vascular surgeons. and recommended for right bka - Pt underwent right BKA on 07/27/16. - Pt went to snf and then had sutures removed. - He now returns with wound dehiscence of right stump - Pt was seen by Dr. Landrum who knows the patient well - Patient underwent debridement of the stump on 09/23 and placement of the wound VAC - Patient will need wound VAC for about 2 weeks after which he will again require debridement and secondarily close the stump - Patient will have to be very careful not to hit it against anything and to be compliant with his care - NovoLog SSI and resume basal insulin after surgery. - Resume home pain meds. - PT after surgery and decide on disposition. (2) S/P BKA (below knee amputation) bilateral Status: Chronic Plan: see above (3) Diabetes Status: Chronic Plan: see above (4) Gastroparesis Status: Chronic Plan: cont home meds (5) HTN (hypertension) Status: Chronic Plan: cont home meds (6) CHF (congestive heart failure) Status: Chronic Plan: compensated home meds (7) Chronic pain Status: Chronic Plan: cont home meds (8) Anxiety disorder Status: Chronic Assessment and Plan Patient examined. Assessment and plan formulated with Carol Harris PA-C. I agree with the above. s/p debridement. wound vac noted. d/c when ok with DR Landrum and wound vac ordered. [facility]. Carol Harris Sep 24, 2016 09:32 Stan Potts MD Sep 24, 2016 10:39
--- NOTE | 2016-09-24 11:05 | PD.CAR.PN ---
CVT Progress Note Subjective/Hospital Course: Patient with dehiscence of the right BKA stump after trauma to the stump and some unconventional therapy by an outside institution Patient underwent debridement of the stump today and placement of the wound VAC Patient will need wound VAC for about 2 weeks after which we will again debridement and secondarily close the stump Patient will have to be very careful not to hit it against anything and to be compliant with his care 09/24/16 Status post revision and debridement of right below-knee amputation Patient will keep the wound VAC on for about 2 weeks and they're within the bringing him back in to revise again and secondarily close the flap From my point patient can be discharged any time with wound VAC Objective: Vital Signs Date Time Temp Pulse Resp B/P Pulse Ox O2 Delivery O2 Flow Rate FiO2 09/24/16 08:00 98.6 112 20 118/76 93 09/23/16 21:23 96.8 82 18 123/63 97 09/23/16 16:30 16 09/23/16 16:00 95.6 82 18 135/75 99 09/23/16 15:01 16 09/23/16 15:00 98.6 80 16 115/76 96 Nasal Cannula 3 09/23/16 14:45 79 16 119/72 95 Nasal Cannula 3 09/23/16 14:30 80 15 127/75 94 Nasal Cannula 3 09/23/16 14:25 97.5 83 13 140/72 95 Nasal Cannula 3 Result Diagram: 09/23/16 1050 Poly Duque MD Sep 24, 2016 11:05
[2016-09-24 12:00] VITALS: BP 120/76; PULSE 112; RESP 20; TEMP 98.9; O2SAT 95
[2016-09-24 15:00] VITALS: BP 120/76; PULSE 112; RESP 20; TEMP 98.9; O2SAT 95
[2016-09-24 16:38] VITALS: BP 121/72; PULSE 109; RESP 18; TEMP 99.3; O2SAT 95
[2016-09-24 20:00] VITALS: BP 153/70; PULSE 108; RESP 20; TEMP 99.7; O2SAT 94
[2016-09-24] MEDS: DIAZEPAM 10 MG TAB PO PRN (20:48)
[2016-09-25] VITALS: BP 129/69; PULSE 104; RESP 20; TEMP 101.4; O2SAT 96
[2016-09-25] MEDS: ACETAMINOPHEN 500 MG CPLT PO PRN ×2 (00:25→06:44)
[2016-09-25 03:35] LABS: BICARBONATE 26.9 MEQ/L (21.0-32.0); MAGNESIUM 1.5 MG/DL (1.5-2.5); POTASSIUM 5.3 MEQ/L (3.5-5.1)
[2016-09-25 03:36] LABS: AUTOMATED NEUTROPHIL # 11.3 TH/MM3 (1.8-7.7); BASOPHIL # 0.1 TH/MM3 (0-0.2); BASOPHIL % 0.5 % (0.0-2.0); EOSINOPHIL # 0.1 TH/MM3 (0-0.4); EOSINOPHIL % 0.8 % (0.0-4.0); HEMATOCRIT 38.7 % (39.0-51.0); LYMPH % 15.8 % (9.0-44.0); LYMPHOCYTE # 2.7 TH/MM3 (1.0-4.8); MEAN CELL VOLUME 83.3 FL (80.0-100.0); MEAN CORPUSCULAR HEMOGLOBIN 26.6 PG (27.0-34.0); MONO % 17.1 % (0.0-8.0); NEUT % 65.8 % (16.0-70.0); PLATELET COUNT 238 TH/MM3 (150-450); RED BLOOD COUNT 4.64 MIL/MM3 (4.50-5.90); WHITE BLOOD COUNT 17.1 TH/MM3 (4.0-11.0)
[2016-09-25 03:55] VITALS: BP 130/74; PULSE 114; RESP 20; TEMP 100.9; O2SAT 95
[2016-09-25 03:55] LABS: HEMO FLAGS AUTO DIFF
[2016-09-25] MEDS ORDERED: VANCOMYCIN 1,000 MG/NS 250 ML IV ONE ×2 (04:30)
[2016-09-25] MEDS ORDERED: SODIUM CHLOR 0.9% 1000 ML INJ 1,000 ML IV ONE (04:30)
[2016-09-25 04:50] LABS: NEUTROPHIL # MANUAL DIFF 10.3 TH/MM3 (1.8-7.7); PLATELET ESTIMATE SMEAR NORMAL (NORMAL); PLATELET MORPHOLOGY NORMAL (NORMAL); POLYS (SEG NEUTROPHILS) 60 % (16-70); SCAN/DIFF FINAL DIFF MANUAL; WBC DIFF SAMPLE 100
[2016-09-25] MEDS ORDERED: PIPERACIL-TAZO 3.375 GM PREMIX 50 ML IV ONE (05:00)
[2016-09-25 05:03] LABS: BLOOD, URINE NEG (NEG); GLUCOSE,URINE 300 mg/dL (NEG); HYALINE CAST, URINE 9 /lpf (RARE); KETONE, URINE NEG (NEG); MUCUS URINE FEW /lpf (OCC); NITRITE,URINE NEG (NEG); SQUAMOUS EPITHELIAL CELL URINE <1 /hpf (0-5); URINE COLOR YELLOW (YELLW/STRAW)
[2016-09-25 05:12] LABS: COMMENT (UR) CULT NOT INDICATED; CULTURE IF INDICATED CULT NOT INDICATED
[2016-09-25] MEDS: INSULIN ASPART SUPPLEMENTAL SCALE SQ SCH ×4 (06:18→21:00)
--- NOTE | 2016-09-25 06:43 | RADRPT ---
EXAM DATE/TIME: 09/25/2016 06:02 [place] COMPARISON: CHEST SINGLE AP, July 19, 2016, 12:59. INDICATIONS : Pt short of breath. MEDICAL HISTORY : None. SURGICAL HISTORY : None. ENCOUNTER: Subsequent ACUITY: 2 weeks PAIN SCORE: 6/10 LOCATION: Bilateral chest FINDINGS: The cardiac silhouette is enlarged in transverse diameter. There is prominence of the central pulmona ry vasculature with indistinct vascular margins compatible with vascular congestion but no evidence o f overt failure. No pleural effusions are identified. CONCLUSION: 1. Cardiomegaly and findings of vascular congestion without overt failure. Cuong Roldan MD on September 25, 2016 at 6:42 Board Certified Radiologist. This report was verified electronically.
[2016-09-25 08:00] VITALS: BP 128/64; PULSE 104; RESP 18; TEMP 99.5; O2SAT 92
[2016-09-25] MEDS: DIAZEPAM 10 MG TAB PO PRN (08:32)
[2016-09-25] MEDS: METOCLOPRAMIDE HCL 10 MG TAB PO SCH ×3 (08:32→16:20)
[2016-09-25] MEDS: PANTOPRAZOLE SOD 20 MG DELAYED RELEASE TAB PO SCH (08:32)
[2016-09-25] MEDS: DOCUSATE SODIUM 100 MG CAP PO SCH ×2 (08:33→19:55)
[2016-09-25] MEDS: amLODIPine BESYLATE 5 MG TAB PO SCH (08:33)
[2016-09-25] MEDS: METHADONE HCL 10 MG TAB PO SCH ×4 (08:33→19:55)
[2016-09-25] MEDS: INSULIN DETEMIR 100 UNITS/ML VIAL SQ SCH ×2 (08:39→21:00)
[2016-09-25] MEDS: POTASSIUM CHLORIDE 10 MEQ CONTROLLED RELEASE TAB PO SCH (08:39)
[2016-09-25] MEDS: LACTULOSE SYRUP 20 GM/30 ML CUP PO SCH (08:40)
[2016-09-25] MEDS: GABAPENTIN 400 MG CAP PO SCH ×3 (08:43→19:56)
--- NOTE | 2016-09-25 09:27 | MP ---
cc: POLY CRAMER MD DATE OF SURGERY 09/23/2016 PREOPERATIVE DIAGNOSIS Dehiscence of the right BKA stump status post trauma to the stump. POSTOPERATIVE DIAGNOSIS Dehiscence of the right BKA stump status post trauma to the stump. OPERATIVE PROCEDURE Debridement of right BKA stump, irrigation and placement of a wound Vac. SURGEON Poly Cramer MD ANESTHESIA General ESTIMATED BLOOD LOSS 20 cc INDICATIONS FOR PROCEDURE This 45-year-old male who previously lost his left leg now had a right BKA amputation several months ago. The patient did well until he fell, hit a stump, it broke partially open. He then went to some other wound care center or something and had some creams put on which caused more problems. The patient now comes with a swollen stump, redness and was admitted by his primary attending and I recommended debridement. PROCEDURE The patient is prepped and draped in the usual fashion. The anterior portion of the stump has dehisced. Skin, however this is over a month out, the area is debrided in a longitudinal fashion and a segment of skin measuring about 1 x 7 inches is removed. The subcutaneous tissue was cleaned out. Fat appears to be saponified in areas but does not appear to be infected. The area irrigated with copious amounts of saline using the pulse lavage. All the devitalized and ill appearing tissue is now debrided. Muscle appears to be nice and healthy. Cultures are of course obtained. A wound Vac is applied. The patient tolerated the procedure well. Poly CHEN/KOLTON /2:34 PM /9:24 AM
--- NOTE | 2016-09-25 09:44 | HHI.PR ---
Subjective Remarks Pt spiked fevers overnight with Tmax 101.4 Pt denies any cough, congestion, diarrhea or dysuria. He reports that overall he feels quite well today. Objective Vitals Vital Signs Date Time Temp Pulse Resp B/P Pulse Ox O2 Delivery O2 Flow Rate FiO2 09/25/16 08:00 99.5 104 18 128/64 92 09/25/16 03:55 100.9 114 20 130/74 95 09/25/16 00:00 101.4 104 20 129/69 96 09/24/16 20:00 99.7 108 20 153/70 94 09/24/16 16:38 99.3 109 18 121/72 95 09/24/16 15:00 98.9 112 20 120/76 95 09/24/16 12:00 98.9 112 20 120/76 95 09/24/16 09/24/16 09/25/16 15:00 23:00 07:00 Intake Total 360 ml 480 ml 320 ml Output Total 300 ml 250 ml Balance 360 ml 180 ml 70 ml Intake Oral 360 ml 480 ml 320 ml Output Urine Total 300 ml 250 ml # Bowel Movements 0 0 Result Diagram: 09/25/16 0254 09/25/16 0254 Other Results Laboratory Tests Test 09/23/16 09/25/16 09/25/16 10:50 02:54 04:50 Sodium Level 141 MEQ/L 133 MEQ/L Potassium Level 4.3 MEQ/L 5.3 MEQ/L Chloride Level 106 MEQ/L 100 MEQ/L Carbon Dioxide Level 28.5 MEQ/L 26.9 MEQ/L Anion Gap 7 MEQ/L 6 MEQ/L Blood Urea Nitrogen 13 MG/DL 20 MG/DL Creatinine 0.83 MG/DL 1.63 MG/DL Estimat Glomerular Filtration 100 ML/MIN 46 ML/MIN Rate Random Glucose 212 MG/DL 205 MG/DL Calcium Level 9.1 MG/DL 8.4 MG/DL Total Bilirubin 0.3 MG/DL Aspartate Amino Transf 14 U/L (AST/SGOT) Alanine Aminotransferase 15 U/L (ALT/SGPT) Alkaline Phosphatase 69 U/L Total Protein 6.1 GM/DL Albumin 2.8 GM/DL White Blood Count 17.1 TH/MM3 Red Blood Count 4.64 MIL/MM3 Hemoglobin 12.4 GM/DL Hematocrit 38.7 % Mean Corpuscular Volume 83.3 FL Mean Corpuscular Hemoglobin 26.6 PG Mean Corpuscular Hemoglobin 32.0 % Concent Red Cell Distribution Width 16.0 % Platelet Count 238 TH/MM3 Mean Platelet Volume 9.7 FL Neutrophils (%) (Auto) 65.8 % Lymphocytes (%) (Auto) 15.8 % Monocytes (%) (Auto) 17.1 % Eosinophils (%) (Auto) 0.8 % Basophils (%) (Auto) 0.5 % Neutrophils # (Auto) 11.3 TH/MM3 Lymphocytes # (Auto) 2.7 TH/MM3 Monocytes # (Auto) 2.9 TH/MM3 Eosinophils # (Auto) 0.1 TH/MM3 Basophils # (Auto) 0.1 TH/MM3 CBC Comment AUTO DIFF Differential Total Cells 100 Counted Neutrophils % (Manual) 60 % Lymphocytes % 21 % Monocytes % 19 % Neutrophils # (Manual) 10.3 TH/MM3 Differential Comment FINAL DIFF MANUAL Platelet Estimate NORMAL Platelet Morphology Comment NORMAL Red Cell Morphology Comment NORMAL Magnesium Level 1.5 MG/DL Urine Color YELLOW Urine Turbidity CLEAR Urine pH 5.0 Urine Specific [place] 1.014 Urine Protein 30 mg/dL Urine Glucose (UA) 300 mg/dL Urine Ketones NEG mg/dL Urine Occult Blood NEG Urine Nitrite NEG Urine Bilirubin NEG Urine Urobilinogen LESS THAN 2.0 MG/DL Urine Leukocyte Esterase TRACE Urine RBC 3 /hpf Urine WBC 4 /hpf Urine Squamous Epithelial <1 /hpf Cells Urine Hyaline Casts 9 /lpf Urine Mucus FEW /lpf Microscopic Urinalysis Comment CULT NOT INDICATED Imaging Last Impressions Chest X-Ray 09/25/16 0000 Signed Impressions: Service Date/Time: Sunday, September 25, 2016 06:02 - CONCLUSION: 1. Cardiomegaly and findings of vascular congestion without overt failure. Cuong Roldan MD Objective Remarks General: NAD, AAOx3 Chest: CTA Cardiac: Regular Abd: +BS, soft ND/NT Ext: Bilateral BKA, right BKA with wound vac in place A/P Problem List: (1) Wound dehiscence Status: Acute Plan: - Pt was admitted for RLE cellulitis/osteomyelitis of metatarsal 2 and 3 with associated abscess and myositis in July On 07/15/16 pt went to OR for abscess drainage and bone bx. Culture grew out group d enterococcus. Bone bx indicated acute osteo of the 2nd metatarsal. At that time the right foot infection not improving. He was seen by podiatry and 2 vascular surgeons. and recommended for right bka - Pt underwent right BKA on 07/27/16. - Pt went to snf and then had sutures removed. - He now returns with wound dehiscence of right stump - Pt was seen by Dr. Landrum who knows the patient well - Patient underwent debridement of the stump on 09/23 and placement of the wound VAC - Wound culture on 09/23 now growing gram negative davis - Pt spiked fevers overnight last night. - CXR (09/25) --> Cardiomegaly and findings of vascular congestion without overt failure. - UA was negative. - Blood cultures drawn this morning and are pending. - Pt was given a dose of Vancomycin and Zosyn this morning. - Pts labs also noted worsening electrolytes and creatinine of 1.63 today compared to labs on 09/23 with Cr. 0.83. - Pt was given one bag on NS this morning - Repeat labs this afternoon. - Patient will need wound VAC for about 2 weeks after which he will again require debridement and secondarily close the stump - Patient will have to be very careful not to hit it against anything and to be compliant with his care - NovoLog SSI and resume basal insulin. - Resume home pain meds. - PT daily - Constipation precautions - IS - DVT prophylaxis (2) S/P BKA (below knee amputation) bilateral Status: Chronic Plan: see above (3) Diabetes Status: Chronic Plan: see above (4) Gastroparesis Status: Chronic Plan: cont home meds (5) HTN (hypertension) Status: Chronic Plan: cont home meds (6) CHF (congestive heart failure) Status: Chronic Plan: compensated home meds (7) Chronic pain Status: Chronic Plan: cont home meds (8) Anxiety disorder Status: Chronic Assessment and Plan Patient examined. Assessment and plan formulated with Carol Harris PA-C. I agree with the above. pseudomonas and anearobes coming from the wound cx now with fever and clamminess. hold d/c. cont iv abx. wound vac arranged. some cal probably volume related. ivf and hold lasix today. Carol Kaba Sep 25, 2016 09:44 Stan Potts MD Sep 25, 2016 10:55
[2016-09-25] MEDS: LEVOFLOXACIN 500 MG PREMIX INJ 100 ML IV SCH (11:24)
[2016-09-25 12:00] VITALS: BP 107/63; PULSE 91; RESP 20; TEMP 97.3; O2SAT 92
[2016-09-25] MEDS ORDERED: PIPERACIL-TAZO 3.375 GM PREMIX 50 ML IV SCH (12:00)
[2016-09-25] MEDS: metroNIDAZOLE 500 MG INJ 100 ML IV SCH ×2 (12:30→19:59)
[2016-09-25] MEDS: ONDANSETRON ODT 4 MG TAB PO PRN ×2 (13:56→19:55)
[2016-09-25 16:00] VITALS: BP 102/62; PULSE 92; RESP 18; TEMP 97.8; O2SAT 92
[2016-09-25 16:00] LABS: BICARBONATE 25.5 MEQ/L (21.0-32.0); POTASSIUM 4.2 MEQ/L (3.5-5.1)
[2016-09-25] MEDS: SODIUM CHLOR 0.9% 1000 ML INJ 1,000 ML IV SCH (17:38)
[2016-09-25 20:00] VITALS: BP 134/64; PULSE 87; RESP 18; TEMP 99.2; O2SAT 93
[2016-09-26] VITALS (7 sets, daily range): BP systolic 113–148; BP diastolic 60–67; PULSE 93–109; RESP 17–20; TEMP 99.8–100.8; O2SAT 93–94
[2016-09-26] MEDS: metroNIDAZOLE 500 MG INJ 100 ML IV SCH ×2 (04:43→12:09)
[2016-09-26] MEDS: SODIUM CHLOR 0.9% 1000 ML INJ 1,000 ML IV SCH (04:45)
[2016-09-26 05:28] LABS: AUTOMATED NEUTROPHIL # 9.8 TH/MM3 (1.8-7.7); BASOPHIL # 0.1 TH/MM3 (0-0.2); BASOPHIL % 0.5 % (0.0-2.0); EOSINOPHIL # 0.1 TH/MM3 (0-0.4); EOSINOPHIL % 0.7 % (0.0-4.0); HEMATOCRIT 36.2 % (39.0-51.0); HEMO FLAGS DIFF FINAL; LYMPH % 12.3 % (9.0-44.0); LYMPHOCYTE # 1.7 TH/MM3 (1.0-4.8); MEAN CELL VOLUME 82.5 FL (80.0-100.0); MEAN CORPUSCULAR HEMOGLOBIN 27.2 PG (27.0-34.0); NEUT % 72.5 % (16.0-70.0); PLATELET COUNT 221 TH/MM3 (150-450); RED BLOOD COUNT 4.38 MIL/MM3 (4.50-5.90); RED CELL DISTRIBUTION WIDTH 15.8 % (11.6-17.2); WHITE BLOOD COUNT 13.5 TH/MM3 (4.0-11.0)
[2016-09-26 06:01] LABS: BICARBONATE 25.2 MEQ/L (21.0-32.0); POTASSIUM 4.2 MEQ/L (3.5-5.1)
[2016-09-26] MEDS: INSULIN ASPART SUPPLEMENTAL SCALE SQ SCH ×4 (06:01→22:23)
[2016-09-26] MEDS: LACTULOSE SYRUP 20 GM/30 ML CUP PO SCH (09:06)
[2016-09-26] MEDS: METHADONE HCL 10 MG TAB PO SCH ×4 (09:07→19:57)
[2016-09-26] MEDS: amLODIPine BESYLATE 5 MG TAB PO SCH (09:07)
[2016-09-26] MEDS: DOCUSATE SODIUM 100 MG CAP PO SCH ×2 (09:07→19:57)
[2016-09-26] MEDS: METOCLOPRAMIDE HCL 10 MG TAB PO SCH ×3 (09:07→17:17)
[2016-09-26] MEDS: POTASSIUM CHLORIDE 10 MEQ CONTROLLED RELEASE TAB PO SCH (09:07)
[2016-09-26] MEDS: PANTOPRAZOLE SOD 20 MG DELAYED RELEASE TAB PO SCH (09:08)
[2016-09-26] MEDS: GABAPENTIN 400 MG CAP PO SCH ×3 (09:21→19:57)
[2016-09-26] MEDS: INSULIN DETEMIR 100 UNITS/ML VIAL SQ SCH ×2 (09:23→22:24)
[2016-09-26] MEDS: LEVOFLOXACIN 500 MG PREMIX INJ 100 ML IV SCH (12:09)
--- NOTE | 2016-09-26 12:59 | PD.CAR.PN ---
CVT Progress Note Subjective/Hospital Course: Patient with dehiscence of the right BKA stump after trauma to the stump and some unconventional therapy by an outside institution Patient underwent debridement of the stump today and placement of the wound VAC Patient will need wound VAC for about 2 weeks after which we will again debridement and secondarily close the stump Patient will have to be very careful not to hit it against anything and to be compliant with his care 09/24/16 Status post revision and debridement of right below-knee amputation Patient will keep the wound VAC on for about 2 weeks and they're within the bringing him back in to revise again and secondarily close the flap From my point patient can be discharged any time with wound VAC 09/26/16 Stump is clean and dry Wound VAC in place No erythema or redness that would indicate ongoing infection Edges of the wound are well-perfused Wound debridement material grew out Pseudomonas which is not surprising in this situation Patient will require wound VAC for but 2 weeks Objective: Vital Signs Date Time Temp Pulse Resp B/P Pulse Ox O2 Delivery O2 Flow Rate FiO2 09/26/16 12:00 99.8 93 18 113/66 93 09/26/16 11:00 99.8 113/66 09/26/16 08:00 100.8 109 20 148/67 94 09/26/16 07:00 100.8 109 20 148/67 94 09/26/16 06:02 18 09/26/16 00:00 100.5 107 18 120/63 94 09/25/16 20:00 99.2 87 18 134/64 93 09/25/16 16:00 97.8 92 18 102/62 92 Labs: Laboratory Tests Test 09/26/16 04:54 White Blood Count 13.5 TH/MM3 (4.0-11.0) Red Blood Count 4.38 MIL/MM3 (4.50-5.90) Hemoglobin 11.9 GM/DL (13.0-17.0) Hematocrit 36.2 % (39.0-51.0) Mean Corpuscular Volume 82.5 FL (80.0-100.0) Mean Corpuscular Hemoglobin 27.2 PG (27.0-34.0) Mean Corpuscular Hemoglobin 33.0 % Concent (32.0-36.0) Red Cell Distribution Width 15.8 % (11.6-17.2) Platelet Count 221 TH/MM3 (150-450) Mean Platelet Volume 9.6 FL (7.0-11.0) Neutrophils (%) (Auto) 72.5 % (16.0-70.0) Lymphocytes (%) (Auto) 12.3 % (9.0-44.0) Monocytes (%) (Auto) 14.0 % (0.0-8.0) Eosinophils (%) (Auto) 0.7 % (0.0-4.0) Basophils (%) (Auto) 0.5 % (0.0-2.0) Neutrophils # (Auto) 9.8 TH/MM3 (1.8-7.7) Lymphocytes # (Auto) 1.7 TH/MM3 (1.0-4.8) Monocytes # (Auto) 1.9 TH/MM3 (0-0.9) Eosinophils # (Auto) 0.1 TH/MM3 (0-0.4) Basophils # (Auto) 0.1 TH/MM3 (0-0.2) CBC Comment DIFF FINAL Differential Comment Sodium Level 135 MEQ/L (136-145) Potassium Level 4.2 MEQ/L (3.5-5.1) Chloride Level 101 MEQ/L (98-107) Carbon Dioxide Level 25.2 MEQ/L (21.0-32.0) Anion Gap 9 MEQ/L (5-15) Blood Urea Nitrogen 27 MG/DL (7-18) Creatinine 1.39 MG/DL (0.60-1.30) Estimat Glomerular Filtration 55 ML/MIN (>89) Rate Random Glucose 183 MG/DL (74-106) Calcium Level 8.8 MG/DL (8.5-10.1) Result Diagram: 09/26/16 0454 09/26/16 0454 Poly Duque MD Sep 26, 2016 12:59
--- NOTE | 2016-09-26 17:35 | HHI.PR ---
Subjective Remarks has some lethargy earlier that is resolving by holding narcotics Objective Vitals awake and responsive now heart reg lung cta abd s/nt ext right stump with wound vac. no obvious cellulitis prox to it left bka Vital Signs Date Time Temp Pulse Resp B/P Pulse Ox O2 Delivery O2 Flow Rate FiO2 09/26/16 16:00 100.0 99 20 129/64 93 09/26/16 16:00 100.0 99 20 129/64 93 09/26/16 12:00 99.8 93 18 113/66 93 09/26/16 11:00 99.8 113/66 09/26/16 08:00 100.8 109 20 148/67 94 09/26/16 07:00 100.8 109 20 148/67 94 09/26/16 06:02 18 09/26/16 00:00 100.5 107 18 120/63 94 09/25/16 20:00 99.2 87 18 134/64 93 09/25/16 09/25/16 09/26/16 15:00 23:00 07:00 Intake Total 1912 ml 240 ml 1978 ml Output Total 375 ml 300 ml 1200 ml Balance 1537 ml -60 ml 778 ml Intake Oral 800 ml 240 ml 320 ml IV Total 1112 ml 1658 ml Output Urine Total 375 ml 300 ml 1200 ml # Bowel Movements 0 0 0 Result Diagram: 09/26/16 0454 09/26/16 0454 Imaging Last Impressions Chest X-Ray 09/25/16 0000 Signed Impressions: Service Date/Time: Sunday, September 25, 2016 06:02 - CONCLUSION: 1. Cardiomegaly and findings of vascular congestion without overt failure. Cuong Roldan MD A/P Problem List: (1) Wound dehiscence Status: Acute Plan: - Pt was admitted for RLE cellulitis/osteomyelitis of metatarsal 2 and 3 with associated abscess and myositis in July On 07/15/16 pt went to OR for abscess drainage and bone bx. Culture grew out group d enterococcus. Bone bx indicated acute osteo of the 2nd metatarsal. At that time the right foot infection not improving. He was seen by podiatry and 2 vascular surgeons. and recommended for right bka - Pt underwent right BKA on 07/27/16. - Pt went to snf and then had sutures removed. - He now returns with wound dehiscence of right stump - Pt was seen by Dr. Landrum who knows the patient well - Patient underwent debridement of the stump on 09/23 and placement of the wound VAC - Wound culture on 09/23 now growing pseudomonas and anaerobes - CXR (09/25) --> Cardiomegaly and findings of vascular congestion without overt failure. - UA was negative. - Blood cultures ngtd - Patient will need wound VAC for about 2 weeks after which he will again require debridement and secondarily close the stump - Patient will have to be very careful not to hit it against anything and to be compliant with his care cont broad abx. pt still has fevers and may need to adjust abx and/or consult ID lower pain meds as pt was lethargic earlier today. (2) S/P BKA (below knee amputation) bilateral Status: Chronic Plan: see above (3) Diabetes Status: Chronic Plan: see above (4) Gastroparesis Status: Chronic Plan: cont home meds (5) HTN (hypertension) Status: Chronic Plan: cont home meds (6) CHF (congestive heart failure) Status: Chronic Plan: compensated home meds (7) Chronic pain Status: Chronic Plan: cont home meds (8) Anxiety disorder Status: Chronic Stan Potts MD Sep 26, 2016 17:35
[2016-09-26] MEDS: PIPERACIL-TAZO 3.375 GM PREMIX 50 ML IV SCH ×2 (18:08→23:58)
[2016-09-26] MEDS: ACETAMINOPHEN 500 MG CPLT PO PRN (19:57)
[2016-09-27] VITALS (7 sets, daily range): BP systolic 109–121; BP diastolic 62–69; PULSE 86–96; RESP 17–20; TEMP 97–98.3; O2SAT 92–96
[2016-09-27] MEDS: PIPERACIL-TAZO 3.375 GM PREMIX 50 ML IV SCH ×3 (05:04→17:22)
[2016-09-27] MEDS: INSULIN ASPART SUPPLEMENTAL SCALE SQ SCH ×4 (05:08→21:28)
[2016-09-27] MEDS: PANTOPRAZOLE SOD 20 MG DELAYED RELEASE TAB PO SCH (08:05)
[2016-09-27] MEDS: POTASSIUM CHLORIDE 10 MEQ CONTROLLED RELEASE TAB PO SCH (08:05)
[2016-09-27] MEDS: LACTULOSE SYRUP 20 GM/30 ML CUP PO SCH (08:05)
[2016-09-27] MEDS: amLODIPine BESYLATE 5 MG TAB PO SCH (08:05)
[2016-09-27] MEDS: METOCLOPRAMIDE HCL 10 MG TAB PO SCH ×3 (08:05→17:23)
[2016-09-27] MEDS: DOCUSATE SODIUM 100 MG CAP PO SCH ×2 (08:05→21:22)
[2016-09-27] MEDS: INSULIN DETEMIR 100 UNITS/ML VIAL SQ SCH ×2 (08:06→21:28)
[2016-09-27] MEDS: GABAPENTIN 400 MG CAP PO SCH ×3 (08:09→21:21)
[2016-09-27] MEDS: METHADONE HCL 10 MG TAB PO SCH ×4 (08:10→21:25)
[2016-09-27 10:34] LABS: AUTOMATED NEUTROPHIL # 8.5 TH/MM3 (1.8-7.7); BASOPHIL % 0.3 % (0.0-2.0); EOSINOPHIL # 0.1 TH/MM3 (0-0.4); EOSINOPHIL % 0.9 % (0.0-4.0); HEMATOCRIT 33.9 % (39.0-51.0); HEMO FLAGS DIFF FINAL; LYMPH % 8.1 % (9.0-44.0); LYMPHOCYTE # 0.9 TH/MM3 (1.0-4.8); MEAN CELL VOLUME 82.2 FL (80.0-100.0); MEAN CORPUSCULAR HEMOGLOBIN 26.8 PG (27.0-34.0); MEAN CORPUSCULAR HGB CONC 32.6 % (32.0-36.0); MONO % 15.6 % (0.0-8.0); NEUT % 75.1 % (16.0-70.0); PLATELET COUNT 201 TH/MM3 (150-450); RED BLOOD COUNT 4.12 MIL/MM3 (4.50-5.90); RED CELL DISTRIBUTION WIDTH 15.3 % (11.6-17.2); WHITE BLOOD COUNT 11.3 TH/MM3 (4.0-11.0)
[2016-09-27 10:53] LABS: BICARBONATE 23.9 MEQ/L (21.0-32.0); POTASSIUM 4.5 MEQ/L (3.5-5.1)
[2016-09-27] MEDS: LEVOFLOXACIN 500 MG PREMIX INJ 100 ML IV SCH (12:55)
--- NOTE | 2016-09-27 14:25 | HHI.PR ---
Subjective Remarks more awake and alert. no fever so far today Objective Vitals heart reg lung cta abd s/nt ext right bka/stump wound vac Vital Signs Date Time Temp Pulse Resp B/P Pulse Ox O2 Delivery O2 Flow Rate FiO2 09/27/16 12:00 98.3 96 18 116/62 94 09/27/16 11:00 121/69 09/27/16 08:11 97.0 90 20 121/69 92 09/27/16 08:11 97.0 90 20 121/69 92 09/27/16 00:00 98.2 86 17 121/62 96 09/26/16 20:56 20 09/26/16 20:56 20 09/26/16 20:00 100.2 102 17 135/60 94 09/26/16 16:00 100.0 99 20 129/64 93 09/26/16 16:00 100.0 99 20 129/64 93 09/26/16 09/26/16 09/27/16 15:00 23:00 07:00 Intake Total 900 ml 1140 ml 1961 ml Output Total 730 ml Balance 900 ml 1140 ml 1231 ml Intake Oral 1140 ml 240 ml IV Total 900 ml 1721 ml Output Urine Total 700 ml Drainage Total 30 ml # Voids 2 Result Diagram: 09/27/16 0949 09/27/16 0949 Imaging Last Impressions Chest X-Ray 09/25/16 0000 Signed Impressions: Service Date/Time: Sunday, September 25, 2016 06:02 - CONCLUSION: 1. Cardiomegaly and findings of vascular congestion without overt failure. Cuong Roldan MD A/P Problem List: (1) Wound dehiscence Status: Acute Plan: - Pt was admitted for RLE cellulitis/osteomyelitis of metatarsal 2 and 3 with associated abscess and myositis in July On 07/15/16 pt went to OR for abscess drainage and bone bx. Culture grew out group d enterococcus. Bone bx indicated acute osteo of the 2nd metatarsal. At that time the right foot infection not improving. He was seen by podiatry and 2 vascular surgeons. and recommended for right bka - Pt underwent right BKA on 07/27/16. - Pt went to snf and then had sutures removed. - He now returns with wound dehiscence of right stump - Pt was seen by Dr. Landrum who knows the patient well - Patient underwent debridement of the stump on 09/23 and placement of the wound VAC - Wound culture on 09/23 now growing pseudomonas and anaerobes - CXR (09/25) --> Cardiomegaly and findings of vascular congestion without overt failure. - UA was negative. - Blood cultures ngtd - Patient will need wound VAC for about 2 weeks after which he will again require debridement and secondarily close the stump - Patient will have to be very careful not to hit it against anything and to be compliant with his care cont broad abx. Pt had persistent fever until 09/26 when abx broadened back to zosyn. monitor clinical course and inspect the surgical wound when wound vac exchanged tomorrow. stop ivf as cal better. resume diuretic when appropriate. nursing holding some doses of narcotic pain meds when pt gets lethargic. (2) S/P BKA (below knee amputation) bilateral Status: Chronic Plan: see above (3) Diabetes Status: Chronic Plan: see above (4) Gastroparesis Status: Chronic Plan: cont home meds (5) HTN (hypertension) Status: Chronic Plan: cont home meds (6) CHF (congestive heart failure) Status: Chronic Plan: compensated home meds (7) Chronic pain Status: Chronic Plan: cont home meds (8) Anxiety disorder Status: Chronic Stan Potts MD Sep 27, 2016 14:25
[2016-09-28] VITALS: BP 102/61; PULSE 72; RESP 17; TEMP 96.8; O2SAT 96
[2016-09-28] MEDS: PIPERACIL-TAZO 3.375 GM PREMIX 50 ML IV SCH ×3 (01:07→11:55)
[2016-09-28] MEDS: INSULIN ASPART SUPPLEMENTAL SCALE SQ SCH ×4 (04:46→21:18)
[2016-09-28 07:50] VITALS: BP 132/73; PULSE 88; RESP 19; TEMP 98.7; O2SAT 95
[2016-09-28] MEDS: LACTULOSE SYRUP 20 GM/30 ML CUP PO SCH (09:00)
[2016-09-28] MEDS: METHADONE HCL 10 MG TAB PO SCH ×4 (09:13→21:15)
[2016-09-28] MEDS: DOCUSATE SODIUM 100 MG CAP PO SCH ×2 (09:13→21:14)
[2016-09-28] MEDS: amLODIPine BESYLATE 5 MG TAB PO SCH (09:14)
[2016-09-28] MEDS: METOCLOPRAMIDE HCL 10 MG TAB PO SCH ×3 (09:14→16:26)
[2016-09-28] MEDS: POTASSIUM CHLORIDE 10 MEQ CONTROLLED RELEASE TAB PO SCH (09:14)
[2016-09-28] MEDS: PANTOPRAZOLE SOD 20 MG DELAYED RELEASE TAB PO SCH (09:14)
[2016-09-28] MEDS: INSULIN DETEMIR 100 UNITS/ML VIAL SQ SCH ×2 (09:16→21:00)
[2016-09-28] MEDS: GABAPENTIN 400 MG CAP PO SCH ×3 (09:21→21:15)
--- NOTE | 2016-09-28 11:24 | HHI.PR ---
Subjective Remarks Pt had wound vac changed today and wound looks good with good granulation tissue noted and some slight bleeding. Pt without any specific complaints. Nurse reports that the pt took a dose of Imodium that he had from his home medications because he didn't want to have a BM because he was having difficulty transitioning to the bedside commode. Objective Vitals Vital Signs Date Time Temp Pulse Resp B/P Pulse Ox O2 Delivery O2 Flow Rate FiO2 09/28/16 07:50 98.7 88 19 132/73 95 09/28/16 00:00 96.8 72 17 102/61 96 09/27/16 22:30 18 09/27/16 20:00 97.5 88 17 109/66 95 09/27/16 16:00 98.0 96 18 118/66 94 09/27/16 15:00 98.3 96 18 116/62 94 09/27/16 12:00 98.3 96 18 116/62 94 09/27/16 09/27/16 09/28/16 15:00 23:00 07:00 Intake Total 1914 ml 1040 ml 1040 ml Output Total 3750 ml 1050 ml 1100 ml Balance -1836 ml -10 ml -60 ml Intake Oral 960 ml 240 ml 240 ml IV Total 954 ml 800 ml 800 ml Output Urine Total 3700 ml 1050 ml 1100 ml Drainage Total 50 ml 0 ml 0 ml # Voids 5 Result Diagram: 09/27/16 0949 09/27/16 0949 Other Results Laboratory Tests Test 09/27/16 09:49 White Blood Count 11.3 TH/MM3 Red Blood Count 4.12 MIL/MM3 Hemoglobin 11.0 GM/DL Hematocrit 33.9 % Mean Corpuscular Volume 82.2 FL Mean Corpuscular Hemoglobin 26.8 PG Mean Corpuscular Hemoglobin 32.6 % Concent Red Cell Distribution Width 15.3 % Platelet Count 201 TH/MM3 Mean Platelet Volume 9.7 FL Neutrophils (%) (Auto) 75.1 % Lymphocytes (%) (Auto) 8.1 % Monocytes (%) (Auto) 15.6 % Eosinophils (%) (Auto) 0.9 % Basophils (%) (Auto) 0.3 % Neutrophils # (Auto) 8.5 TH/MM3 Lymphocytes # (Auto) 0.9 TH/MM3 Monocytes # (Auto) 1.8 TH/MM3 Eosinophils # (Auto) 0.1 TH/MM3 Basophils # (Auto) 0.0 TH/MM3 CBC Comment DIFF FINAL Differential Comment Sodium Level 138 MEQ/L Potassium Level 4.5 MEQ/L Chloride Level 107 MEQ/L Carbon Dioxide Level 23.9 MEQ/L Anion Gap 7 MEQ/L Blood Urea Nitrogen 20 MG/DL Creatinine 1.05 MG/DL Estimat Glomerular Filtration 76 ML/MIN Rate Random Glucose 192 MG/DL Calcium Level 8.9 MG/DL Imaging Last Impressions Chest X-Ray 09/25/16 0000 Signed Impressions: Service Date/Time: Wednesday, September 25, 2016 06:02 - CONCLUSION: 1. Cardiomegaly and findings of vascular congestion without overt failure. Cuong Roldan MD Objective Remarks General: NAD, AAOx3 Chest: CTA Cardiac: Regular Abd: +BS, soft ND/NT Ext: Bilateral BKA, right stump wound with good granulation tissue noted A/P Problem List: (1) Wound dehiscence Status: Acute Plan: - Pt was admitted for RLE cellulitis/osteomyelitis of metatarsal 2 and 3 with associated abscess and myositis in July On 07/15/16 pt went to OR for abscess drainage and bone bx. Culture grew out group d enterococcus. Bone bx indicated acute osteo of the 2nd metatarsal. At that time the right foot infection not improving. He was seen by podiatry and 2 vascular surgeons. and recommended for right bka - Pt underwent right BKA on 07/27/16. - Pt went to snf and then had sutures removed. - He now returns with wound dehiscence of right stump - Pt was seen by Dr. Landrum who knows the patient well - Patient underwent debridement of the stump on 09/23 and placement of the wound VAC - Pt developed a fever on 09/25 - Wound culture on 09/23 grew out pseudomonas and anaerobes - CXR (09/25) --> Cardiomegaly and findings of vascular congestion without overt failure. - UA was negative. - Blood cultures (09/25) with NGTD - Pt was started on Levaquin on 09/25. Pt had persistent fever until 09/26 when abx broadened with addition of Zosyn. - Monitor clinical course. The surgical site with good granulation tissue noted. Wound Vac ordered to be changed every Wednesday and per nursing staff. - RODERICK improving. - Change IV Levaquin to po daily x 10 days. - Stop IV Zosyn today - Resume diuretic when appropriate. - Nursing staff holding some doses of narcotic pain meds when pt gets lethargic. - PT evaluation today - Patient will need wound VAC for about 2 weeks after which he will again require debridement and secondarily close the stump - Patient will have to be very careful not to hit it against anything and to be compliant with his care (2) S/P BKA (below knee amputation) bilateral Status: Chronic Plan: - See above (3) Diabetes Status: Chronic Plan: - Levemir 30 units in AM and 15 units in PM - NovoLog SSI (4) Gastroparesis Status: Chronic Plan: - Cont home meds (5) HTN (hypertension) Status: Chronic Plan: - Cont home meds (6) CHF (congestive heart failure) Status: Chronic Plan: - Currently compensated - Cont. home meds (7) Chronic pain Status: Chronic Plan: - Cont home meds (8) Anxiety disorder Status: Chronic Assessment and Plan Patient examined. Assessment and plan formulated with Carol Harris PA-C. I agree with the above. Problem Qualifiers (1) Diabetes: Carol Harris Sep 28, 2016 11:24 Keaton Zacarias DO Sep 30, 2016 11:16
[2016-09-28] MEDS: LEVOFLOXACIN 500 MG PREMIX INJ 100 ML IV SCH (11:57)
[2016-09-28 12:00] VITALS: BP 130/64; PULSE 83; RESP 20; TEMP 97.6; O2SAT 96
[2016-09-28] MEDS ORDERED: HYDROmorphone HCL PF 1 MG/ML VIAL SQ ONE (15:00)
--- NOTE | 2016-09-28 15:34 | PD.WCN.NOT ---
Neg Pressure Wound Therapy Wound Location Wound Location: Right BKA Wound Description Length: 6.3cm Width: 16.7cm Depth: 1.5cm Wound bed appearance: Vascular, ~80% granulation tissue and ~20% adipose tissue. Periwound appearance: Other (Noted with irritation superiorly from black granufoam contact with periwound from previous VAC application.) Settings Suction: 125 mmHg, Continuous Intensity: Low Other Information: Windowpaned Foam type: Black Number of pieces: 2 Additonal Information Wound was cleansed with NS and gauze. Periwound prepped with skin prep before applying surrounding drape to protect skin from contact with granufoam. 2 pieces of black granufoam used in vascular granulating wound bed. Wound was noted without odor and minimal vascular coagulating wound bed. Sensitrac pad placed over center of wound bed on top of granufoam. Wound VAC settings @ 125mmHg low continuous suction with minimal leak noted (well within good suction range without alarming) and working properly. Next wound VAC change scheduled for 10/01/16. Patient tolerated VAC change well with pre medication. Sandra Berger [facility] Sep 28, 2016 15:34
[2016-09-28 16:00] VITALS: BP 118/67; PULSE 82; RESP 20; TEMP 98.1; O2SAT 95
[2016-09-28 20:00] VITALS: BP 118/74; PULSE 80; RESP 20; TEMP 97.8; O2SAT 97
[2016-09-29] VITALS: BP 120/75; PULSE 84; RESP 20; TEMP 97.6; O2SAT 95
[2016-09-29] MEDS: INSULIN ASPART SUPPLEMENTAL SCALE SQ SCH ×4 (05:47→22:04)
[2016-09-29 06:27] LABS: AUTOMATED NEUTROPHIL # 5.4 TH/MM3 (1.8-7.7); BASOPHIL # 0.1 TH/MM3 (0-0.2); BASOPHIL % 0.8 % (0.0-2.0); EOSINOPHIL # 0.2 TH/MM3 (0-0.4); EOSINOPHIL % 2.3 % (0.0-4.0); HEMATOCRIT 33.3 % (39.0-51.0); HEMO FLAGS DIFF FINAL; LYMPH % 17.6 % (9.0-44.0); LYMPHOCYTE # 1.6 TH/MM3 (1.0-4.8); MEAN CELL VOLUME 83.1 FL (80.0-100.0); MEAN CORPUSCULAR HEMOGLOBIN 26.5 PG (27.0-34.0); MEAN CORPUSCULAR HGB CONC 31.8 % (32.0-36.0); MONO % 19.6 % (0.0-8.0); NEUT % 59.7 % (16.0-70.0); PLATELET COUNT 209 TH/MM3 (150-450); RED BLOOD COUNT 4.01 MIL/MM3 (4.50-5.90); RED CELL DISTRIBUTION WIDTH 15.5 % (11.6-17.2); WHITE BLOOD COUNT 9.1 TH/MM3 (4.0-11.0)
[2016-09-29 06:55] LABS: BICARBONATE 28.3 MEQ/L (21.0-32.0); MAGNESIUM 1.4 MG/DL (1.5-2.5); POTASSIUM 4.3 MEQ/L (3.5-5.1)
[2016-09-29] MEDS: amLODIPine BESYLATE 5 MG TAB PO SCH (07:55)
[2016-09-29] MEDS: LEVOFLOXACIN 500 MG TAB PO SCH (07:55)
[2016-09-29] MEDS: POTASSIUM CHLORIDE 10 MEQ CONTROLLED RELEASE TAB PO SCH (07:55)
[2016-09-29] MEDS: DOCUSATE SODIUM 100 MG CAP PO SCH ×2 (07:55→21:52)
[2016-09-29] MEDS: PANTOPRAZOLE SOD 20 MG DELAYED RELEASE TAB PO SCH (07:55)
[2016-09-29] MEDS: LACTULOSE SYRUP 20 GM/30 ML CUP PO SCH (07:55)
[2016-09-29] MEDS: METHADONE HCL 10 MG TAB PO SCH ×4 (07:56→21:52)
[2016-09-29] MEDS: GABAPENTIN 400 MG CAP PO SCH ×3 (07:59→21:53)
[2016-09-29] MEDS: INSULIN DETEMIR 100 UNITS/ML VIAL SQ SCH ×2 (07:59→22:04)
[2016-09-29] MEDS: METOCLOPRAMIDE HCL 10 MG TAB PO SCH ×3 (07:59→16:44)
[2016-09-29 08:00] VITALS: BP 108/61; PULSE 72; RESP 14; TEMP 97.7; O2SAT 94
[2016-09-29] MEDS: ONDANSETRON ODT 4 MG TAB PO PRN (08:06)
--- NOTE | 2016-09-29 10:55 | PD.CAR.PN ---
CVT Progress Note Subjective/Hospital Course: Patient with dehiscence of the right BKA stump after trauma to the stump and some unconventional therapy by an outside institution Patient underwent debridement of the stump today and placement of the wound VAC Patient will need wound VAC for about 2 weeks after which we will again debridement and secondarily close the stump Patient will have to be very careful not to hit it against anything and to be compliant with his care 09/24/16 Status post revision and debridement of right below-knee amputation Patient will keep the wound VAC on for about 2 weeks and they're within the bringing him back in to revise again and secondarily close the flap From my point patient can be discharged any time with wound VAC 09/26/16 Stump is clean and dry Wound VAC in place No erythema or redness that would indicate ongoing infection Edges of the wound are well-perfused Wound debridement material grew out Pseudomonas which is not surprising in this situation Patient will require wound VAC for but 2 weeks 09/29/16 Wound VAC changed and there is excellent granulation tissue underlying it with no signs of active infection Patient is quite noncompliant with his care refuses to get out of bed work with physical therapy or transition Patient took his own medication from home to stopped having bowel movements because he didn't feel like transitioning to the commode Have discussed this with patient Wound VAC will stay on for probably another week at which point we'll go back and try to close the stump by secondary intention Patient is still at high risk of losing the leg above the knee Objective: Vital Signs Date Time Temp Pulse Resp B/P Pulse Ox O2 Delivery O2 Flow Rate FiO2 09/29/16 08:00 97.7 72 14 108/61 94 09/29/16 00:00 97.6 84 20 120/75 95 09/28/16 20:00 97.8 80 20 118/74 97 09/28/16 16:00 98.1 82 20 118/67 95 09/28/16 12:00 97.6 83 20 130/64 96 Labs: Laboratory Tests Test 09/29/16 05:48 White Blood Count 9.1 TH/MM3 (4.0-11.0) Red Blood Count 4.01 MIL/MM3 (4.50-5.90) Hemoglobin 10.6 GM/DL (13.0-17.0) Hematocrit 33.3 % (39.0-51.0) Mean Corpuscular Volume 83.1 FL (80.0-100.0) Mean Corpuscular Hemoglobin 26.5 PG (27.0-34.0) Mean Corpuscular Hemoglobin 31.8 % Concent (32.0-36.0) Red Cell Distribution Width 15.5 % (11.6-17.2) Platelet Count 209 TH/MM3 (150-450) Mean Platelet Volume 9.3 FL (7.0-11.0) Neutrophils (%) (Auto) 59.7 % (16.0-70.0) Lymphocytes (%) (Auto) 17.6 % (9.0-44.0) Monocytes (%) (Auto) 19.6 % (0.0-8.0) Eosinophils (%) (Auto) 2.3 % (0.0-4.0) Basophils (%) (Auto) 0.8 % (0.0-2.0) Neutrophils # (Auto) 5.4 TH/MM3 (1.8-7.7) Lymphocytes # (Auto) 1.6 TH/MM3 (1.0-4.8) Monocytes # (Auto) 1.8 TH/MM3 (0-0.9) Eosinophils # (Auto) 0.2 TH/MM3 (0-0.4) Basophils # (Auto) 0.1 TH/MM3 (0-0.2) CBC Comment DIFF FINAL Differential Comment Sodium Level 138 MEQ/L (136-145) Potassium Level 4.3 MEQ/L (3.5-5.1) Chloride Level 105 MEQ/L (98-107) Carbon Dioxide Level 28.3 MEQ/L (21.0-32.0) Anion Gap 5 MEQ/L (5-15) Blood Urea Nitrogen 16 MG/DL (7-18) Creatinine 0.99 MG/DL (0.60-1.30) Estimat Glomerular Filtration 81 ML/MIN (>89) Rate Random Glucose 176 MG/DL (74-106) Calcium Level 8.3 MG/DL (8.5-10.1) Magnesium Level 1.4 MG/DL (1.5-2.5) Result Diagram: 09/29/16 0548 09/29/16 0548 Poly Duque MD Sep 29, 2016 10:55
[2016-09-29 12:00] VITALS: BP 133/67; PULSE 80; RESP 17; TEMP 97; O2SAT 96
--- NOTE | 2016-09-29 13:55 | HHI.PR ---
Subjective Remarks No specific complaints today Pt just got some pain medication and is a bit drowsy. Objective Vitals Vital Signs Date Time Temp Pulse Resp B/P Pulse Ox O2 Delivery O2 Flow Rate FiO2 09/29/16 12:00 97.0 80 17 133/67 96 09/29/16 08:00 97.7 72 14 108/61 94 09/29/16 00:00 97.6 84 20 120/75 95 09/28/16 20:00 97.8 80 20 118/74 97 09/28/16 16:00 98.1 82 20 118/67 95 09/28/16 09/28/16 09/29/16 15:00 23:00 07:00 Intake Total 3049 ml 744 ml 240 ml Output Total 925 ml 100 ml 525 ml Balance 2124 ml 644 ml -285 ml Intake Oral 1080 ml 240 ml 240 ml IV Total 1969 ml 504 ml 0 ml Output Urine Total 900 ml 525 ml Drainage Total 25 ml 100 ml 0 ml # Voids 0 # Bowel Movements 1 0 0 Result Diagram: 09/29/16 0548 09/29/16 0548 Imaging Last Impressions Chest X-Ray 09/25/16 0000 Signed Impressions: Service Date/Time: Sunday, September 25, 2016 06:02 - CONCLUSION: 1. Cardiomegaly and findings of vascular congestion without overt failure. Cuong Roldan MD Objective Remarks General: NAD, AAOx3 Chest: CTA Cardiac: Regular Abd: +BS, soft ND/NT Ext: Bilateral BKA, right stump wound with wound vac in place A/P Problem List: (1) Wound dehiscence Status: Acute Plan: - Pt was admitted for RLE cellulitis/osteomyelitis of metatarsal 2 and 3 with associated abscess and myositis in July On 07/15/16 pt went to OR for abscess drainage and bone bx. Culture grew out group d enterococcus. Bone bx indicated acute osteo of the 2nd metatarsal. At that time the right foot infection not improving. He was seen by podiatry and 2 vascular surgeons. and recommended for right bka - Pt underwent right BKA on 07/27/16. - Pt went to snf and then had sutures removed. - He now returns with wound dehiscence of right stump - Pt was seen by Dr. Landrum who knows the patient well - Patient underwent debridement of the stump on 09/23 and placement of the wound VAC - Pt developed a fever on 09/25 - Wound culture on 09/23 grew out pseudomonas and anaerobes - CXR (09/25) --> Cardiomegaly and findings of vascular congestion without overt failure. - UA was negative. - Blood cultures (09/25) with NGTD - Pt was started on Levaquin on 09/25. Pt had persistent fever until 09/26 when abx broadened with addition of Zosyn. - Monitor clinical course. The surgical site with good granulation tissue noted. Wound Vac ordered to be changed every Wednesday and per nursing staff. - RODERICK improving. - Change IV Levaquin to po daily x 10 days. - Stop IV Zosyn today - Resume diuretic when appropriate. - Nursing staff holding some doses of narcotic pain meds when pt gets lethargic. - PT evaluation today - Patient will need wound VAC for about 2 weeks after which he will again require debridement and secondarily close the stump - Patient will have to be very careful not to hit it against anything and to be compliant with his care (2) S/P BKA (below knee amputation) bilateral Status: Chronic Plan: - See above (3) Diabetes Status: Chronic Plan: - Levemir 30 units in AM and 15 units in PM - NovoLog SSI (4) Gastroparesis Status: Chronic Plan: - Cont home meds (5) HTN (hypertension) Status: Chronic Plan: - Cont home meds (6) CHF (congestive heart failure) Status: Chronic Plan: - Currently compensated - Cont. home meds (7) Chronic pain Status: Chronic Plan: - Cont home meds (8) Anxiety disorder Status: Chronic Assessment and Plan Patient examined. Assessment and plan formulated with Carol Harris PA-C. I agree with the above. Problem Qualifiers (1) Diabetes: Carol Harris Sep 29, 2016 13:55 Keaton Zacarias DO Sep 30, 2016 11:17
--- NOTE | 2016-09-29 14:06 | HHI.FF ---
Face to Face Verification Diagnosis: (1) Wound dehiscence (2) S/P BKA (below knee amputation) bilateral (3) Diabetes (4) HTN (hypertension) (5) CHF (congestive heart failure) Physical Therapy Order: Evaluate and Treat Home Health Nursing Order: Wound care and dressing changes Instructions: see wound vac orders per Dr. Duque I have seen patient Carlitos Randhawa on 09/29/16. My clinical findings support the need for the requested home health care services because: Ltd mobility - disease progression Deconditioned w/ increased weakness High risk of falls Infection w/ risk of complications I certify that my clinical findings support that this patient is homebound because: Post-op weakness Unsteady gait/balance Carol Harris Sep 29, 2016 14:06 Keaton Zacarias DO Sep 30, 2016 11:24
--- NOTE | 2016-09-29 14:07 | HHI.DCPOC ---
Discharge Care Plan Diagnosis: (1) Wound dehiscence (2) S/P BKA (below knee amputation) bilateral (3) Diabetes mellitus (4) HTN (hypertension) (5) CHF (congestive heart failure) (6) Chronic pain Goals to Promote Your Health * To prevent worsening of your condition and complications * To maintain your health at the optimal level Directions to Meet Your Goals Take your medications as prescribed Follow your dietary instruction Follow activity as directed Keep your appointments as scheduled Take your immunizations and boosters as scheduled If your symptoms worsen call your PCP, if no PCP go to Urgent Care Center or Emergency Room Smoking is Dangerous to Your Health. Avoid second hand smoke Call the 24-hour hour crisis hotline for domestic abuse at Carol Harris Sep 29, 2016 14:07 Keaton Zacarias DO Oct 02, 2016 23:41
[2016-09-29] MEDS: NYSTATIN 100,000 U/GM PWD 15 GM BTL TOPICAL SCH ×2 (14:51→22:00)
[2016-09-29] MEDS: MAGNESIUM SULFATE 1 GM PREMIX 100 ML IV SCH ×2 (14:51→15:52)
[2016-09-29 16:00] VITALS: BP 137/73; PULSE 82; RESP 18; TEMP 96.6; O2SAT 99
[2016-09-29] MEDS: FUROSEMIDE 40 MG TAB PO SCH (16:43)
[2016-09-29 20:00] VITALS: BP 119/86; PULSE 82; RESP 16; TEMP 98.1; O2SAT 96
[2016-09-30] VITALS: BP 112/62; PULSE 82; RESP 18; TEMP 97.4; O2SAT 94
[2016-09-30 05:32] LABS: BICARBONATE 29.3 MEQ/L (21.0-32.0); MAGNESIUM 1.6 MG/DL (1.5-2.5); POTASSIUM 3.9 MEQ/L (3.5-5.1)
[2016-09-30] MEDS: NYSTATIN 100,000 U/GM PWD 15 GM BTL TOPICAL SCH (06:25)
[2016-09-30] MEDS: INSULIN ASPART SUPPLEMENTAL SCALE SQ SCH ×2 (06:30→11:24)
[2016-09-30 08:00] VITALS: BP 108/63; PULSE 69; RESP 19; TEMP 96.9; O2SAT 94
[2016-09-30] MEDS: amLODIPine BESYLATE 5 MG TAB PO SCH (08:27)
[2016-09-30] MEDS: PANTOPRAZOLE SOD 20 MG DELAYED RELEASE TAB PO SCH (08:27)
[2016-09-30] MEDS: FUROSEMIDE 40 MG TAB PO SCH (08:27)
[2016-09-30] MEDS: GABAPENTIN 400 MG CAP PO SCH (08:27)
[2016-09-30] MEDS: POTASSIUM CHLORIDE 10 MEQ CONTROLLED RELEASE TAB PO SCH (08:27)
[2016-09-30] MEDS: DOCUSATE SODIUM 100 MG CAP PO SCH (08:27)
[2016-09-30] MEDS: METOCLOPRAMIDE HCL 10 MG TAB PO SCH ×2 (08:27→11:23)
[2016-09-30] MEDS: LEVOFLOXACIN 500 MG TAB PO SCH (08:27)
[2016-09-30] MEDS: METHADONE HCL 10 MG TAB PO SCH ×2 (08:28→11:23)
[2016-09-30] MEDS: LACTULOSE SYRUP 20 GM/30 ML CUP PO SCH (08:28)
[2016-09-30] MEDS: INSULIN DETEMIR 100 UNITS/ML VIAL SQ SCH (08:30)
[2016-09-30] MEDS ORDERED: POTASSIUM CHLORIDE 10 MEQ CONTROLLED RELEASE TAB PO SCH (09:00)
--- NOTE | 2016-09-30 10:16 | RADRPT ---
EXAM DATE/TIME: 09/30/2016 07:21 [place] COMPARISON: CHEST SINGLE AP, September 25, 2016, 6:02. INDICATIONS : Short of breath, sore throat. MEDICAL HISTORY : None. SURGICAL HISTORY : None. ENCOUNTER: Subsequent ACUITY: 1 week PAIN SCORE: 0/10 LOCATION: Bilateral chest FINDINGS: A single view of the chest demonstrates the lungs to be symmetrically aerated without evidence of mas s, infiltrate or effusion. The cardiomediastinal contours are unremarkable. Osseous structures are intact. CONCLUSION: No acute disease. Oren Navarrete MD FACR on September 30, 2016 at 10:14 Board Certified Radiologist. This report was verified electronically.
[2016-09-30] MEDS ORDERED: LEVA500T20 PO (11:16)
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
[2016-09-30 12:00] VITALS: BP 124/67; PULSE 79; RESP 20; TEMP 96.4; O2SAT 97
== END 2016-09-30 13:34 | disposition home health service (06) | DRG 464 ==
LOC: N07B 08:13
PROVIDERS: ADMIT Hospitalist; ATTEND Hospitalist
PROC: 0JDN0ZZ Extraction of Right Lower Leg Subcutaneous Tissue and Fascia, Open Approach (ICD-10-PCS; 2016-09-23)
PROC: 0HBKXZZ Excision of Right Lower Leg Skin, External Approach (ICD-10-PCS; principal; 2016-09-23 13:18)
DX: T87.81 Dehiscence of amputation stump (principal); N17.9 Acute kidney failure, unspecified; K31.84 Gastroparesis; I50.9 Heart failure, unspecified; E11.43 Type 2 diabetes mellitus with diabetic autonomic (poly)neuropathy; I11.0 Hypertensive heart disease with heart failure; E66.01 Morbid (severe) obesity due to excess calories; Y83.8 Other surgical procedures as the cause of abnormal reaction of the patient, or of later complication, without mention of misadventure at the time of the procedure; Y83.5 Amputation of limb(s) as the cause of abnormal reaction of the patient, or of later complication, without mention of misadventure at the time of the procedure; E78.5 Hyperlipidemia, unspecified; G89.4 Chronic pain syndrome; F41.9 Anxiety disorder, unspecified; F32.9 Major depressive disorder, single episode, unspecified; I73.9 Peripheral vascular disease, unspecified; G47.33 Obstructive sleep apnea (adult) (pediatric); F17.210 Nicotine dependence, cigarettes, uncomplicated; Y92.9 Unspecified place or not applicable; Z89.512 Acquired absence of left leg below knee; Z79.4 Long term (current) use of insulin
CPT/HCPCS: 71010; 80048; 80053; 81001; 82948; 83735; 85007; 85025; 85027; 87015; 87040; 87070; 87077; 87102; 87116; 87186; 87205; 87206; 88304; 88305; J0690; J1170; J1815; J1956; J2250; J2270; J2405; J2543; J2710; J3010; J3370; J3475; J7030; J7050